=== PATIENT | female | born 1940 | race Caucasian/White ===

== ENCOUNTER 2024-07-12 19:20 | Inpatient (IN) | payer MEDICARE, SELFPAY ==
--- NOTE | 2024-07-12 18:56 | CT_ITS ---
PROCEDURE INFORMATION: Exam: CTA Chest With Contrast Exam date and time: 07/12/2024 7:38 PM Age: 83 years old Clinical indication: Shortness of breath; Additional info: Respiratory distress, pna vs pe TECHNIQUE: Imaging protocol: Computed tomographic angiography of the chest with contrast. Exam focused on the arteries. 3D rendering (Not supervised by radiologist): MIP and/or 3D reconstructed images were created by the technologist. Radiation optimization: All CT scans at this facility use at least one of these dose optimization techniques: automated exposure control; mA and/or kV adjustment per patient size (includes targeted exams where dose is matched to clinical indication); or iterative reconstruction. Contrast material: ISOUVE 370; Contrast volume: 70 ml; Contrast route: INTRAVENOUS (IV); COMPARISON: No relevant prior studies available. FINDINGS: Tubes, catheters and devices: There is a left chest implanted cardiac device. Pulmonary arteries: There is no evidence for clinically relevant pulmonary arterial filling defect. Tiny distal filling defects may be present but are of dubious clinical significance. Aorta: There is atherosclerotic disease of the visualized aorta and its major branch vessels. Lungs: Dense consolidations of the lower lungs are concerning for pneumonia. There are scattered areas of emphysema throughout the lungs. Scattered areas of bronchial wall thickening which are likely chronic inflammatory. A few areas of subpleural reticulation are noted, nonspecific. Pleural spaces: Small partially loculated left pleural effusion is noted. Heart: The heart is enlarged. Lymph nodes: Unremarkable. No enlarged lymph nodes. Gallbladder and biliary ducts: There is cholelithiasis within an otherwise normal gallbladder. Bones/joints: There is diffuse degenerative disease of the visualized osseous structures. There is exaggeration of the spinal curvature. There is diffuse osseous demineralization. Soft tissues: Unremarkable. IMPRESSION: 1. Dense consolidations of the lower lungs are concerning for pneumonia. 2. Small partially loculated left pleural effusion is noted. 3. No evidence for clinically relevant pulmonary arterial filling defect.
[2024-07-12 19:38] VITALS: PULSE 80; O2SAT 95
[2024-07-12] MEDS: SODIUM CHLORIDE 0.9% 10ML SYR (RAD ONLY) 10 ML IV (19:39)
[2024-07-12] MEDS: 0.9 % SODIUM CHLORIDE 50 ML VIAL IV (19:40)
[2024-07-12] MEDS: IOPAMIDOL-370 (76%);100ML BOTTLE 70 ML IV (19:40)
[2024-07-12 19:59] VITALS: BMI 30.4
[2024-07-12 20:00] VITALS: BP 112/62; PULSE 71; PULSE 72; RESP 22; O2SAT 93
--- NOTE | 2024-07-12 20:00 | P.HP_ITS ---
[facility] Disclaimer: The information contained in this section may have been updated after the patient was seen, as this information can be updated by other users. Social History Have you lived/traveled outside US in past 30 days?: No Contact w/someone who lives/traveled outside US past 30 days?: No Exposure to someone with infectious disease in past 14 days?: No Do you have a fever (greater than 100.4 F or 38 C)?: No Have you tested positive for COVID-19: No Exposed to someone with COVID-19 in past 14 days?: No Do you have a sore throat?: No Do you have a cough?: No Do you have any weakness?: No Do you have any diarrhea?: No Are you experiencing any unusual bleeding?: No Do you have any muscle aches/pain?: No Do you have any abdominal pain?: No Are you experiencing loss of taste or smell?: No Meds Home Medications and Allergies New Prescriptions to Start Prescriptions: Allergies Allergy/AdvReac Type Severity Reaction Status Date / Time From ANTIBIOTIC CREAM + PAIN Allergy Mild Uncoded 05/21/17 14:44 RELIEF Penicillin Allergy Unknown Uncoded 05/21/17 14:44 Exam Data for Last 24 hours Vital signs and Labs for Last 24 Hours: Pulse Resp BP Pulse Ox O2 Del Method O2 Flow Rate 72 22 112/62 93 L Nasal Cannula 6 07/12/24 20:00 07/12/24 20:00 07/12/24 20:00 07/12/24 20:00 07/12/24 20:00 07/12/24 20:00 I & O for Last 24 hours: Intake & Output 07/09/24 07/10/24 07/11/24 07/12/24 23:59 23:59 23:59 23:59 Weight 88 kg
[2024-07-12] MEDS: AMIODARONE HCL 150 MG in DEXTROSE 5 % IN WATER 100 ML 618 MG IV (20:32)
[2024-07-12] MEDS: AMIODARONE HCL 900 MG in DEXTROSE 5 % IN WATER 500 ML 34.53 MG IV (20:42)
--- NOTE | 2024-07-12 20:54 | ECG_ITS ---
APPROVED REPORT Exam: Resting ECG HR:66 bpm ECG Measurements Heart Rate 66 AXES [place] 178 P 167 QRSd 93 QRS 175 QT 497 T 160 QTc 511 Conclusion SINUS RHYTHM POSSIBLE RIGHT VENTRICULAR HYPERTROPHY [SOME/ALL OF: PROMINENT R IN V1, LATE TRANSITION, RAD, LAURA, SSS] INFERIOR MYOCARDIAL INFARCTION , PROBABLY OLD [40+ ms Q WAVE AND/OR ST/T ABNORMALITY IN II/aVF] ABNORMAL ECG UNCONFIRMED REPORT Electronically signed by : Urbano Whitaker MD 07/13/2024 07:50:05
[2024-07-12 21:08] LABS: Basophils % 0.1 % (0.1-2.0); Hematocrit 32.7 % (37.0-47.0); Hemoglobin 10.3 g/dL (12.2-16.2); Lymphocytes # 0.3 K/mm3 (0.7-4.5); Lymphocytes % 2.2 % (10-50); Mean Corpuscular HGB Conc 31.5 g/dL (31.8-35.4); Mean Corpuscular Hemoglobin 28.6 pg (27.0-31.2); Mean Corpuscular Volume 90.8 fl (81-99); Mean Platelet Volume 10.9 fl (7.4-10.4); Monocytes % 0.3 % (1.7-9.3); Neutrophils # 11.8 K/mm3 (1.8-7.8); Neutrophils % 95.9 % (37.0-80.0); Platelet Count 129 K/mm3 (142-424); Red Cell Distribution Width 14.1 % (11.5-17.5); White Blood Count 12.3 K/mm3 (4.8-10.8)
[2024-07-12 21:10] LABS: MANUAL DIFFERENTIAL MANUAL DIFFERENTIAL (MANUAL DIFF)
[2024-07-12 21:22] LABS: Adenovirus,PCR Not Detected (NotDetected); Bordetella Pertussis Not Detected (NotDetected); Chlamydophila Pneumoniae, PCR Not Detected (NotDetected); Coronavirus 19, PCR Not Detected (NotDetected); Coronavirus 229E Not Detected (NotDetected); Coronavirus NL63 Not Detected (NotDetected); Coronavirus OC43 Not Detected (NotDetected); Coronovirus HKU1,PCR Not Detected (NotDetected); Human Metapneumovirus Not Detected (NotDetected); Influenza A, PCR Not Detected (NotDetected); Influenza AH1, 2009 Not Detected (NotDetected); Influenza AH1, PCR Not Detected (NotDetected); Influenza AH3,PCR Not Detected (NotDetected); Influenza B, PCR Not Detected (NotDetected); Mycoplasma Pneumoniae, PCR Not Detected (NotDetected); Parainfluenza 1, PCR Not Detected (NotDetected); Parainfluenza 2, PCR Not Detected (NotDetected); Parainfluenza 3, PCR Not Detected (NotDetected); Parainfluenza 4, PCR Not Detected (NotDetected); Respiratory Syncytial Virus Not Detected (NotDetected); Rhinovirus/Enterovirus Not Detected (NotDetected)
[2024-07-12 21:25] LABS: Alanine Aminotransferase 32 U/L (12-78); Albumin Level 3.6 g/dl (3.5-5.0); Albumin/Globulin Ratio 1.3 (1.1-1.8); Alkaline Phosphatase 52 U/L (38-126); Anion Gap 16.3 mEq/L (5-15); Aspartate Amino Transferase 66 U/L (14-36); Bilirubin,Total 0.5 mg/dl (0.2-1.3); Blood Urea Nitrogen 17 mg/dl (7-17); Calcium 8.3 mg/dl (8.4-10.2); Carbon Dioxide 24 mmol/L (22.0-30.0); Chloride 101 mmol/L (98-107); Creatinine Clearance Estimated 61 mL/min (50-200); Estimated Glomerular Filt Rate 69 ml/min (>60); GFR (African American) 83 ML/MIN (>60); Globulin 2.8 g/dL (1.3-3.2); Glucose 225 mg/dl (74-100); Magnesium 1.6 mg/dl (1.6-2.3); Potassium 4.3 mmoL/L (3.5-5.1); Sodium 137 mmol/L (136-145); Total Protein,Serum 6.4 g/dl (6.3-8.2)
[2024-07-12 21:26] LABS: Lactic Acid 3.8 mmol/L (0.7-2.1)
[2024-07-12] MEDS: CEFTRIAXONE SODIUM 2 GM in 0.9 % SODIUM CHLORIDE 100 ML IV (21:31)
[2024-07-12 21:38] LABS: Troponin I 0.31 ng/ml (0.00-0.034)
[2024-07-12] MEDS: DOXYCYCLINE HYCLATE 100 MG in 0.9 % SODIUM CHLORIDE 250 ML 166.667 MG IV (21:38)
[2024-07-12 21:44] LABS: PTT Heparin (inpatient only) > 139.0 Seconds (50-75)
[2024-07-12 21:47] LABS: Lymphocytes % 4 % (10-50); Neutrophils % 96 % (42-76); RBC Morphology Normal; Total Cells Counted 100
[2024-07-12 21:48] LABS: Platelet Estimate Slight Decrease
[2024-07-12 22:00] VITALS: BP 114/58; PULSE 67; O2SAT 94
[2024-07-12 23:00] VITALS: BP 117/53; PULSE 62; RESP 16; O2SAT 94
[2024-07-12] MEDS: HEPARIN 25,000 UNITS/D5W 500 ML 29 UNIT IV (23:05)
[2024-07-13] VITALS (27 sets, daily range): BP systolic 108–173; BP diastolic 47–131; PULSE 62–102; RESP 16–25; TEMP 36.4–36.9; O2SAT 92–96; BMI 29.9
[2024-07-13] MEDS: IPRATROPIUM BROMIDE 0.5 MG/2.5ML SOLUTION IH ×4 (00:13→18:28)
[2024-07-13] MEDS: LEVALBUTEROL 1.25MG/3ML NEB 1.25 MG IH ×4 (00:13→18:28)
[2024-07-13] MEDS: HEPARIN DRIP CONSULT 1 EACH NOTAPPLIC (00:27)
[2024-07-13 01:04] LABS: Reflex Lactic Add Lactic Reflex
[2024-07-13 02:24] LABS: Lactic Acid Follow Up (RFLX 1) 2.7 mmol/L (0.7-2.1)
[2024-07-13 02:31] LABS: PTT Heparin (inpatient only) > 139.0 Seconds (50-75)
[2024-07-13] MEDS: HEPARIN 25,000 UNITS/D5W 500 ML 24 UNIT IV (02:48)
--- NOTE | 2024-07-13 03:09 | P.HP_ITS ---
History of Present Illness *Admission Date: 07/12/24 *Reason for visit:: Shortness of breath, rapid heart rate *History of present illness: This is an 83-year-old female with a past medical history of hypertension, atrial fibrillation on Eliquis, hyperlipidemia, prior cerebrovascular accident without residual deficit, COPD, tobacco dependence, and recently diagnosed malignant bladder tumor status post resection at the [facility] on July 10, who originally presented to [facility] via EMS with fever, cough, nausea, and vomiting that began the previous evening. She reports that she underwent bladder resection under general anesthesia with an indwelling urinary catheter placement on July 10. She felt well initially but developed nausea after supper on July 11, which progressively worsened throughout the day. She began to feel increasingly unwell and contacted EMS due to persistent symptoms of fever, cough, and generalized malaise. Upon arrival to the [facility] emergency department, her vital signs showed blood pressure of 148/67, heart rate 96, respiratory rate 20, temperature 100.3?F, and oxygen saturation of 95% on room air. Initial evaluation included a stat chest X-ray, which showed left basilar infiltrates. Urinalysis was positive for nitrites and leukocytes, though suspected to be contaminated. She was started on IV Rocephin, followed by oral Levaquin 500 mg, Tylenol for fever, and DuoNebs for respiratory support. Shortly after receiving DuoNebs, she developed atrial fibrillation with a rapid ventricular response (RVR) at 162 bpm. She was given 1.5 mg of IV Lopressor, which failed to reduce the heart rate, followed by 10 mg IV diltiazem, then started on a diltiazem drip. Troponin was elevated at 0.45, and laboratory work showed WBC 13.6, hemoglobin 11.8, creatinine 1.2, GFR 45, AST 43, lactic acid 1.6, and procalcitonin 0.56. Given her clinical status, consultation was made with Dr. Carrasquillo (cardiology), who recommended initiating anticoagulation with low-dose heparin and transferring her to [facility]. Upon arrival at [facility], she was noted to be on a 15L non-rebreather with oxygen saturation of 92%, and a diltiazem drip at 15 mg/hr. Her heart rate remained elevated at 135-140 bpm, with a blood pressure of 90/55. A CTA of the chest was performed, which ruled out pulmonary embolism but confirmed dense consolidations in the lower lungs concerning for pneumonia and a small partially loculated left pleural effusion. Scattered emphysematous changes with chronic bronchial wall thickening were also noted. Due to persistent tachycardia despite diltiazem, the patient was transitioned to an amiodarone bolus, which successfully converted her to sinus rhythm. An amiodarone drip was continued, and the patient reported significant improvement in symptoms with heart rate deceleration. She was successfully weaned from 15L non-rebreather to 5L nasal cannula and then to room air, maintaining an oxygen saturation of 92%. Repeat laboratory work at [facility] showed WBC 12.3, hemoglobin 10.3, anion gap 16.3, lactic acid initially 3.8 and down to 2.7 on repeat, troponin 0.31 (down from 0.45), and blood glucose 317, though she denies a history of diabetes. A repeat urinalysis was ordered and is pending. Given her improving hemodynamics and transition to sinus rhythm, she remains under close monitoring for pneumonia and potential sepsis, with continued antibiotic therapy and supportive care. [facility] Disclaimer: The information contained in this section may have been updated after the patient was seen, as this information can be updated by other users. Medical History (Updated 07/13/24 @ 18:10 by Josiah Hernandez MD) Pleural effusion, left Pulmonary emphysema Acute respiratory failure with hypoxia Bladder cancer Breast cancer History of stroke Rheumatoid arthritis Atrial fibrillation Hypertension COPD (chronic obstructive pulmonary disease) Surgical History H/O transurethral resection of bladder tumor (TURBT) Family History Other No significant family history Social History Smoking Status: Current every day smoker alcohol intake: never current occupational status: retired Travel in the last 8 weeks: Inside the [place] Have you lived/traveled outside US in past 30 days?: No Contact w/someone who lives/traveled outside US past 30 days?: No Exposure to someone with infectious disease in past 14 days?: No Do you have a fever (greater than 100.4 F or 38 C)?: No Have you tested positive for COVID-19: No Exposed to someone with COVID-19 in past 14 days?: No Do you have a sore throat?: No Do you have a cough?: No Do you have any weakness?: No Do you have any diarrhea?: No Are you experiencing any unusual bleeding?: No Do you have any muscle aches/pain?: No Do you have any abdominal pain?: No Are you experiencing loss of taste or smell?: No Other Medical History Have you received the Flu Vaccine for this season: Yes Have you received the Pneumonia Vaccine: Yes Review of Systems Review of Systems Review of systems (narrative): 13 point review of systems negative except as listed in HPI Meds Home Medications and Allergies Home Medications ?Medication ?Instructions ?Recorded ?Confirmed ?Type anastrozole 1 mg tablet 1 mg PO DAILY 07/12/24 07/12/24 History apixaban 5 mg tablet 5 mg PO BID 07/12/24 07/13/24 History escitalopram oxalate 20 mg tablet 20 mg PO DAILY 07/12/24 07/12/24 History famotidine 20 mg tablet 20 mg PO BID 07/12/24 07/12/24 History fluticasone furoate 100 100 mcg inhalation DAILY 07/12/24 07/12/24 History mcg/actuation blister powder for inhalation (Arnuity Ellipta) furosemide 20 mg tablet 20 mg PO DAILY 07/12/24 07/13/24 History hydralazine 25 mg tablet 25 mg PO BID 07/12/24 07/13/24 History metoprolol succinate 25 mg 25 mg PO DAILY 07/12/24 07/12/24 History tablet,extended release 24 hr multivitamin with iron-mineral 1 tab PO DAILY 07/12/24 07/12/24 History nicotine 14 mg/24 hr daily 14 mg transdermal DAILY 07/12/24 07/12/24 History transdermal patch nitroglycerin 0.4 mg sublingual 0.4 mg sublingual NEEDED PRN 07/12/24 07/12/24 History tablet Chest Pain rosuvastatin 40 mg tablet 40 mg PO HS 07/12/24 07/13/24 History vibegron 75 mg tablet 75 mg PO DAILY 07/12/24 07/12/24 History losartan 100 mg tablet 100 mg PO DAILY 07/13/24 07/13/24 History New Prescriptions to Start Prescriptions: Allergies Allergy/AdvReac Type Severity Reaction Status Date / Time bacitracin (From Neosporin Allergy Unknown Unknown Verified 07/13/24 07:49 Plus PainRelief(demond)) allergy reaction neomycin (From Neosporin Allergy Unknown Unknown Verified 07/13/24 07:49 Plus PainRelief(demond)) allergy reaction Penicillins Allergy Unknown Unknown Verified 07/13/24 07:49 allergy reaction polymyxin B (From Neosporin Allergy Unknown Unknown Verified 07/13/24 07:49 Plus PainRelief(demond)) allergy reaction pramoxine (From Neosporin Allergy Unknown Unknown Verified 07/13/24 07:49 Plus PainRelief(demond)) allergy reaction Exam Data for Last 24 hours Vital signs and Labs for Last 24 Hours: Temp Pulse Resp BP Pulse Ox O2 Del Method O2 Flow Rate 97.5 F L 62 16 109/52 L 95 Nasal Cannula 2 07/13/24 00:00 07/13/24 02:00 07/13/24 02:00 07/13/24 02:00 07/13/24 02:00 07/13/24 02:00 07/13/24 02:00 Laboratory Results - last 24 hr 07/12/24 21:00: WBC 12.3 H, RBC 3.60 L, Hgb 10.3 L, Hct 32.7 L, MCV 90.8, MCH 28.6, MCHC 31.5 L, RDW 14.1, Plt Count 129 L, MPV 10.9 H, Neut % (Auto) 95.9 H, Lymph % (Auto) 2.2 L, Gonzales % (Auto) 0.3 L, Eos % (Auto) 0.0 L, Baso % (Auto) 0.1, Neut # (Auto) 11.8 H, Lymph # (Auto) 0.3 L, Gonzales # (Auto) 0.0 L, Eos # (Auto) 0.0, Baso # (Auto) 0.0, Total Counted 100, Neutrophils % (Manual) 96 H, Lymphocytes % (Manual) 4 L, Platelet Estimate Slight decrease, RBC Morphology Normal, APTT > 139.0 H*, Sodium 137, Potassium 4.3, Chloride 101, Carbon Dioxide 24, Anion Gap 16.3 H, BUN 17, Creatinine 0.80, Estimated Creat Clear 61, Estimated GFR 69, Est GFR ( Amer) 83, Glucose 225 H, Lactate 3.8 H, Calcium 8.3 L, Magnesium 1.6, Total Bilirubin 0.5, AST 66 H, ALT 32, Alkaline Phosphatase 52, Troponin I 0.31 H, Total Protein 6.4, Albumin 3.6, Globulin 2.8, Albumin/Globulin Ratio 1.3 07/12/24 21:08: Chlamy pneumoniae PCR Not detected, Adenovirus (PCR) Not detected, B. pertussis DNA (PCR) Not detected, Coronavirus OC43 (PCR) Not detected, Coronavirus HKU1 (PCR) Not detected, Coronavirus 229E (PCR) Not detected, SARS-CoV-2 (PCR) Not detected, Coronavirus NL63 (PCR) Not detected, Human Metapneumovir PCR Not detected, Influenza A (H1) PCR Not detected, Influ A (H1N1/09) PCR Not detected, Influenza A (H3) PCR Not detected, Influenza Type A (PCR) Not detected, Influenza Type B (PCR) Not detected, M. pneumoniae (PCR) Not detected, Parainfluenza 1 (PCR) Not detected, Parainfluenza 2 (PCR) Not detected, Parainfluenza 3 (PCR) Not detected, Parainfluenza 4 (PCR) Not detected, RSV (PCR) Not detected, Entero/Rhino (PCR) Not detected 07/13/24 02:05: APTT > 139.0 H*, Lactate 2.7 H I & O for Last 24 hours: Intake & Output 07/10/24 07/11/24 07/12/24 07/13/24 23:59 23:59 23:59 23:59 Intake Total 309.339 / 309.339 Balance 309.339 / 309.339 Weight 88 kg Constitutional Constitutional: moderate distress *Routine HEENT Exam Head: Present normocephalic Eye: Present EOMI and PERRL ENT: Present mucous membranes moist *Routine Neck Exam Neck: Present supple; Absent lymphadenopathy *Routine Respiratory Exam Respiratory: Present CTA bilaterally and diminished air movement (Bilateral lower lobes) *Routine Cardiovascular Exam Cardiovascular: Present RRR *Routine Abdominal Exam Abdominal: Present soft and normoactive bowel sounds; Absent tenderness *Routine Rectal Exam Rectal:: deferred *Routine Genitalia Exam Genitalia:: deferred *Routine Extremities Exam Extremities: Absent cyanosis, clubbing or edema *Routine Skin Exam Skin: Present dry, pallor and warm; Absent rash *Routine Neurological Exam Neurological: Present alert and oriented X3 Assessment and Plan *Assessment and plan (1) Tobacco dependence: Status: Acute Category: Medical Code(s): F17.200 - Nicotine dependence, unspecified, uncomplicated (2) Atrial fibrillation with rapid ventricular response: Status: Acute Category: Medical Code(s): I48.91 - Unspecified atrial fibrillation (3) Leukocytosis: Status: Acute Category: Medical Code(s): D72.829 - Elevated white blood cell count, unspecified (4) Hyperglycemia: Status: Acute Category: Medical Code(s): R73.9 - Hyperglycemia, unspecified (5) Elevated lactic acid level: Status: Acute Category: Medical Code(s): R79.89 - Other specified abnormal findings of blood chemistry (6) Pneumonia: Status: Acute Category: Medical Code(s): J18.9 - Pneumonia, unspecified organism (7) Thrombocytopenia: Status: Acute Category: Medical Code(s): D69.6 - Thrombocytopenia, unspecified Plan Medical Decision Making: This is an 83-year-old female with hypertension, atrial fibrillation on Eliquis, COPD, prior CVA, and recent bladder tumor resection, presenting with fever, cough, and nausea found to have community-acquired pneumonia with possible sepsis. She initially developed atrial fibrillation with RVR refractory to diltiazem, requiring conversion to sinus rhythm with amiodarone. CTA ruled out PE but showed dense lower lung consolidation with a small pleural effusion, and she was transitioned to IV ceftriaxone and IV doxycycline for pneumonia. She remains hemodynamically stable with improving lactate (3.8 to 2.7) but has persistent hyperglycemia (317) without known diabetes, prompting A1c evaluation in the morning. She is being closely monitored for respiratory status, infection resolution, and recurrent arrhythmia while continuing supportive care. Troponin is downtrending from 450-317 will continue to trend NSTEMI * Troponin elevated at 0.45, downtrending to 0.31, consistent with demand ischemia rather than acute plaque rupture * ECG showed atrial fibrillation with RVR, no acute ischemic ST changes * Likely secondary to sepsis and tachyarrhythmia-related myocardial strain * Continue amiodarone drip for rhythm control, transition to oral as appropriate * Continue heparin drip * Monitor for recurrent ischemia, repeat troponin if indicated * Cardiology has been consulted Atrial fibrillation with rapid ventricular response, now converted to sinus rhythm * Initially refractory to diltiazem, converted to sinus rhythm with amiodarone bolus * Continued on amiodarone drip, monitor for bradycardia and QT prolongation * Maintain anticoagulation with Eliquis * Monitor for recurrence of arrhythmia Community-acquired pneumonia * CTA chest shows dense consolidation in the lower lungs concerning for pneumonia, small partially loculated left pleural effusion * WBC 12.3, improving from 13.6; downtrending lactic acid (3.8 to 2.7), consistent with resolving infection * Transitioned to IV ceftriaxone and IV doxycycline for continued CAP coverage * Monitor for clinical improvement, repeat imaging if no response to treatment Sepsis secondary to pneumonia * Initial presentation with low-grade fever, slight leukocytosis, and lactic acid of 3.8, now improving * Hemodynamically stable after IV fluids and antibiotics * Continue to monitor vital signs, lactate, and inflammatory markers Chronic obstructive pulmonary disease with acute exacerbation * Likely triggered by pneumonia and systemic illness * Initially required 15L non-rebreather, now weaned to room air with SpO2 of 92% * Continued DuoNebs as needed for symptomatic relief * Monitor for respiratory decompensation * Pulmonary consult requested Thrombocytopenia (Platelet count 138) * Mild thrombocytopenia, likely multifactorial (infection, recent surgery, anticoagulation with heparin drip) * No active bleeding or clinical signs of platelet dysfunction * Monitor serial platelet counts to assess for further decline * Monitor for heparin-induced thrombocytopenia (HIT), especially with continued heparin drip * Consider switching to alternative anticoagulation if platelet count trends downward * Evaluate for sepsis-related consumption, bone marrow suppression, or medication effect if worsens Chronic kidney disease with acute kidney injury * Creatinine 1.2, GFR 45, stable compared to prior * Monitor renal function while on IV antibiotics and fluids * Avoid nephrotoxic medications, adjust dosing as needed Hyperglycemia, no prior history of diabetes * Blood glucose 317, no reported diabetes history * A1c will be performed in the morning to evaluate for underlying diabetes * Monitor glucose trends and adjust management if needed Suspected bladder cancer with recent resection * Indwelling Coats catheter in place postoperatively * Monitor for any signs of urinary tract infection or catheter-related complications * UA pending for further evaluation * Requested records from do not currently reflect most recent visit since resection only 2 days prior Cardiac pacemaker * No acute pacemaker-related complications noted * Continue routine monitoring Ongoing tobacco use (5-6 cigarettes daily) * Contributing factor to COPD and cardiovascular disease * Offer smoking cessation counseling Disposition * Continue IV ceftriaxone and IV doxycycline for pneumonia * Maintain amiodarone drip with transition to oral as clinically appropriate * Perform A1c in the morning to assess for undiagnosed diabetes * Monitor renal function, electrolytes, and glucose levels * Trend inflammatory markers and reassess need for continued IV antibiotics * Continue supportive care, reassess oxygen needs, and evaluate response to treatment * Patient is DNR/DNI Rounded on patient with nurse practitioner. Personally examined and interviewed patient. Agree with exam findings and care plan as documented.
[2024-07-13 04:14] LABS: Reflex Lactic (2 hrs) Add Lactic Reflex
[2024-07-13 04:27] LABS: PTT Heparin (inpatient only) > 139.0 Seconds (50-75)
[2024-07-13] MEDS: HEPARIN 25,000 UNITS/D5W 500 ML 19 UNIT IV (04:49)
[2024-07-13] MEDS: humaLOG 100 UNITS/ML 10ML VIAL (SSI) SUBCUT ×2 (05:30→11:21)
[2024-07-13 05:38] LABS: Appearance,Urine Slightly Cloudy (Clear); Bilirubin,Urine Negative (Negative); Blood, Urine 3+ (Negative); Glucose,Urine (UA) Negative (Negative); Ketones,Urine Negative (Negative); Leukocyte Esterase,Urine 1+ (Negative); Nitrate,Urine NEGATIVE (Negative); Protein,Urine TRACE (Negative); Specific Gravity, Urine <= 1.005 (1.005-1.030); Urobilinogen,Urine 0.2 EU/dl (0.2)
[2024-07-13 05:39] LABS: Color,Urine Dark Yellow (Yellow)
[2024-07-13 05:40] LABS: Microscopic, Urine URINE MICROSCOPIC (MICROSCOPIC)
[2024-07-13 05:52] LABS: Bacteria,Urine Trace /lpf; RBC,Urine 50-100 #/hpf (0-3); Squamous Epithelial Cell,Urine Occasional #/hpf (0-5)
[2024-07-13 05:56] LABS: PTT Heparin (inpatient only) > 139.0 Seconds (50-75)
--- NOTE | 2024-07-13 06:00 | CA_ITS ---
APPROVED REPORT EXAM: Comprehensive 2D, Doppler, and color-flow Echocardiogram Deaf/Hard Of Hearing Specialist: Yarelis Cabrera RDCS Ht: 5 ft 7 in Wt: 190lbs BSA: 1.98 BP: 109/52 mmHg Indications: CHF,SVT,CVA HISTORY M-Mode Dimensions RVDd 1.71 cm (0.9-2.6) LA Diam 4.76 cm (1.9-4.0) LVDd 5.16 cm (3.5-5.7) LVDs 3.42 cm (3.5-5.7) IVSd 0.76 cm (0.6-1.1) PWd 0.76 cm (0.6-1.1) EF (Teich) 62.20% FS 33.70% EDV (Teich) 127.20 mL ESV (Teich) 48.10 mL LV Diastology E Decel Time 260 (160-240 msec) E/A Ratio 1.4 Mitral Valve MV E Max Jian. 108.0 (40-130 cm/s) MV A Velocity 79.0 (40-130 cm/s) E/A Ratio 1.37 MV PHT 76.0 ms Tricuspid Valve TR P. Velocity 302.00 cm/s RAP Estimate 10.00 mmHg RVSP 46.50 mmHg Left Ventricle The left ventricle is normal size. The left ventricular systolic function is hyperkinetic. There is increased LV wall thickness. Grade 2 diastolic dysfunction is present. LVEF is 70%. Right Ventricle Right ventricle is moderately dilated. The right ventricular systolic function is normal. Atria Left atrium is severely dilated. Right atrium is severely dilated. There is no Doppler evidence of interatrial shunt. Aortic Valve The aortic valve is mildly thickened. There is no aortic valvular stenosis. Mild aortic regurgitation. Mitral Valve The mitral valve leaflets are mildly thickened. No evidence of mitral valve stenosis. Mild mitral regurgitation. Tricuspid Valve Tricuspid valve is grossly normal in structure and function. Moderate tricuspid regurgitation. RVSP is 35-40 mmHg. Pulmonic Valve The pulmonary valve is normal in structure. Mild pulmonic regurgitation. Great Vessels The aortic root is normal in size. The ascending aorta is not well-visualized. IVC is normal in size and collapses >50% with inspiration. Pericardium There is no pericardial effusion. Other Information Study Quality: Fair Conclusion Hypokinetic LV systolic function (LVEF 70%). Grade 2 diastolic dysfunction. Moderate RV dilation with normal RV function. Severe biatrial dilation. Mild AI, mild MR, mild PI. Moderate TR. RVSP 35-40 mmHg. Electronically signed by : Ciara Osullivan MD 07/13/2024 11:08:17
[2024-07-13] MEDS: HEPARIN 25,000 UNITS/D5W 500 ML 14 UNIT IV (06:04)
[2024-07-13 07:38] LABS: Lactic Acid Follow up (RFLX 2) 2.4 mmol/L (0.7-2.1)
[2024-07-13 07:40] LABS: PTT Heparin (inpatient only) 124.6 Seconds (50-75)
[2024-07-13 08:10] LABS: Hemoglobin A1C 5.7 % (4.0-6.0)
--- NOTE | 2024-07-13 08:12 | P.CONPHA_ITS ---
[facility] Pharmacy Heparin Dosing Demographic Data Admission date:: 07/12/24 Date: 07/13/24 Time: 08:12 Allergies Allergy/AdvReac Type Severity Reaction Status Date / Time bacitracin (From Neosporin Allergy Unknown Unknown Verified 07/13/24 07:49 Plus PainRelief(demond)) allergy reaction neomycin (From Neosporin Allergy Unknown Unknown Verified 07/13/24 07:49 Plus PainRelief(demond)) allergy reaction Penicillins Allergy Unknown Unknown Verified 07/13/24 07:49 allergy reaction polymyxin B (From Neosporin Allergy Unknown Unknown Verified 07/13/24 07:49 Plus PainRelief(demond)) allergy reaction pramoxine (From Neosporin Allergy Unknown Unknown Verified 07/13/24 07:49 Plus PainRelief(demond)) allergy reaction Height: 1.7 m Weight: 86.6 kg Indication Medication therapy:: Heparin Current Indications:: AFIB Current Active Problems (Updated 07/13/24 @ 11:03 by Ameya Rae MD) Pleural effusion, left (Acute) Pulmonary emphysema (Acute) Acute respiratory failure with hypoxia (Acute) Thrombocytopenia (Acute) Pneumonia (Acute) Elevated lactic acid level (Acute) Hyperglycemia (Acute) Leukocytosis (Acute) Atrial fibrillation with rapid ventricular response (Acute) Tobacco dependence (Acute) CVA?: No Bleeding problem?: No Kidney disease?: No [place]?: No Desired PTT range:: 50-75 seconds Labs Anticoagulation Lab Results:: 07/12/24 21:00 Hgb 10.3 L Hct 32.7 L Plt Count 129 L Monitoring Dose Monitor 1: Date: 07/12/24 Time: 21:00 PTT Result:: >139 Infusion Rate:: 29 ML/HR Dose Monitor 2: Date: 07/13/24 Time: 02:05 PTT Result:: >139 Infusion Rate:: 24 ML/HR Dose Monitor 3: Date: 07/13/24 Time: 02:38 PTT Result:: >139 Infusion Rate:: 19 ML/HR Dose Monitor 4: Date: 07/13/24 Time: 05:16 PTT Result:: >139 Infusion Rate:: 14 ML/HR Dose Monitor 5: Date: 07/13/24 Time: 06:59 PTT Result:: 124.6 Infusion Rate:: 10 ML/HR Dose Monitor 6: Date: 07/13/24 Time: 09:16 PTT Result:: 65.4 Infusion Rate:: 10 ML/HR Core Measures Is INR > or = 2 at discharge?: No Most Recent Labs:: Laboratory Results - last 24 hr 07/12/24 04:39: Urine Color Dark yellow, Urine Appearance Slightly cloudy, Urine pH 6.0, Ur Specific [place] <= 1.005, Urine Glucose (UA) Negative, Urine Ketones Negative, Urine Bilirubin Negative, Urine Urobilinogen 0.2, Urine RBC 50-100, Urine WBC 5-10, Ur Squamous Epith Cells Occasional, Urine Bacteria Trace 07/12/24 21:00: WBC 12.3 H, RBC 3.60 L, Hgb 10.3 L, Hct 32.7 L, MCV 90.8, MCH 28.6, MCHC 31.5 L, RDW 14.1, Plt Count 129 L, MPV 10.9 H, Neut % (Auto) 95.9 H, Lymph % (Auto) 2.2 L, [place] % (Auto) 0.3 L, Eos % (Auto) 0.0 L, Baso % (Auto) 0.1, Neut # (Auto) 11.8 H, Lymph # (Auto) 0.3 L, [place] # (Auto) 0.0 L, Eos # (Auto) 0.0, Baso # (Auto) 0.0, Total Counted 100, Neutrophils % (Manual) 96 H, Lymphocytes % (Manual) 4 L, Platelet Estimate Slight decrease, RBC Morphology Normal, APTT > 139.0 H*, Sodium 137, Potassium 4.3, Chloride 101, Carbon Dioxide 24, Anion Gap 16.3 H, BUN 17, Creatinine 0.80, Estimated Creat Clear 61, Estimated GFR 69, Est GFR ( Amer) 83, Glucose 225 H, Lactate 3.8 H, Calcium 8.3 L, Magnesium 1.6, Total Bilirubin 0.5, AST 66 H, ALT 32, Alkaline Phosphatase 52, Troponin I 0.31 H, Total Protein 6.4, Albumin 3.6, Globulin 2.8, Albumin/Globulin Ratio 1.3 07/12/24 21:08: Chlamy pneumoniae PCR Not detected, Adenovirus (PCR) Not detected, B. pertussis DNA (PCR) Not detected, Coronavirus OC43 (PCR) Not detected, Coronavirus HKU1 (PCR) Not detected, Coronavirus 229E (PCR) Not detected, SARS-CoV-2 (PCR) Not detected, Coronavirus NL63 (PCR) Not detected, Human Metapneumovir PCR Not detected, Influenza A (H1) PCR Not detected, Influ A (H1N1/09) PCR Not detected, Influenza A (H3) PCR Not detected, Influenza Type A (PCR) Not detected, Influenza Type B (PCR) Not detected, M. pneumoniae (PCR) Not detected, Parainfluenza 1 (PCR) Not detected, Parainfluenza 2 (PCR) Not detected, Parainfluenza 3 (PCR) Not detected, Parainfluenza 4 (PCR) Not detected, RSV (PCR) Not detected, Entero/Rhino (PCR) Not detected 07/13/24 02:05: APTT > 139.0 H*, Lactate 2.7 H 07/13/24 03:58: APTT > 139.0 H* 07/13/24 05:16: APTT > 139.0 H* 07/13/24 06:59: APTT 124.6 H*, Hemoglobin A1c 5.7, Lactate 2.4 H If INR was < than 2.0 why was therapy stopped?: ELIQUIS RESTARTED Were Heparin and Warfarin started on the same day?: No If not, why?: ALEKSANDER
[2024-07-13] MEDS: CEFTRIAXONE 1 GM 1 GM in 0.9 % SODIUM CHLORIDE 50 ML IV (09:02)
[2024-07-13] MEDS: HYDRALAZINE HCL 25MG TABLET 25 MG PO ×3 (09:02→20:07)
[2024-07-13] MEDS: FAMOTIDINE 20MG TABLET 20 MG PO ×2 (09:03→20:07)
--- NOTE | 2024-07-13 09:11 | P.PN_ITS ---
Subjective *Date: 07/13/24 *Time: 19:19 Interval history: Patient feeling somewhat today. Weaned to 3 L oxygen. No nausea or vomiting. Denies any chest pain. Afebrile overnight. Heart rate better controlled after starting amiodarone. Medical Exam Vital signs and Labs for Last 24 Hours: Vital Signs Temp Pulse Pulse Resp BP BP Pulse Ox 07/13/24 08:16 84 20 127/61 95 07/13/24 08:00 97.5 F L 89 17 138/54 L 92 L 07/13/24 07:00 72 143/57 H 94 L 07/13/24 07:00 07/13/24 06:49 68 07/13/24 06:49 69 07/13/24 06:49 94 L 07/13/24 06:00 73 18 139/63 95 07/13/24 05:00 67 18 131/63 93 L 07/13/24 04:56 07/13/24 04:00 97.7 F 67 18 124/67 93 L 07/13/24 04:00 67 94 L 07/13/24 04:00 67 07/13/24 03:00 68 18 122/58 L 95 07/13/24 03:00 07/13/24 02:00 62 16 109/52 L 95 07/13/24 01:00 69 18 108/47 L 95 07/13/24 01:00 07/13/24 00:14 68 07/13/24 00:00 67 94 L 07/13/24 00:00 97.5 F L 66 20 109/50 L 94 L 07/13/24 00:00 66 07/12/24 23:00 62 16 117/53 L 94 L 07/12/24 22:34 07/12/24 22:00 67 114/58 L 94 L 07/12/24 21:00 07/12/24 20:00 71 07/12/24 20:00 72 22 112/62 93 L 07/12/24 19:38 80 95 O2 Del Method O2 Flow Rate 07/13/24 08:16 Nasal Cannula 3 07/13/24 08:00 Nasal Cannula 3 07/13/24 07:00 Nasal Cannula 3 07/13/24 07:00 Nasal Cannula 3 07/13/24 06:49 07/13/24 06:49 07/13/24 06:49 Nasal Cannula 3 07/13/24 06:00 Nasal Cannula 3 07/13/24 05:00 Nasal Cannula 3 07/13/24 04:56 Nasal Cannula 3 07/13/24 04:00 Nasal Cannula 6 07/13/24 04:00 Nasal Cannula 3 07/13/24 04:00 07/13/24 03:00 Nasal Cannula 3 07/13/24 03:00 Nasal Cannula 3 07/13/24 02:00 Nasal Cannula 2 07/13/24 01:00 Nasal Cannula 6 07/13/24 01:00 Nasal Cannula 6 07/13/24 00:14 07/13/24 00:00 Nasal Cannula 6 07/13/24 00:00 Nasal Cannula 6 07/13/24 00:00 07/12/24 23:00 Nasal Cannula 6 07/12/24 22:34 Nasal Cannula 6 07/12/24 22:00 Nasal Cannula 6 07/12/24 21:00 Nasal Cannula 07/12/24 20:00 07/12/24 20:00 Nasal Cannula 6 07/12/24 19:38 Nasal Cannula 6 Intake and Output 07/12/24 07/13/24 07/13/24 23:59 07:59 15:59 Intake Total 309.339 / 644.339 335 / 644.339 Output Total 1300 / 1300 Balance -990.661 / -655.661 335 / -655.661 Intake: Intake, Oral Amount 120 / 455 335 / 455 Intake, Total IV Amount 189.339 / 189.339 Output: Output, Urine Amount (Catheter) 1300 / 1300 Coats 1300 / 1300 Other: Number of Unmeasured Voids 0 Weight 88 kg 86.6 kg 86.6 kg Patient Weight 07/13/24 23:59 Weight 86.6 kg Laboratory Results - last 24 hr 07/12/24 04:39: Urine Color Dark yellow, Urine Appearance Slightly cloudy, Urine pH 6.0, Ur Specific [place] <= 1.005, Urine Glucose (UA) Negative, Urine Ketones Negative, Urine Bilirubin Negative, Urine Urobilinogen 0.2, Urine RBC 50-100, Urine WBC 5-10, Ur Squamous Epith Cells Occasional, Urine Bacteria Trace 07/12/24 21:00: WBC 12.3 H, RBC 3.60 L, Hgb 10.3 L, Hct 32.7 L, MCV 90.8, MCH 28.6, MCHC 31.5 L, RDW 14.1, Plt Count 129 L, MPV 10.9 H, Neut % (Auto) 95.9 H, Lymph % (Auto) 2.2 L, [place] % (Auto) 0.3 L, Eos % (Auto) 0.0 L, Baso % (Auto) 0.1, Neut # (Auto) 11.8 H, Lymph # (Auto) 0.3 L, [place] # (Auto) 0.0 L, Eos # (Auto) 0.0, Baso # (Auto) 0.0, Total Counted 100, Neutrophils % (Manual) 96 H, Lymphocytes % (Manual) 4 L, Platelet Estimate Slight decrease, RBC Morphology Normal, APTT > 139.0 H*, Sodium 137, Potassium 4.3, Chloride 101, Carbon Dioxide 24, Anion Gap 16.3 H, BUN 17, Creatinine 0.80, Estimated Creat Clear 61, Estimated GFR 69, Est GFR ( Amer) 83, Glucose 225 H, Lactate 3.8 H, Calcium 8.3 L, Magnesium 1.6, Total Bilirubin 0.5, AST 66 H, ALT 32, Alkaline Phosphatase 52, Troponin I 0.31 H, Total Protein 6.4, Albumin 3.6, Globulin 2.8, Albumin/Globulin Ratio 1.3 07/12/24 21:08: Chlamy pneumoniae PCR Not detected, Adenovirus (PCR) Not detected, B. pertussis DNA (PCR) Not detected, Coronavirus OC43 (PCR) Not detected, Coronavirus HKU1 (PCR) Not detected, Coronavirus 229E (PCR) Not detected, SARS-CoV-2 (PCR) Not detected, Coronavirus NL63 (PCR) Not detected, Human Metapneumovir PCR Not detected, Influenza A (H1) PCR Not detected, Influ A (H1N1/) PCR Not detected, Influenza A (H3) PCR Not detected, Influenza Type A (PCR) Not detected, Influenza Type B (PCR) Not detected, M. pneumoniae (PCR) Not detected, Parainfluenza 1 (PCR) Not detected, Parainfluenza 2 (PCR) Not detected, Parainfluenza 3 (PCR) Not detected, Parainfluenza 4 (PCR) Not detected, RSV (PCR) Not detected, Entero/Rhino (PCR) Not detected 07/13/24 02:05: APTT > 139.0 H*, Lactate 2.7 H 07/13/24 03:58: APTT > 139.0 H* 07/13/24 05:16: APTT > 139.0 H* 07/13/24 06:59: APTT 124.6 H*, Hemoglobin A1c 5.7, Lactate 2.4 H I & O for Labs for Last 24 Hours: Intake & Output 07/10/24 07/11/24 07/12/24 07/13/24 23:59 23:59 23:59 23:59 Intake Total 644.339 / 644.339 Output Total 1300 / 1300 Balance -655.661 / -655.661 Weight 88 kg 86.6 kg Constitutional: Present mild distress, obese, chronically ill appearing and cooperative Head: Present atraumatic and normocephalic ENT: Present normal exam Respiratory: Present prolonged expiratory phase, wheezes, crackles and normal respiratory effort; Absent rhonchi Cardiac: Present Regular Rate Comment:: Irregular rhythm GI: Present soft and normal bowel sounds; Absent distention or tenderness Extremities: Present normal inspection and full ROM Skin: Present intact; Absent erythema Neuro: Present Grossly Intact, alert, awake, oriented x 3 and moves all extremities Assessment and Plan *Assessment and plan (1) Acute respiratory failure with hypoxia: Status: Acute Category: Medical Code(s): J96.01 - Acute respiratory failure with hypoxia (2) Sepsis: Status: Acute Category: Medical Code(s): A41.9 - Sepsis, unspecified organism (3) Pleural effusion, left: Status: Acute Category: Medical Code(s): J90 - Pleural effusion, not elsewhere classified (4) Atrial fibrillation with rapid ventricular response: Status: Acute Category: Medical Code(s): I48.91 - Unspecified atrial fibrillation (5) Pulmonary emphysema: Status: Acute Category: Medical Code(s): J43.9 - Emphysema, unspecified (6) Leukocytosis: Status: Acute Category: Medical Code(s): D72.829 - Elevated white blood cell count, unspecified (7) Hyperglycemia: Status: Acute Category: Medical Code(s): R73.9 - Hyperglycemia, unspecified (8) Elevated lactic acid level: Status: Acute Category: Medical Code(s): R79.89 - Other specified abnormal findings of blood chemistry (9) Pneumonia: Status: Acute Category: Medical Code(s): J18.9 - Pneumonia, unspecified organism (10) Thrombocytopenia: Status: Acute Category: Medical Code(s): D69.6 - Thrombocytopenia, unspecified (11) Tobacco dependence: Status: Acute Category: Medical Code(s): F17.200 - Nicotine dependence, unspecified, uncomplicated (12) Bladder cancer: Status: Chronic Category: Medical Code(s): C67.9 - Malignant neoplasm of bladder, unspecified Plan This is an 83-year-old female with hypertension, atrial fibrillation on Eliquis, COPD, prior CVA, and recent bladder tumor resection, presenting with fever, cough, and nausea found to have community-acquired pneumonia with possible sepsis. She initially developed atrial fibrillation with RVR refractory to diltiazem, requiring conversion to sinus rhythm with amiodarone. CTA ruled out PE but showed dense lower lung consolidation with a small pleural effusion, and she was transitioned to IV ceftriaxone and IV doxycycline for pneumonia. She remains hemodynamically stable with improving lactate (3.8 to 2.7) but has persistent hyperglycemia (317) without known diabetes, prompting A1c evaluation in the morning. She is being closely monitored for respiratory status, infection resolution, and recurrent arrhythmia while continuing supportive care. Troponin is downtrending from 450-317 will continue to trend. Patient showing improvement this morning. Continuing on amiodarone. Transition to stepdown level of care. Oxygen weaning. Overall doing well. Continues to require patient management. Therapy evaluated, will need placement for rehab. Problems addressed as follows: NSTEMI A-fib with RVR - Discussed case with cardiology, patient has known history of A-fib, responded well to amiodarone. Resume home metoprolol and Eliquis. Elevated troponin likely secondary to demand ischemia from A-fib RVR consistent with type II NSTEMI. Recommend considering ischemic workup as an outpatient. -Echo obtained, formal read still pending. -Continue Eliquis 5 mg twice daily -Complete amiodarone drip. Currently in sinus rhythm. Will hold on further initiation of amiodarone orally just yet -Troponin elevated at 0.45, down trended to 0.3, type II NSTEMI Sepsis Community acquired pneumonia Acute hypoxemic respiratory failure OPD -CTA chest obtained showing dense consolidation in lower lobes with small loculated left-sided pleural effusion -White count improved today at 10.6. Hemoglobin 9.6. Repeat CBC, CMP, magnesium ordered for the morning. - Comprehensive respiratory panel negative - Discussed case with pulmonology, recommend continuing ceftriaxone and azithromycin pending cultures. Nasal MRSA swab obtained. Continue Trelegy 100 inhaler and DuoNebs every 6 hours as needed. Oxygen goal 90%, supplemental oxygen as needed. Currently on 2 L Thrombocytopenia (Platelet count 138) - mild thrombocytopenia, likely multifactorial (infection, recent surgery, anticoagulation with heparin drip) - No active bleeding or clinical signs of platelet dysfunction Chronic kidney disease with acute kidney injury - Creatinine 1.2, GFR 45, stable compared to prior; Creatinine improved with BUN 20, creatinine 0.8. Caution with nephrotoxins. Hyperglycemia, no prior history of diabetes -Glucose elevated at 300 on arrival. A1c obtained normal at 5.7. No signs of diabetes. Discontinued fingersticks and insulin Recurrent bladder cancer with recent resection -Case discussed with urologist from [facility], recommended pulling Coats as she is postop day 3. Monitor for urine output. -Path still pending from biopsies Tobacco use disorder: Nicotine patch while admitted DNR/DNI Eliquis twice daily Cardiac diet
--- NOTE | 2024-07-13 09:32 | P.CONS_ITS ---
History of Present Illness History of present illness: Ms. Arellano is a 83-year-old female current smoker greater than [id number] smoking history, COPD at baseline Trelegy 100 inhaler not using any oxygen supplementation with reported history of hypertension atrial fibrillation on Eliquis hyperlipidemia COPD, CVA history of bladder tumor status postresection on Jul 10 at [facility] presented with worsening respiratory distress cough fever nausea vomiting and pulmonary was called for further evaluation and management. Patient now admits significant improvement in her respiratory status. Multiple other complaints including upper extremity tremors, bladder spasms and pain PFSH [facility] Disclaimer: The information contained in this section may have been updated after the patient was seen, as this information can be updated by other users. Medical History (Updated 07/13/24 @ 11:03 by Ameya Rae MD) Pleural effusion, left Pulmonary emphysema Acute respiratory failure with hypoxia Bladder cancer Breast cancer History of stroke Rheumatoid arthritis Atrial fibrillation Hypertension COPD (chronic obstructive pulmonary disease) Surgical History H/O transurethral resection of bladder tumor (TURBT) Family History Other No significant family history Social History (Updated 07/13/24 @ 04:01 by Rasheed Gomez APRN) Smoking Status: Current every day smoker alcohol intake: never current occupational status: retired Travel in the last 8 weeks: Inside the [place] Have you lived/traveled outside US in past 30 days?: No Contact w/someone who lives/traveled outside US past 30 days?: No Exposure to someone with infectious disease in past 14 days?: No Do you have a fever (greater than 100.4 F or 38 C)?: No Have you tested positive for COVID-19: No Exposed to someone with COVID-19 in past 14 days?: No Do you have a sore throat?: No Do you have a cough?: No Do you have any weakness?: No Do you have any diarrhea?: No Are you experiencing any unusual bleeding?: No Do you have any muscle aches/pain?: No Do you have any abdominal pain?: No Are you experiencing loss of taste or smell?: No Review of Systems Constitutional Constitutional: Reports anorexia, Reports body ache(s) and Reports fatigue Eyes Eyes: Denies eye discharge, Denies dry eyes, Denies irritation and Denies itchy eyes ENT Ears, Nose, Mouth, and Throat: Denies epistaxis, Denies facial pain, Denies lip swelling and Denies throat swelling *Cardiovascular Cardiovascular: Reports dyspnea and Reports dyspnea on exertion *Respiratory Respiratory: Denies change in phlegm color, Reports chest congestion, Reports cough, Reports dyspnea, Reports dyspnea on exertion, Denies excessive phlegm production, Denies hemoptysis, Denies pain on inspiration, Denies pain with cough and Denies wheezing *Gastrointestinal Gastrointestinal: Reports abdominal pain, Denies belching and Denies cramping *Musculoskeletal Musculoskeletal: Reports back pain, Reports myalgias and Reports other (No small joint swelling or Pain) Comments: Bilateral upper extremity tremors Psychiatric Psychiatric: Denies homicidal ideation and Denies suicidal ideation Endocrine Endocrine: Reports fatigue and Denies heat intolerance Hematologic/Lymphatic Hematologic/Lymphatic: Denies easy bleeding and Denies lymphadenopathy Allergic/Immunologic Allergic/Immunologic: Denies itchy eyes, Denies lip swelling, Denies throat swelling and Denies wheezing Pulmonology Exam Inpatient Vital signs and Labs for Last 24 Hours: Temp Pulse Resp BP Pulse Ox O2 Del Method O2 Flow Rate 97.5 F L 84 20 127/61 95 Nasal Cannula 3 07/13/24 08:00 07/13/24 08:16 07/13/24 08:16 07/13/24 08:16 07/13/24 08:16 07/13/24 08:16 07/13/24 08:16 Laboratory Results - last 24 hr 07/12/24 04:39: Urine Color Dark yellow, Urine Appearance Slightly cloudy, Urine pH 6.0, Ur Specific [place] <= 1.005, Urine Glucose (UA) Negative, Urine Ketones Negative, Urine Bilirubin Negative, Urine Urobilinogen 0.2, Urine RBC 50-100, Urine WBC 5-10, Ur Squamous Epith Cells Occasional, Urine Bacteria Trace 07/12/24 21:00: WBC 12.3 H, RBC 3.60 L, Hgb 10.3 L, Hct 32.7 L, MCV 90.8, MCH 28.6, MCHC 31.5 L, RDW 14.1, Plt Count 129 L, MPV 10.9 H, Neut % (Auto) 95.9 H, Lymph % (Auto) 2.2 L, [place] % (Auto) 0.3 L, Eos % (Auto) 0.0 L, Baso % (Auto) 0.1, Neut # (Auto) 11.8 H, Lymph # (Auto) 0.3 L, [place] # (Auto) 0.0 L, Eos # (Auto) 0.0, Baso # (Auto) 0.0, Total Counted 100, Neutrophils % (Manual) 96 H, L ymphocytes % (Manual) 4 L, Platelet Estimate Slight decrease, RBC Morphology Normal, APTT > 139.0 H*, Sodium 137, Potassium 4.3, Chloride 101, Carbon Dioxide 24, Anion Gap 16.3 H, BUN 17, Creatinine 0.80, Estimated Creat Clear 61, Estimated GFR 69, Est GFR ( Amer) 83, Glucose 225 H, Lactate 3.8 H, C alcium 8.3 L, Magnesium 1.6, Total Bilirubin 0.5, AST 66 H, ALT 32, Alkaline Phosphatase 52, Troponin I 0.31 H, Total Protein 6.4, Albumin 3.6, Globulin 2.8, Albumin/Globulin Ratio 1.3 07/12/24 21:08: Chlamy pneumoniae PCR Not detected, Adenovirus (PCR) Not detected, B. pertussis DNA (PCR) Not detected, Coronavirus OC43 (PCR) Not detected, Coronavirus HKU1 (PCR) Not detected, Coronavirus 229E (PCR) Not detected, SARS-CoV-2 (PCR) Not detected, Coronavirus NL63 (PCR) Not detected, Human Metapneumovir PCR Not detected, Influenza A (H1) PCR Not detected, Influ A (H1N1/09) PCR Not detected, Influenza A (H3) PCR Not detected, Influenza Type A (PCR) Not detected, Influenza Type B (PCR) Not detected, M. pneumoniae (PCR) Not detected, Parainfluenza 1 (PCR) Not detected, Parainfluenza 2 (PCR) Not detected, Parainfluenza 3 (PCR) Not detected, Parainfluenza 4 (PCR) Not detected, RSV (PCR) Not detected, Entero/Rhino (PCR) Not detected 07/13/24 02:05: APTT > 139.0 H*, Lactate 2.7 H 07/13/24 03:58: APTT > 139.0 H* 07/13/24 05:16: APTT > 139.0 H* 07/13/24 06:59: APTT 124.6 H*, Hemoglobin A1c 5.7, Lactate 2.4 H I & O for Labs for Last 24 Hours: Intake & Output 07/10/24 07/11/24 07/12/24 07/13/24 23:59 23:59 23:59 23:59 Intake Total 644.339 / 644.339 Output Total 1300 / 1300 Balance -655.661 / -655.661 Weight 194 lb 0.108 oz 190 lb 14.725 oz Constitutional: Present moderate distress Head: Present normocephalic and atraumatic ENT: Present normal exam, normal oropharynx and mucous membranes moist Neck: Present normal inspection and full ROM Respiratory: Present respiratory distress, rhonchi, diminished air movement and able to speak in complete sentences; Absent wheezes Cardiac: Present S1/S2, Tachycardia and radial pulses present GI: Present soft and distention; Absent tenderness or guarding Rectal (female): Present deferred (female): Present deferred Skin: Present intact; Absent cyanosis or jaundice Neuro: Present alert, awake and oriented x 3 Extremities: Present normal inspection; Absent clubbing or cyanosis Psychiatric: Present normal affect and cooperative Meds Home Medications and Allergies Home Medications ?Medication ?Instructions ?Recorded ?Confirmed ?Type anastrozole 1 mg tablet 1 mg PO DAILY 07/12/24 07/12/24 History apixaban 5 mg tablet 5 mg PO DAILY 07/12/24 07/13/24 History escitalopram oxalate 20 mg tablet 20 mg PO DAILY 07/12/24 07/12/24 History famotidine 20 mg tablet 20 mg PO BID 07/12/24 07/12/24 History fluticasone furoate 100 100 mcg inhalation DAILY 07/12/24 07/12/24 History mcg/actuation blister powder for inhalation (Arnuity Ellipta) furosemide 20 mg tablet 20 mg PO DAILY 07/12/24 07/13/24 History hydralazine 25 mg tablet 25 mg PO BID 07/12/24 07/13/24 History metoprolol succinate 25 mg 25 mg PO DAILY 07/12/24 07/12/24 History tablet,extended release 24 hr multivitamin with iron-mineral 1 tab PO DAILY 07/12/24 07/12/24 History nicotine 14 mg/24 hr daily 14 mg transdermal DAILY 07/12/24 07/12/24 History transdermal patch nitroglycerin 0.4 mg sublingual 0.4 mg sublingual NEEDED PRN 07/12/24 07/12/24 History tablet Chest Pain rosuvastatin 40 mg tablet 40 mg PO HS 07/12/24 07/13/24 History vibegron 75 mg tablet 75 mg PO DAILY 07/12/24 07/12/24 History losartan 100 mg tablet 100 mg PO DAILY 07/13/24 07/13/24 History New Prescriptions to Start Prescriptions: Allergies Allergy/AdvReac Type Severity Reaction Status Date / Time bacitracin (From Neosporin Allergy Unknown Unknown Verified 07/13/24 07:49 Plus PainRelief(demond)) allergy reaction neomycin (From Neosporin Allergy Unknown Unknown Verified 07/13/24 07:49 Plus PainRelief(demond)) allergy reaction Penicillins Allergy Unknown Unknown Verified 07/13/24 07:49 allergy reaction polymyxin B (From Neosporin Allergy Unknown Unknown Verified 07/13/24 07:49 Plus PainRelief(demond)) allergy reaction pramoxine (From Neosporin Allergy Unknown Unknown Verified 07/13/24 07:49 Plus PainRelief(demond)) allergy reaction Results Laboratory Findings 07/13/24 09:16 07/13/24 09:16 Abnormal lab findings: Abnormal Labs 07/12/24 07/13/24 07/13/24 21:00 02:05 03:58 WBC 12.3 H RBC 3.60 L Hgb 10.3 L Hct 32.7 L MCHC 31.5 L Plt Count 129 L MPV 10.9 H Neut % (Auto) 95.9 H Lymph % (Auto) 2.2 L [place] % (Auto) 0.3 L Eos % (Auto) 0.0 L Neut # (Auto) 11.8 H Lymph # (Auto) 0.3 L [place] # (Auto) 0.0 L Neutrophils % (Manual) 96 H Lymphocytes % (Manual) 4 L APTT > 139.0 H* > 139.0 H* > 139.0 H* Anion Gap 16.3 H Glucose 225 H Lactate 3.8 H 2.7 H Calcium 8.3 L AST 66 H Troponin I 0.31 H 07/13/24 07/13/24 05:16 06:59 WBC RBC Hgb Hct MCHC Plt Count MPV Neut % (Auto) Lymph % (Auto) [place] % (Auto) Eos % (Auto) Neut # (Auto) Lymph # (Auto) [place] # (Auto) Neutrophils % (Manual) Lymphocytes % (Manual) APTT > 139.0 H* 124.6 H* Anion Gap Glucose Lactate 2.4 H Calcium AST Troponin I Assessment and Plan *Assessment and plan (1) Pneumonia: Status: Acute Category: Medical Code(s): J18.9 - Pneumonia, unspecified organism (2) Acute respiratory failure with hypoxia: Status: Acute Category: Medical Code(s): J96.01 - Acute respiratory failure with hypoxia (3) Pulmonary emphysema: Status: Acute Category: Medical Code(s): J43.9 - Emphysema, unspecified (4) Pleural effusion, left: Status: Acute Category: Medical Code(s): J90 - Pleural effusion, not elsewhere classified Plan Ms. Arellano is a 83-year-old female current smoker greater than [id number] smoking history, COPD at baseline Trelegy 100 inhaler not using any oxygen supplementation with reported history of hypertension atrial fibrillation on Eliquis hyperlipidemia COPD, CVA history of bladder tumor status postresection on Jul 10 at [facility] presented with worsening respiratory distress cough fever nausea vomiting and pulmonary was called for further evaluation and management. Patient upon admission found to be in A-fib RVR recently, transition amiodarone with improved heart rate also on her Symbicort meds from 15 L room air. CTA upon admission no evidence of pulmonary embolism. Bilateral lower lobe consolidative changes right greater than left along with small left pleural effusion. Afebrile. Hemodynamically stable. Mild neutrophilic predominant leukocytosis. Comprehensive respiratory viral PCR panel negative. Currently receiving ceftriaxone and doxycycline along with Trelegy inhaler and nebulization therapies. Patient surgery as outpatient, discharged home same day. Plan: Continue ceftriaxone azithromycin pending culture results. Follow-up with nasal MRSA PCR and sputum cltures Incentive spirometry and flutter valve Trelegy 100 inhaler along with DuoNebs 4 times daily as needed Continue oxygen supplementation to maintain O2 saturation goal of 90% and above. Weaned to 1 L with saturations maintaining at 95% and above. Continue to wean as tolerated.
[2024-07-13 09:35] LABS: Albumin Level 3.4 g/dl (3.5-5.0); Chloride 103 mmol/L (98-107); Potassium 3.6 mmoL/L (3.5-5.1); Sodium 136 mmol/L (136-145)
[2024-07-13 09:37] LABS: Basophils % 0.1 % (0.1-2.0); Hematocrit 29.9 % (37.0-47.0); Hemoglobin 9.6 g/dL (12.2-16.2); Lymphocytes # 0.3 K/mm3 (0.7-4.5); Lymphocytes % 3.2 % (10-50); Mean Corpuscular HGB Conc 32.1 g/dL (31.8-35.4); Mean Corpuscular Hemoglobin 28.7 pg (27.0-31.2); Mean Corpuscular Volume 89.3 fl (81-99); Mean Platelet Volume 10.9 fl (7.4-10.4); Monocytes # 0.1 K/mm3 (0.1-1.0); Monocytes % 1.1 % (1.7-9.3); Neutrophils % 93.6 % (37.0-80.0); Platelet Count 127 K/mm3 (142-424); Red Blood Count 3.35 M/mm3 (4.20-5.40); Red Cell Distribution Width 14.1 % (11.5-17.5); White Blood Count 10.6 K/mm3 (4.8-10.8)
[2024-07-13 09:38] LABS: Alanine Aminotransferase 28 U/L (12-78); Albumin/Globulin Ratio 1.2 (1.1-1.8); Alkaline Phosphatase 53 U/L (38-126); Anion Gap 12.6 mEq/L (5-15); Aspartate Amino Transferase 56 U/L (14-36); Bilirubin,Total 0.2 mg/dl (0.2-1.3); Blood Urea Nitrogen 20 mg/dl (7-17); Calcium 8.1 mg/dl (8.4-10.2); Carbon Dioxide 24 mmol/L (22.0-30.0); Creatinine Clearance Estimated 60 mL/min (50-200); Estimated Glomerular Filt Rate 69 ml/min (>60); GFR (African American) 83 ML/MIN (>60); Globulin 2.9 g/dL (1.3-3.2); Glucose 220 mg/dl (74-100); Magnesium 1.7 mg/dl (1.6-2.3); Total Protein,Serum 6.3 g/dl (6.3-8.2)
[2024-07-13] MEDS: DOXYCYCLINE HYCLATE 100 MG in 0.9 % SODIUM CHLORIDE 250 ML 166.667 MG IV ×2 (09:41→21:39)
[2024-07-13 09:48] LABS: MANUAL DIFFERENTIAL MANUAL DIFFERENTIAL (MANUAL DIFF)
[2024-07-13 10:00] LABS: PTT Heparin (inpatient only) 65.4 Seconds (50-75)
[2024-07-13 10:50] LABS: Lymphocytes % 3 % (10-50); Monocytes % 2 % (2-9); Neutrophils % 95 % (42-76); Platelet Estimate Normal; RBC Morphology Normal; Total Cells Counted 100
--- NOTE | 2024-07-13 11:27 | PC.NURSE ---
OT at bedside.
[2024-07-13] MEDS: APIXABAN 5MG TABLET 5 MG PO ×2 (11:43→21:39)
--- NOTE | 2024-07-13 11:51 | PC.NURSE ---
spoke with Dr. Machado's office who performed the patient's surgery. They reported that if the hospitalist is willing to they would like us to remove the pts catheter for a urinary trial. Hospitalist notified and indwelling catheter discontinued at this time. pt tolerated well and placed on a purwick to monitor output for urinary retention
--- NOTE | 2024-07-13 11:55 | HMH.OTEV ---
OT Inpatient Evaluation Rehab OT IP Evaluation Start: 07/13/24 11:02 Freq: ONCE Status: Active Protocol: Document 07/13/24 11:49 [facility] (Rec: 07/13/24 11:55 [facility] [id number]) Rehab OT IP Assessment Subjective History Pt oriented x 3 on arrival. Pt agreeable to engage in therapy evaluation. Pt admitted on 07/12/24 due to A- fib and PNA. History and Physical: This is an 83-year-old female with a past medical history of hypertension, atrial fibrillation on Eliquis, hyperlipidemia, prior cerebrovascular accident without residual deficit, COPD , tobacco dependence, and recently diagnosed malignant bladder tumor status post resection at the [facility] on July 10, who originally presented to [facility] via EMS with fever, cough, nausea , and vomiting that began the previous evening. She reports that she underwent bladder resection under general anesthesia with an indwelling urinary catheter placement on July 10. She felt well initially but developed nausea after supper on July 11, which progressively worsened throughout the day. She began to feel increasingly unwell and contacted EMS due to persistent symptoms of fever, cough, and generalized malaise . Upon arrival to the [facility] emergency department, her vital signs showed blood pressure of 148/67, heart rate 96, respiratory rate 20, temperature 100.3?F, and oxygen saturation of 95% on room air Subjective I don't want to ask anyone for help. Pt reports prior to being in the hospital she lived at home alone. Pt lives in a 1 story home with 1 VLAD (railing with the step). Pt claims normally she is independent with all ADLs and IADLs. She has a walker at home, but claims she does not require it at all times. Pt also still drives. She is not on oxygen at home. Objective Patient Orientation Person,Place,Birthday Right Upper Extremity Gross ROM WFL Left Upper Extremity Gross ROM WFL Bed Mobility bed mobility-scooting,bed mobility - supine/sit Assist Level Minimal x 1 (25% assist) Transfer Training Sit/Stand Transfer Assist Level Minimal x 2 (25% assist) Lower Body Dressing Ability Standby Assistance Rehab OT IP prob,goals,plan Problems Date of Evaluation: 07/13/24 OT IP Problems Bed Mobility,Transfers,Balance ,Self care,Safety Rehab Potential Rehab Potential Good Equipment Needs Assistive Devices Rolling / Wheeled Walker Plan OT intervention Plan Bed Mobility,Transfers,Balance ,Self care,Safety,Therapeutic Exercise OT Plan Frequency Daily Duration LOS Discharge Goals Bed Mobility Ability Standby Assistance Sit to Stand Chair Transfer Ability Minimal x 1 (25% assist) Chair Transfer Ability Minimal x 1 (25% assist) Chair Transfer Technique Sit to/from Ambulatory Chair Transfer Assistive Devices Rolling Walker Feeding Ability Assist with Tray Set Up Lower Body Dressing Ability Standby Assistance Upper Body Dressing Ability Standby Assistance Bathing Ability Minimal Assistance Performing Toilet Hygiene Ability Minimal Assistance Overall Commode/Toilet Transfer Ability Minimal Assistance Commode/Toilet Transfer Technique Sit to/from Ambulatory Commode/Toilet Transfer Assistive Grab Bars Devices Decrease in Endurance Yes Discharge Plan OT Discharge Plan Pt will continue to be seen for OT services while at [facility]. Upon evaluation, pt presents below baseline with functional transfers and ADL independence. At this time, pt would benefit most from short term rehab at SNF following discharge from hospital. Continued skilled therapy is important in order for patient to improve strength, safety, endurance, ADL independence, and functional transfers to reach PLOF. Eval Complexity Eval Charge Codes 65186 - Moderate Complexity PHYSICIAN CERTIFICATION: I certify the specified therapy services for Violet Arellano are required, authorized, and reviewed every 30 days.
--- NOTE | 2024-07-13 12:32 | HMH.PTEV ---
Physical Therapy Evaluation Rehab PT IP Evaluation Start: 07/13/24 11:02 Freq: ONCE Status: Active Protocol: Document 07/13/24 12:25 [facility] (Rec: 07/13/24 12:31 [facility] [id number]) Subjective/History History History Pt oriented x 3 on arrival. Pt agreeable to engage in therapy evaluation. Pt admitted on 07/12/24 due to A- fib and PNA. History and Physical: This is an 83-year-old female with a past medical history of hypertension, atrial fibrillation on Eliquis, hyperlipidemia, prior cerebrovascular accident without residual deficit, COPD , tobacco dependence, and recently diagnosed malignant bladder tumor status post resection at the [facility] on July 10, who originally presented to [facility] via EMS with fever, cough, nausea , and vomiting that began the previous evening. She reports that she underwent bladder resection under general anesthesia with an indwelling urinary catheter placement on July 10. She felt well initially but developed nausea after supper on July 11, which progressively worsened throughout the day. She began to feel increasingly unwell and contacted EMS due to persistent symptoms of fever, cough, and generalized malaise . Upon arrival to the [facility] emergency department, her vital signs showed blood pressure of 148/67, heart rate 96, respiratory rate 20, temperature 100.3?F, and oxygen saturation of 95% on room air Subjective Subjective Pt agreeable to therapy on arrival. Reports that she lives in a 1 story house with VLAD. Reports that she lives at home and is not going to ask her sons to come help her. She reports that prior to admission to the hospital, she was completely independent with all ADLs, she has a walker but seldomly used it, continues to drive and is not on oxygen at home. New diagnosis of cancer in past 12 No months? Rehab PT IP Eval Objective Appearance Patient Behavior Appropriate,Patient Baseline Patient Orientation Person,Place,Time Difficulty following instructions none Speech Pattern Clear,Patient Baseline Ambulation Patient Able to Ambulate Yes Ambulation Observation IP General Gait Pattern Observation Shuffling Step Ambulation Distance (feet) 10 Ambulation Assistive Device None Ambulation Ability Moderate x 2 (50% assist) Balance Ability to Arise Able, uses arms to help Sitting Balance Steady, safe Standing Balance Steady, wide stance Dynamic Sitting Balance Ability Poor Dynamic Standing Balance Ability Poor Transfers Bed Transfer Ability Minimal x 2 (25% assist) Chair Transfer Ability Moderate x 2 (50% assist) Sit to Stand Bed Transfer Ability Moderate x 2 (50% assist) Sit to Stand Chair Transfer Ability Moderate x 2 (50% assist) Rehab PT IP prob,goals,plan Problems Date of Evaluation: 07/13/24 PT IP Problems Bed Mobility,Transfers,Gait, Balance,Self care,Safety Rehab Potential Rehab Potential Good Equipment Needs Assistive Devices Rolling / Wheeled Walker Plan PT Intervention Plan Bed Mobility,Transfers,Gait, Balance,Self care,Safety, Therapeutic Exercise PT Plan Frequency BID Duration LOS Discharge Goals Bed Transfer Ability Supervision/Stand by Sit to Stand Chair Transfer Ability Supervision/Stand by Ambulation Assistive Device None Ambulation Distance (feet) 25 Discharge Plan PT Discharge Plan PT is recommending placement for further therapy upon discharge from the hospital. The pt does not prevent safely for discharge to home, due to being a significant fall risk and she does not have adequate assistance to transfer to home. Skilled PT is indicated for this pt during her acute stay to prevent further injury and help pt return to prior baseline. Eval Complexity Eval Charge Codes 04963 - Moderate Complexity PHYSICIAN CERTIFICATION: I certify the specified therapy services for Violet Arellano are required, authorized, and reviewed every 30 days.
--- NOTE | 2024-07-13 12:32 | EXP.CARD.CON ---
History of Present Illness History of Present Illness Consult date: 07/13/24 Requesting physician: Josiah Hernandez Consult reason: atrial fibrillation Chief complaint: fever, NV a-fib History of present illness: 83 yo WF with hx of PAF on Eliquis and Metoprolol - typically follows with Cardiology in [place]. She also has hx of CVA, COPD, TOb, and Htn. Patient had recent dx of malignant bladder cancer and underwent bladder resection and insertion of indwelling cath at on 07/10. She presented to [facility] ER via EMS yesterday with temp 100.3, cough, and N/V. Workup there showed left basilar infiltrates, UA showed nitrites and leuk. She was given a duo-neb and soon after went into A-fib RVR with rates up to 140s. Trop 0.45, WBC 13.6, lactic acid 1.4, ProCal 0.56. A-fib rate remained high so pt was transferred here for CV care. On arrival here she was on 15L non-rebreather, O2 at 92% Dilat at 15mg/hr and HR was still 130-140 with BP 90/55. CTA showed no PE but dense bilat consolidations. Started Amio which converted her to SR and she stabilized quickly after that. I am seeing patient next morning in ICU. She remains in SR and denies CP. She is upright eating breakfast in bed in no distress. She has severe cough and crackles in both lung bases. [facility] Disclaimer: The information contained in this section may have been updated after the patient was seen, as this information can be updated by other users. Medical History Pleural effusion, left Pulmonary emphysema Acute respiratory failure with hypoxia Bladder cancer Breast cancer History of stroke Rheumatoid arthritis Atrial fibrillation Hypertension COPD (chronic obstructive pulmonary disease) Surgical History H/O transurethral resection of bladder tumor (TURBT) Family History Other No significant family history Social History Smoking Status: Current every day smoker alcohol intake: never current occupational status: retired Travel in the last 8 weeks: Inside the [place] Have you lived/traveled outside US in past 30 days?: No Contact w/someone who lives/traveled outside US past 30 days?: No Exposure to someone with infectious disease in past 14 days?: No Do you have a fever (greater than 100.4 F or 38 C)?: No Have you tested positive for COVID-19: No Exposed to someone with COVID-19 in past 14 days?: No Do you have a sore throat?: No Do you have a cough?: No Do you have any weakness?: No Do you have any diarrhea?: No Are you experiencing any unusual bleeding?: No Do you have any muscle aches/pain?: No Do you have any abdominal pain?: No Are you experiencing loss of taste or smell?: No Review of Systems Constitutional Constitutional: Denies fatigue and Denies weakness Eyes Eyes: Denies loss of vision ENT Ears, Nose, Mouth, and Throat: Denies hearing loss and Denies vertigo *Cardiovascular Cardiovascular: Denies chest pain, Reports dyspnea and Denies syncope *Respiratory Respiratory: Reports cough and Reports dyspnea *Gastrointestinal Gastrointestinal: Denies change in stool character, Denies nausea and Denies vomiting *Musculoskeletal Musculoskeletal: Denies muscle weakness Integumentary/Breasts Skin/Breast: Denies changing lesions *Neurologic Neurologic: Denies loss of vision, Denies syncope, Denies vertigo and Denies weakness Endocrine Endocrine: Denies fatigue Exam Data for Last 24 hours Vital signs and Labs for Last 24 Hours: Temp Pulse Resp BP Pulse Ox O2 Del Method O2 Flow Rate 98.0 F 89 19 151/64 H 95 Nasal Cannula 1 07/13/24 12:05 07/13/24 12:05 07/13/24 12:05 07/13/24 12:05 07/13/24 12:05 07/13/24 12:05 07/13/24 12:05 Laboratory Results - last 24 hr 07/12/24 04:39: Urine Color Dark yellow, Urine Appearance Slightly cloudy, Urine pH 6.0, Ur Specific [place] <= 1.005, Urine Glucose (UA) Negative, Urine Ketones Negative, Urine Bilirubin Negative, Urine Urobilinogen 0.2, Urine RBC 50-100, Urine WBC 5-10, Ur Squamous Epith Cells Occasional, Urine Bacteria Trace 07/12/24 21:00: WBC 12.3 H, RBC 3.60 L, Hgb 10.3 L, Hct 32.7 L, MCV 90.8, MCH 28.6, MCHC 31.5 L, RDW 14.1, Plt Count 129 L, MPV 10.9 H, Neut % (Auto) 95.9 H, Lymph % (Auto) 2.2 L, [place] % (Auto) 0.3 L, Eos % (Auto) 0.0 L, Baso % (Auto) 0.1, Neut # (Auto) 11.8 H, Lymph # (Auto) 0.3 L, [place] # (Auto) 0.0 L, Eos # (Auto) 0.0, Baso # (Auto) 0.0, Total Counted 100, Neutrophils % (Manual) 96 H, Lymphocytes % (Manual) 4 L, Platelet Estimate Slight decrease, RBC Morphology Normal, APTT > 139.0 H*, Sodium 137, Potassium 4.3, Chloride 101, Carbon Dioxide 24, Anion Gap 16.3 H, BUN 17, Creatinine 0.80, Estimated Creat Clear 61, Estimated GFR 69, Est GFR ( Amer) 83, Glucose 225 H, Lactate 3.8 H, Calcium 8.3 L, Magnesium 1.6, Total Bilirubin 0.5, AST 66 H, ALT 32, Alkaline Phosphatase 52, Troponin I 0.31 H, Total Protein 6.4, Albumin 3.6, Globulin 2.8, Albumin/Globulin Ratio 1.3 07/12/24 21:08: Chlamy pneumoniae PCR Not detected, Adenovirus (PCR) Not detected, B. pertussis DNA (PCR) Not detected, Coronavirus OC43 (PCR) Not detected, Coronavirus HKU1 (PCR) Not detected, Coronavirus 229E (PCR) Not detected, SARS-CoV-2 (PCR) Not detected, Coronavirus NL63 (PCR) Not detected, Human Metapneumovir PCR Not detected, Influenza A (H1) PCR Not detected, Influ A (H1N1/09) PCR Not detected, Influenza A (H3) PCR Not detected, Influenza Type A (PCR) Not detected, Influenza Type B (PCR) Not detected, M. pneumoniae (PCR) Not detected, Parainfluenza 1 (PCR) Not detected, Parainfluenza 2 (PCR) Not detected, Parainfluenza 3 (PCR) Not detected, Parainfluenza 4 (PCR) Not detected, RSV (PCR) Not detected, Entero/Rhino (PCR) Not detected 07/13/24 02:05: APTT > 139.0 H*, Lactate 2.7 H 07/13/24 03:58: APTT > 139.0 H* 07/13/24 05:16: APTT > 139.0 H* 07/13/24 06:59: APTT 124.6 H*, Hemoglobin A1c 5.7, Lactate 2.4 H 07/13/24 09:16: WBC 10.6, RBC 3.35 L, Hgb 9.6 L, Hct 29.9 L, MCV 89.3, MCH 28.7, MCHC 32.1, RDW 14.1, Plt Count 127 L, MPV 10.9 H, Neut % (Auto) 93.6 H, Lymph % (Auto) 3.2 L, [place] % (Auto) 1.1 L, Eos % (Auto) 0.0 L, Baso % (Auto) 0.1, Neut # (Auto) 10.0 H, Lymph # (Auto) 0.3 L, [place] # (Auto) 0.1, Eos # (Auto) 0.0, Baso # (Auto) 0.0, Total Counted 100, Neutrophils % (Manual) 95 H, Lymphocytes % (Manual) 3 L, Monocytes % (Manual) 2, Platelet Estimate Normal, RBC Morphology Normal, APTT 65.4, Sodium 136, Potassium 3.6, Chloride 103, Carbon Dioxide 24, Anion Gap 12.6, BUN 20 H, Creatinine 0.80, Estimated Creat Clear 60, Estimated GFR 69, Est GFR ( Amer) 83, Glucose 220 H, Calcium 8.1 L, Magnesium 1.7, Total Bilirubin 0.2, AST 56 H, ALT 28, Alkaline Phosphatase 53, Total Protein 6.3, Albumin 3.4 L, Globulin 2.9, Albumin/Globulin Ratio 1.2 I & O for Last 24 hours: Intake & Output 07/10/24 07/11/24 07/12/24 07/13/24 23:59 23:59 23:59 23:59 Intake Total 644.339 / 644.339 Output Total 1300 / 1300 Balance -655.661 / -655.661 Weight 194 lb 0.108 oz 190 lb 14.725 oz *Routine Respiratory Exam Respiratory: Present crackles Comments: cough with deep breathing Meds Home Medications and Allergies Home Medications ?Medication ?Instructions ?Recorded ?Confirmed ?Type anastrozole 1 mg tablet 1 mg PO DAILY 07/12/24 07/12/24 History apixaban 5 mg tablet 5 mg PO BID 07/12/24 07/13/24 History escitalopram oxalate 20 mg tablet 20 mg PO DAILY 07/12/24 07/12/24 History famotidine 20 mg tablet 20 mg PO BID 07/12/24 07/12/24 History fluticasone furoate 100 100 mcg inhalation DAILY 07/12/24 07/12/24 History mcg/actuation blister powder for inhalation (Arnuity Ellipta) furosemide 20 mg tablet 20 mg PO DAILY 07/12/24 07/13/24 History hydralazine 25 mg tablet 25 mg PO BID 07/12/24 07/13/24 History metoprolol succinate 25 mg 25 mg PO DAILY 07/12/24 07/12/24 History tablet,extended release 24 hr multivitamin with iron-mineral 1 tab PO DAILY 07/12/24 07/12/24 History nicotine 14 mg/24 hr daily 14 mg transdermal DAILY 07/12/24 07/12/24 History transdermal patch nitroglycerin 0.4 mg sublingual 0.4 mg sublingual NEEDED PRN 07/12/24 07/12/24 History tablet Chest Pain rosuvastatin 40 mg tablet 40 mg PO HS 07/12/24 07/13/24 History vibegron 75 mg tablet 75 mg PO DAILY 07/12/24 07/12/24 History losartan 100 mg tablet 100 mg PO DAILY 07/13/24 07/13/24 History New Prescriptions to Start Prescriptions: Allergies Allergy/AdvReac Type Severity Reaction Status Date / Time bacitracin (From Neosporin Allergy Unknown Unknown Verified 07/13/24 07:49 Plus PainRelief(demond)) allergy reaction neomycin (From Neosporin Allergy Unknown Unknown Verified 07/13/24 07:49 Plus PainRelief(demond)) allergy reaction Penicillins Allergy Unknown Unknown Verified 07/13/24 07:49 allergy reaction polymyxin B (From Neosporin Allergy Unknown Unknown Verified 07/13/24 07:49 Plus PainRelief(demond)) allergy reaction pramoxine (From Neosporin Allergy Unknown Unknown Verified 07/13/24 07:49 Plus PainRelief(demond)) allergy reaction Assessment and Plan *Assessment and plan (1) Atrial fibrillation with rapid ventricular response: Status: Acute Category: Medical Code(s): I48.91 - Unspecified atrial fibrillation (2) Pneumonia: Status: Acute Category: Medical Code(s): J18.9 - Pneumonia, unspecified organism (3) Elevated lactic acid level: Status: Acute Category: Medical Code(s): R79.89 - Other specified abnormal findings of blood chemistry Plan A-fib with RVR - known A-fib, exacerbated in setting of pneumonia - resume home dose Eliquis and Metoprolol - transition Amio from IV to PO. Discussed long wall mining machine helper risks with patient and she is agreeable to proceed for now. Can discuss alternative strategies with her usual Semiconductor Wafers Tester outpatient. - check 2D ECHO Acute Hypoxic Repiratory Failure - secondary to bilateral pneumonia - possible HCAP - improving on antibiotics and with a-fib conversion to SR Malignant Bladder Cancer - s/p resection and placement of indwelling cath 07/10 at - hx of 2 other cancer dx - details unclear at this time. Elevated Trop - likely demand ischemia from A-fib RVR and resp failure - pt denies angina - check 2D ECHO - consider ischemic workup - inpatient vs outpatient CV stable/improving. Further plans pending ECHO results.
--- NOTE | 2024-07-13 13:39 | SW/DCPLANNER ---
Addendum entered by Lucila Redmond 07/15/24 07:29: This patient has been approved SNF level of care. Addendum entered by [facility] 07/14/24 12:46: Arron viramontes/ Cam Sullivan stated that precert will be started today. Addendum entered by [facility] 07/14/24 11:23: Arron viramontes/ Cam Sullivan stated that patient has been approved for their facility. Per Arron he is waiting on approval from [facility] to start precert. I have updated Arron that patient is medically stable for discharge today. Addendum entered by [facility] 07/13/24 15:23: Arron viramontes/ Cam Sullivan will be at bedside to evaluate patient today. Original Note: I spoke w/ this patient regarding plans once medically stable for discharge. PT/OT evaluated patient and recommended SNF level of care at time of discharge. Patient stated that she resides at home alone and is agreeable to short term placement. Patient is agreeable to the following facilities: [facility] and [facility]. I will fax patient information to all facilities and continue to follow up. Discharge date is unknown at this time. I will continue to follow up.
--- NOTE | 2024-07-13 14:12 | ECG_ITS ---
APPROVED REPORT Exam: Resting ECG HR:99 bpm ECG Measurements Heart Rate 99 AXES MA 161 P 201 QRSd 154 QRS -78 QT 447 T 81 QTc 503 Conclusion ELECTRONIC VENTRICULAR PACEMAKER ABNORMAL RHYTHM ECG INTERPRETATION BASED ON A DEFAULT AGE OF 42 YEARS UNCONFIRMED REPORT Electronically signed by : Urbano Whitaker MD 07/14/2024 15:33:12
[2024-07-13] MEDS: MULTIVITAMIN TABLET 1 EACH PO (17:35)
[2024-07-13] MEDS: ATORVASTATIN 40MG TABLET 40 MG PO (20:07)
[2024-07-13] MEDS: AMIODARONE 200MG TABLET 400 MG PO (20:07)
[2024-07-14] VITALS (15 sets, daily range): BP systolic 156–189; BP diastolic 68–91; PULSE 70–110; RESP 17–21; TEMP 36.6–36.9; O2SAT 91–98; BMI 29.0
[2024-07-14] MEDS: IPRATROPIUM BROMIDE 0.5 MG/2.5ML SOLUTION IH ×5 (00:14→23:09)
[2024-07-14] MEDS: LEVALBUTEROL 1.25MG/3ML NEB 1.25 MG IH ×5 (00:14→23:09)
[2024-07-14] MEDS: GUAIFENESIN/DEXTROMETHORPHAN 200MG/20MG 10ML UDC 10 ML PO ×2 (01:14→20:30)
[2024-07-14 02:33] LABS: POC Glucose,Bedside 293 (70-110)
[2024-07-14 02:33] LABS: POC Glucose,Bedside 169 (70-110)
[2024-07-14 02:33] LABS: POC Glucose,Bedside 311 (70-110)
[2024-07-14 02:33] LABS: POC Glucose,Bedside 153 (70-110)
[2024-07-14 06:31] LABS: Basophils % 0.1 % (0.1-2.0); Eosinophils % 0.1 % (0.1-12.0); Hemoglobin 9.2 g/dL (12.2-16.2); Lymphocytes # 0.9 K/mm3 (0.7-4.5); Lymphocytes % 7.9 % (10-50); Mean Corpuscular HGB Conc 31.7 g/dL (31.8-35.4); Mean Corpuscular Hemoglobin 28.3 pg (27.0-31.2); Mean Corpuscular Volume 89.2 fl (81-99); Monocytes # 0.4 K/mm3 (0.1-1.0); Monocytes % 3.5 % (1.7-9.3); Neutrophils % 87.5 % (37.0-80.0); Platelet Count 145 K/mm3 (142-424); Red Blood Count 3.25 M/mm3 (4.20-5.40); Red Cell Distribution Width 14.2 % (11.5-17.5); White Blood Count 11.4 K/mm3 (4.8-10.8)
[2024-07-14 06:35] LABS: Albumin Level 3.2 g/dl (3.5-5.0); Chloride 109 mmol/L (98-107); Sodium 141 mmol/L (136-145)
[2024-07-14 06:36] LABS: Potassium 3.8 mmoL/L (3.5-5.1)
[2024-07-14 06:38] LABS: Alanine Aminotransferase 25 U/L (12-78); Albumin/Globulin Ratio 1.1 (1.1-1.8); Alkaline Phosphatase 57 U/L (38-126); Anion Gap 10.8 mEq/L (5-15); Aspartate Amino Transferase 52 U/L (14-36); Blood Urea Nitrogen 30 mg/dl (7-17); Calcium 8.2 mg/dl (8.4-10.2); Carbon Dioxide 25 mmol/L (22.0-30.0); Creatinine Clearance Estimated 58 mL/min (50-200); Estimated Glomerular Filt Rate 60 ml/min (>60); GFR (African American) 73 ML/MIN (>60); Globulin 2.9 g/dL (1.3-3.2); Glucose 105 mg/dl (74-100); Magnesium 2.1 mg/dl (1.6-2.3); Total Protein,Serum 6.1 g/dl (6.3-8.2)
[2024-07-14 06:53] LABS: Bilirubin,Total 0.1 mg/dl (0.2-1.3)
[2024-07-14 08:52] LABS: NT Pro Brain Natriuretic Pep. 3920 pg/mL (0-450)
[2024-07-14] MEDS: CEFTRIAXONE 1 GM 1 GM in 0.9 % SODIUM CHLORIDE 50 ML IV (09:03)
[2024-07-14] MEDS: HYDRALAZINE HCL 25MG TABLET 25 MG PO ×2 (09:03→14:10)
[2024-07-14] MEDS: AMIODARONE 200MG TABLET 400 MG PO ×2 (09:04→20:30)
[2024-07-14] MEDS: METOPROLOL SUCCINATE XL 25MG TABLET 25 MG PO (09:04)
[2024-07-14] MEDS: FAMOTIDINE 20MG TABLET 20 MG PO ×2 (09:04→20:30)
[2024-07-14] MEDS: CITALOPRAM 40MG TABLET 40 MG PO (09:04)
[2024-07-14] MEDS: APIXABAN 5MG TABLET 5 MG PO ×2 (09:13→20:30)
[2024-07-14] MEDS: DOXYCYCLINE HYCLATE 100 MG in 0.9 % SODIUM CHLORIDE 250 ML 166.667 MG IV ×2 (09:50→20:32)
--- NOTE | 2024-07-14 10:58 | PC.NURSE ---
arrived by w/c from ICU unit
--- NOTE | 2024-07-14 11:01 | PC.NURSE ---
Pt LEFT ICU TO GO TO ROOM 201 ON [facility] @1100 VIA WHEELCHAIR
--- NOTE | 2024-07-14 11:25 | P.PN_ITS ---
Subjective Subjective Date: 07/14/24 Time: 09:00 Interval history: CV stable overnight. Remains in sinus rhythm. Her echo showed severe biatrial dilation but normal EF and no wall motion abnormality. Her pneumonia is clearing and she is awaiting discharge to rehab. Exam Data for Last 24 hours Vital signs and Labs for Last 24 Hours: Temp Pulse Resp BP Pulse Ox O2 Del Method O2 Flow Rate 98.0 F 102 H 18 163/83 H 93 L Room Air 1.5 07/14/24 08:01 07/14/24 08:01 07/14/24 08:01 07/14/24 08:01 07/14/24 08:01 07/14/24 09:00 07/14/24 06:00 Laboratory Results - last 24 hr 07/12/24 22:27: POC Glucose 311 H* 07/13/24 00:08: POC Glucose 293 H 07/13/24 05:15: POC Glucose 153 H 07/13/24 11:03: POC Glucose 169 H 07/14/24 05:21: WBC 11.4 H, RBC 3.25 L, Hgb 9.2 L, Hct 29.0 L, MCV 89.2, MCH 28.3, MCHC 31.7 L, RDW 14.2, Plt Count 145, MPV 11.0 H, Neut % (Auto) 87.5 H, Lymph % (Auto) 7.9 L, [place] % (Auto) 3.5, Eos % (Auto) 0.1, Baso % (Auto) 0.1, Neut # (Auto) 10.0 H, Lymph # (Auto) 0.9, [place] # (Auto) 0.4, Eos # (Auto) 0.0, Baso # (Auto) 0.0, Sodium 141, Potassium 3.8, Chloride 109 H, Carbon Dioxide 25, Anion Gap 10.8, BUN 30 H D, Creatinine 0.90, Estimated Creat Clear 58, Estimated GFR 60, Est GFR ( Amer) 73, Glucose 105 H D, Calcium 8.2 L, Magnesium 2.1 D, Total Bilirubin 0.1 L, AST 52 H, ALT 25, Alkaline Phosphatase 57, NT-Pro-B Natriuret Pep 3920 H, Total Protein 6.1 L, Albumin 3.2 L, Globulin 2.9, Albumin/Globulin Ratio 1.1 I & O for Last 24 hours: Intake & Output 07/11/24 07/12/24 07/13/24 07/14/24 23:59 23:59 23:59 23:59 Intake Total 2275.339 / 2275.339 335 / 335 Output Total 1800 / 1800 300 / 300 Balance 475.339 / 475.339 35 / 35 Weight 194 lb 0.108 oz 190 lb 14.725 oz 184 lb 11.958 oz Microbiology Reports for the Last 24 Hours: Microbiology 07/13/24 13:13 Sputum - Expectorated Sputum Gram Stain - Final 07/13/24 13:13 Sputum - Expectorated Sputum Sputum Culture - Preliminary Constitutional Constitutional: no acute distress and cooperative *Routine HEENT Exam Eye: Present PERRL *Routine Respiratory Exam Respiratory: Present CTA bilaterally; Absent accessory muscle use, wheezes or crackles *Routine Cardiovascular Exam Cardiovascular: Present RRR, Normal S1 and Normal S2; Absent murmur, gallop or rubs *Routine Abdominal Exam Abdominal: Present soft; Absent tenderness *Routine Extremities Exam Extremities: Present pulses intact; Absent cyanosis or edema *Routine Skin Exam Skin: Present intact; Absent erythema or wounds *Routine Neurological Exam Neurological: Present alert and oriented X3 Routine Psychiatric Exam Psychiatric: Present cooperative Progress Note: A&P Assessment and plan (1) Acute respiratory failure with hypoxia: Status: Acute (2) Sepsis: Status: Acute (3) Pleural effusion, left: Status: Acute (4) Atrial fibrillation with rapid ventricular response: Status: Acute (5) Pulmonary emphysema: Status: Acute (6) Leukocytosis: Status: Acute (7) Hyperglycemia: Status: Acute (8) Elevated lactic acid level: Status: Acute (9) Pneumonia: Status: Acute (10) Thrombocytopenia: Status: Acute (11) Tobacco dependence: Status: Acute (12) Bladder cancer: Status: Chronic Assessment and Plan Assessment and Plan for All Diagnoses:: A-fib with RVR - known A-fib, exacerbated in setting of pneumonia - resume home dose Eliquis and Metoprolol - transition Amio from IV to PO. Discussed termite technician risks with patient and she is agreeable to proceed for now. Can discuss alternative strategies with her usual Senior Manager Quality Assurance outpatient. - ECHO shows severe biatrial dilation, nml EF - 2: stable in SR. Cont Amio, Metoprolol, Eliquis at discharge Elevated Trop - likely demand ischemia from A-fib RVR and resp failure - pt denies angina - 07/14: ECHO: nml EF, no WMA. Discussed ischemic w/u with pt. Given recent bladder surgery and PNA she would like to wait and do this OP rather than IP cath which is reasonable. Cont Eliquis, BB, statin Acute Hypoxic Repiratory Failure - secondary to bilateral pneumonia - possible HCAP - improving on antibiotics and with a-fib conversion to SR - 07/14: stable and improving Malignant Bladder Cancer - s/p resection and placement of indwelling cath 07/10 at - hx of 2 other cancer dx - details unclear at this time. CV stable, will sign off. She needs f/u with her Senior Manager Quality Assurance 1-2 week post discharge to manage Amiodarone and consider ichemic workup.
--- NOTE | 2024-07-14 15:38 | P.PN_ITS ---
Subjective *Date: 07/14/24 *Time: 15:38 Interval history: Patient is doing well today, no acute concerns. Feels ready to start rehab. Pending prior authorization at [place] at this time. No chest pain, shortness of breath. Exam Data for Last 24 hours Vital signs and Labs for Last 24 Hours: Temp Pulse Resp BP Pulse Ox O2 Del Method O2 Flow Rate 98.5 F 87 20 156/68 H 92 L Room Air 1.5 07/14/24 12:00 07/14/24 12:00 07/14/24 12:00 07/14/24 12:00 07/14/24 12:00 07/14/24 15:00 07/14/24 06:00 Laboratory Results - last 24 hr 07/12/24 22:27: POC Glucose 311 H* 07/13/24 00:08: POC Glucose 293 H 07/13/24 05:15: POC Glucose 153 H 07/13/24 11:03: POC Glucose 169 H 07/14/24 05:21: WBC 11.4 H, RBC 3.25 L, Hgb 9.2 L, Hct 29.0 L, MCV 89.2, MCH 28.3, MCHC 31.7 L, RDW 14.2, Plt Count 145, MPV 11.0 H, Neut % (Auto) 87.5 H, Lymph % (Auto) 7.9 L, [place] % (Auto) 3.5, Eos % (Auto) 0.1, Baso % (Auto) 0.1, Neut # (Auto) 10.0 H, Lymph # (Auto) 0.9, [place] # (Auto) 0.4, Eos # (Auto) 0.0, Baso # (Auto) 0.0, Sodium 141, Potassium 3.8, Chloride 109 H, Carbon Dioxide 25, Anion Gap 10.8, BUN 30 H D, Creatinine 0.90, Estimated Creat Clear 58, Estimated GFR 60, Est GFR ( Amer) 73, Glucose 105 H D, Calcium 8.2 L, Magnesium 2.1 D, Total Bilirubin 0.1 L, AST 52 H, ALT 25, Alkaline Phosphatase 57, NT-Pro-B Natriuret Pep 3920 H, Total Protein 6.1 L, Albumin 3.2 L, Globulin 2.9, Albumin/Globulin Ratio 1.1 I & O for Last 24 hours: Intake & Output 07/11/24 07/12/24 07/13/24 07/14/24 23:59 23:59 23:59 23:59 Intake Total 2275.339 / 2275.339 695 / 695 Output Total 1800 / 1800 700 / 700 Balance 475.339 / 475.339 -5 / -5 Weight 88 kg 86.6 kg 83.8 kg Microbiology Reports for the Last 24 Hours: Microbiology 07/13/24 13:13 Sputum - Expectorated Sputum Gram Stain - Final 07/13/24 13:13 Sputum - Expectorated Sputum Sputum Culture - Preliminary Constitutional Constitutional: no acute distress *Routine HEENT Exam Head: Present normocephalic Eye: Present EOMI and PERRL ENT: Present mucous membranes moist *Routine Neck Exam Neck: Present supple; Absent lymphadenopathy *Routine Respiratory Exam Respiratory: Present CTA bilaterally *Routine Cardiovascular Exam Cardiovascular: Present RRR *Routine Abdominal Exam Abdominal: Present soft and normoactive bowel sounds; Absent tenderness *Routine Extremities Exam Extremities: Absent cyanosis, clubbing or edema *Routine Skin Exam Skin: Present warm; Absent rash *Routine Neurological Exam Neurological: Present alert and oriented X3 Assessment and Plan *Assessment and plan (1) Acute respiratory failure with hypoxia: Status: Acute Category: Medical Code(s): J96.01 - Acute respiratory failure with hypoxia (2) Sepsis: Status: Acute Category: Medical Code(s): A41.9 - Sepsis, unspecified organism (3) Pleural effusion, left: Status: Acute Category: Medical Code(s): J90 - Pleural effusion, not elsewhere classified (4) Atrial fibrillation with rapid ventricular response: Status: Acute Category: Medical Code(s): I48.91 - Unspecified atrial fibrillation (5) Pulmonary emphysema: Status: Acute Category: Medical Code(s): J43.9 - Emphysema, unspecified (6) Leukocytosis: Status: Acute Category: Medical Code(s): D72.829 - Elevated white blood cell count, unspecified (7) Hyperglycemia: Status: Acute Category: Medical Code(s): R73.9 - Hyperglycemia, unspecified (8) Elevated lactic acid level: Status: Acute Category: Medical Code(s): R79.89 - Other specified abnormal findings of blood chemistry (9) Pneumonia: Status: Acute Category: Medical Code(s): J18.9 - Pneumonia, unspecified organism (10) Thrombocytopenia: Status: Acute Category: Medical Code(s): D69.6 - Thrombocytopenia, unspecified (11) Tobacco dependence: Status: Acute Category: Medical Code(s): F17.200 - Nicotine dependence, unspecified, uncomplicated (12) Bladder cancer: Status: Chronic Category: Medical Code(s): C67.9 - Malignant neoplasm of bladder, unspecified Juvencio Arellano is an 83-year-old female with hypertension, atrial fibrillation on Eliquis, COPD, prior CVA, and recent bladder tumor resection, presenting with fever, cough, and nausea found to have community-acquired pneumonia with possible sepsis. Hospital course complicated by NSTEMI, A-fib with RVR. #NSTEMI #A-fib with RVR #LV grade 2 diastolic dysfunction - Discussed case with cardiology, patient has known history of A-fib, responded well to amiodarone. Resume home metoprolol and Eliquis. Elevated troponin likely secondary to demand ischemia from A-fib RVR consistent with type II NSTEMI. Cardiology recommends considering ischemic workup as an outpatient. Troponin elevated at 0.45, down trended to 0.3, type II NSTEMI ? Continue amiodarone 400 mg twice daily, Eliquis 5 mg twice daily. - Echo shows LVEF 70%, grade 2 diastolic dysfunction, severe biatrial dilation, moderate TR, RVSP 35 to 40 mmHg. ? No signs of HFpEF decompensation, continue monitor. #Sepsis #Community acquired pneumonia #Acute hypoxemic respiratory failure, resolved - CTA chest obtained showing dense consolidation in lower lobes with small loculated left-sided pleural effusion. Respiratory panel negative. - Discussed case with pulmonology, recommend continuing ceftriaxone and azithrom ycin pending cultures. Nasal MRSA swab obtained. Continue Trelegy 100 inhaler and DuoNebs every 6 hours as needed. ? Weaned to room air saturating 92%. ? WBC stable around 11, no signs of sepsis at this time. ? Repeat CBC, CMP, magnesium ordered for the morning. #Physical deconditioning ? PT/OT consulted, recommended SNF. Case management assisting with placement, pending insurance prior authorization at [place]. Thrombocytopenia resolved, platelets 145 today. Chronic kidney disease with acute kidney injury - Creatinine 1.2, GFR 45, stable compared to prior; Creatinine improved with BUN 20, creatinine 0.8. Caution with nephrotoxins. Hyperglycemia, no prior history of diabetes -Glucose elevated at 300 on arrival. A1c obtained normal at 5.7. No signs of diabetes. Discontinued fingersticks and insulin Recurrent bladder cancer with recent resection -Case discussed with urologist from [facility], recommended pulling Coats as she is postop day 3. Monitor for urine output. -Path still pending from biopsies Tobacco use disorder: Nicotine patch while admitted DNR/DNI Eliquis twice daily Cardiac diet
[2024-07-14] MEDS: MULTIVITAMIN TABLET 1 EACH PO (17:56)
--- NOTE | 2024-07-14 18:21 | PC.NURSE ---
Pt alert and oriented x4. Pt has been ambulating with assistance x1 to bathroom. Pt has been resting in bed most this shift. tolerating meals. No complaints at this time. Awaiting precert for Cam hauser. Call light in reach, will continue to monitor.
--- NOTE | 2024-07-14 18:53 | PC.NURSE ---
Pt has had some higher BP's. Manual BP was taken it was 190/90. MD made aware and is making adjustments to medication.
[2024-07-14] MEDS: ATORVASTATIN 40MG TABLET 40 MG PO (20:30)
[2024-07-14] MEDS: IRBESARTAN 75MG TABLET 75 MG PO (20:30)
--- NOTE | 2024-07-14 22:46 | PC.NURSE ---
I checked on the patient at this time. Patient stated that she had another coughing fit and needed a brief change due to incontinence. After changing brief/linens and repositioning the patient, she started to cough heavily again to the point where she stated that she could not breathe. Audible wheezing and labored breathing was observed after coughing episode. A Dimitri PORTILLO and I assisted the patient to sit upright and encouraged her to breathe through the nose and out through the mouth. Nasal cannula 2 L oxygen flow was applied (patient previously maintained room air); patient's oxygen saturations were assessed before application and found to have dropped to 87% to 88%. After applying the nasal cannula, patient's oxygen saturations increased to 91% to 92%. She was assisted into the chair once her breathing/coughing was under control as a means to help with lung expansion. An incentive spirometer was provided at the bedside; education about its significance given. Patient is now resting up to chair with respirations more even and unlabored on 2 L of oxygen via nasal cannula.
[2024-07-15] VITALS (9 sets, daily range): BP systolic 162–190; BP diastolic 79–90; PULSE 80–137; RESP 15–20; TEMP 36.6–37.3; O2SAT 92–96; BMI 28.8
--- NOTE | 2024-07-15 00:25 | PC.NURSE ---
Addendum entered by Kathy Gutierrez RN 07/15/24 02:40: Thus far, since the administration of IV metoprolol, the patient's heart rate has remained within the 80s, bpm. Addendum entered by Kathy Gutierrez RN 07/15/24 01:00: Marii DARDEN was consulted [id number] at this time. He stated that he will order metoprolol tartrate IV NOW due to this occurrence. He requested that a manual blood pressure be taken prior to administration (will be documented accordingly). Addendum entered by Kathy Gutierrez RN 07/15/24 00:51: Albuterol administration on hold by RTs due to patient maintaining an elevated heart rate (in 130s). Patient is currently resting up to the chair without any apparent distress and no coughing fits. Heart rate continues to remain elevated despite no coughing/shortness of breath complaint. Marii DARDEN was paged at this time to notify him about the situation and contraindication to administering albuterol. Addendum entered by Kathy Gutierrez RN 07/15/24 00:35: Respiratory was paged at this time for administration of Albuterol. Original Note: During the patient's coughing fits, the patient's heart rate started to spike between 130s and 150s on telemetry. This occurrence happened a few times this shift; however, once her coughing fit would surpass, her heart rate would return to her baseline, occasionally paced. Marii DARDEN was paged to inform him about these occurrences. A new order for Albuterol Sulfate as needed was obtained for bronchial spasms.
[2024-07-15] MEDS: ALBUTEROL 0.083% 2.5 MG/3 ML NEB IH (00:43)
--- NOTE | 2024-07-15 00:58 | PC.NURSE ---
Rt unable to give proventil treatment at this time due to heart rate 130 and above.
[2024-07-15] MEDS: METOPROLOL TARTRATE 5MG/5ML VIAL 2.5 MG IV (01:09)
--- NOTE | 2024-07-15 02:42 | PC.NURSE ---
Patient is alert and oriented x4. Patient is currently resting up to the chair with eyes closed and respirations even/unlabored. She continues to have intermittent coughing. She has remained on 2 L of oxygen via nasal cannula since application (see prior note) for the majority of the night with oxygen saturations > 90%. Heart rate has improved since administration of IV metoprolol per MAR (see prior note). Scheduled medications + scheduled breathing treatments (as appropriate) were administered per MAR. Robitussin was administered once this shift for strong coughing. A purewick/brief has been utilized this shift due incontinence episodes; patient additionally ambulated with assistance to the bathroom for elimination needs as well. Gait was observed to be unsteady. Urine appearance hematuria (has history of bladder cancer) and without odor. Patient has not complained of any nausea/vomiting nor any type of pain this shift. Lung sounds diminished upon auscultation. Further audible wheezing has subsided thus far (see prior note). Blood pressures have remained elevated. No new needs at this time. Call light within reach.
[2024-07-15] MEDS: GUAIFENESIN/DEXTROMETHORPHAN 200MG/20MG 10ML UDC 10 ML PO ×2 (04:25→12:37)
[2024-07-15] MEDS: LEVALBUTEROL 1.25MG/3ML NEB 1.25 MG IH ×2 (06:04→11:04)
[2024-07-15] MEDS: IPRATROPIUM BROMIDE 0.5 MG/2.5ML SOLUTION IH ×2 (06:04→11:04)
[2024-07-15 06:37] LABS: Basophils % 0.3 % (0.1-2.0); Eosinophils # 0.2 K/mm3 (0.0-0.4); Eosinophils % 2.9 % (0.1-12.0); Hematocrit 30.5 % (37.0-47.0); Hemoglobin 9.9 g/dL (12.2-16.2); Lymphocytes # 1.6 K/mm3 (0.7-4.5); Lymphocytes % 21.1 % (10-50); Mean Corpuscular HGB Conc 32.5 g/dL (31.8-35.4); Mean Corpuscular Hemoglobin 28.8 pg (27.0-31.2); Mean Corpuscular Volume 88.7 fl (81-99); Mean Platelet Volume 10.5 fl (7.4-10.4); Monocytes # 0.4 K/mm3 (0.1-1.0); Monocytes % 5.5 % (1.7-9.3); Neutrophils # 5.4 K/mm3 (1.8-7.8); Neutrophils % 69.8 % (37.0-80.0); Platelet Count 148 K/mm3 (142-424); Red Blood Count 3.44 M/mm3 (4.20-5.40); Red Cell Distribution Width 14.3 % (11.5-17.5); White Blood Count 7.7 K/mm3 (4.8-10.8)
[2024-07-15 06:38] LABS: Albumin Level 3.4 g/dl (3.5-5.0); Chloride 108 mmol/L (98-107); Potassium 3.8 mmoL/L (3.5-5.1); Sodium 139 mmol/L (136-145)
[2024-07-15 06:41] LABS: Alanine Aminotransferase 30 U/L (12-78); Albumin/Globulin Ratio 1.2 (1.1-1.8); Alkaline Phosphatase 58 U/L (38-126); Anion Gap 8.8 mEq/L (5-15); Aspartate Amino Transferase 54 U/L (14-36); Bilirubin,Total 0.4 mg/dl (0.2-1.3); Blood Urea Nitrogen 24 mg/dl (7-17); Carbon Dioxide 26 mmol/L (22.0-30.0); Creatinine Clearance Estimated 58 mL/min (50-200); Estimated Glomerular Filt Rate 80 ml/min (>60); GFR (African American) 97 ML/MIN (>60); Globulin 2.9 g/dL (1.3-3.2); Total Protein,Serum 6.3 g/dl (6.3-8.2)
[2024-07-15 06:42] LABS: Calcium 8.3 mg/dl (8.4-10.2); Glucose 94 mg/dl (74-100)
[2024-07-15 07:01] LABS: Magnesium 1.8 mg/dl (1.6-2.3)
[2024-07-15] MEDS: APIXABAN 5MG TABLET 5 MG PO (08:26)
[2024-07-15] MEDS: CITALOPRAM 40MG TABLET 40 MG PO (08:26)
[2024-07-15] MEDS: DOXYCYCLINE HYCLATE 100 MG in 0.9 % SODIUM CHLORIDE 250 ML 166.667 MG IV (08:26)
[2024-07-15] MEDS: IRBESARTAN 75MG TABLET 75 MG PO (08:26)
[2024-07-15] MEDS: FAMOTIDINE 20MG TABLET 20 MG PO (08:26)
[2024-07-15] MEDS: AMIODARONE 200MG TABLET 400 MG PO (08:26)
[2024-07-15] MEDS: METOPROLOL SUCCINATE XL 25MG TABLET 25 MG PO (08:26)
--- NOTE | 2024-07-15 08:30 | EXP.PHA.PN ---
Subjective *Date: 07/15/24 *Time: 08:30 Medical Exam Vital signs and Labs for Last 24 Hours: Vital Signs Temp Pulse Pulse Resp BP BP Pulse Ox 07/15/24 08:11 07/15/24 07:26 88 20 190/90 H 94 L 07/15/24 06:30 07/15/24 06:04 82 07/15/24 06:04 84 07/15/24 06:04 94 L 07/15/24 05:00 07/15/24 04:00 90 07/15/24 04:00 97.8 F 91 H 17 181/90 H 94 L 07/15/24 03:00 07/15/24 01:15 137 H 162/79 H 07/15/24 01:00 07/15/24 00:08 82 07/15/24 00:00 90 07/15/24 00:00 99.1 F 104 H 20 173/85 H 92 L 07/14/24 23:50 84 07/14/24 23:00 07/14/24 21:00 07/14/24 20:00 87 19 94 L 07/14/24 20:00 110 H 07/14/24 20:00 98.2 F 87 19 172/69 H 94 L 07/14/24 18:56 07/14/24 18:55 87 07/14/24 18:54 88 07/14/24 17:00 07/14/24 16:00 70 07/14/24 16:00 98 F 92 H 17 180/85 H 91 L 07/14/24 15:00 07/14/24 13:00 07/14/24 12:00 100 H 07/14/24 12:00 98.5 F 87 20 156/68 H 92 L 07/14/24 11:00 07/14/24 09:00 O2 Del Method O2 Flow Rate 07/15/24 08:11 Nasal Cannula 2 07/15/24 07:26 Nasal Cannula 2 07/15/24 06:30 Nasal Cannula 2 07/15/24 06:04 07/15/24 06:04 07/15/24 06:04 Nasal Cannula 2 07/15/24 05:00 Nasal Cannula 2 07/15/24 04:00 07/15/24 04:00 Nasal Cannula 2 07/15/24 03:00 Nasal Cannula 2 07/15/24 01:15 07/15/24 01:00 Nasal Cannula 2 07/15/24 00:08 07/15/24 00:00 07/15/24 00:00 Nasal Cannula 2 07/14/24 23:50 07/14/24 23:00 Nasal Cannula 2 07/14/24 21:00 Room Air 07/14/24 20:00 Room Air 07/14/24 20:00 07/14/24 20:00 Nasal Cannula 2 07/14/24 18:56 Room Air 07/14/24 18:55 07/14/24 18:54 07/14/24 17:00 Room Air 07/14/24 16:00 07/14/24 16:00 Room Air 07/14/24 15:00 Room Air 07/14/24 13:00 Room Air 07/14/24 12:00 07/14/24 12:00 Room Air 07/14/24 11:00 Room Air 07/14/24 09:00 Room Air Intake and Output 07/14/24 07/15/24 07/15/24 23:59 07:59 15:59 Intake Total 360 / 1755 800 / 800 0 / 800 Output Total 0 / 700 560 / 560 Balance 360 / 1055 240 / 240 0 / 240 Intake: Intake, Oral Amount 360 / 1455 500 / 500 0 / 500 Infusion Intake 300 / 300 Ceftriaxone 1 gm 1 gm In 0.9 % 50 / 50 Sodium Chloride 50 ml @ 100 mls /hr IV Q24H [facility] Rx#:[id number] Doxycycline Hyclate 100 mg In 0 250 / 250 .9 % Sodium Chloride 250 ml @ 166.667 mls/hr IV Q12H [facility] Rx#: [id number] Output: Output, Urine Amount 0 / 700 560 / 560 Other: Number of Voids 0 Number of Unmeasured Voids 1 Number of Bowel Movements 1 1 Weight 83.2 kg Patient Weight 07/15/24 23:59 Weight 83.2 kg Laboratory Results - last 24 hr 07/14/24 05:21: NT-Pro-B Natriuret Pep 3920 H 07/15/24 06:00: WBC 7.7 D, RBC 3.44 L, Hgb 9.9 L, Hct 30.5 L, MCV 88.7, MCH 28.8, MCHC 32.5, RDW 14.3, Plt Count 148, MPV 10.5 H, Neut % (Auto) 69.8, Lymph % (Auto) 21.1, [place] % (Auto) 5.5, Eos % (Auto) 2.9, Baso % (Auto) 0.3, Neut # (Auto) 5.4, Lymph # (Auto) 1.6, [place] # (Auto) 0.4, Eos # (Auto) 0.2, Baso # (Auto) 0.0, Sodium 139, Potassium 3.8, Chloride 108 H, Carbon Dioxide 26, Anion Gap 8.8, BUN 24 H, Creatinine 0.70 D, Estimated Creat Clear 58, Estimated GFR 80, Est GFR ( Amer) 97 D, Glucose 94, Calcium 8.3 L, Magnesium 1.8 D, Total Bilirubin 0.4, AST 54 H, ALT 30, Alkaline Phosphatase 58, Total Protein 6.3, Albumin 3.4 L, Globulin 2.9, Albumin/Globulin Ratio 1.2 I & O for Labs for Last 24 Hours: Intake & Output 07/12/24 07/13/24 07/14/24 07/15/24 23:59 23:59 23:59 23:59 Intake Total 2275.339 / 2275.339 1055 / 1755 800 / 800 Output Total 1800 / 1800 700 / 700 560 / 560 Balance 475.339 / 475.339 355 / 1055 240 / 240 Weight 88 kg 86.6 kg 83.8 kg 83.2 kg Microbiology Reports for the Last 24 Hours: Microbiology 07/13/24 13:13 Sputum - Expectorated Sputum Gram Stain - Final 07/13/24 13:13 Sputum - Expectorated Sputum Sputum Culture - Preliminary The patient's infection will respond to the chosen ABx?: Yes Is the patient receiving the right drug, dose, and route?: Yes Could a more targeted ABx be ordered?: No (AFEBRILE, WBC WNL, CX PENDING. CONTINUE CURRENT ABX.)
--- NOTE | 2024-07-15 09:18 | XR_ITS ---
FINAL REPORT CLINICAL HISTORY: hypoxia..pneumonia COMPARISON: 07/12/2024 FINDINGS: No acute pulmonary opacity is present. There are small bilateral pleural effusions. There is improved mild edema. There is no evidence of pneumothorax. Left-sided pacemaker is noted. Mediastinum is unremarkable. Heart size is mildly enlarged. IMPRESSION: Mild CHF, improved: Reviewed, Interpreted and Dictated by Riaz Meyer MD Transcribed by Josie Haas Authenticated and . [facility]
--- NOTE | 2024-07-15 09:42 | EXP.PULM.PN ---
Subjective *Date: 07/15/24 *Time: 11:28 Interval history: No acute respiratory events overnight. Patient denies any new respiratory complaints Pulmonology Exam Inpatient Vital signs and Labs for Last 24 Hours: Temp Pulse Resp BP Pulse Ox O2 Del Method O2 Flow Rate 97.8 F 90 20 190/90 H 94 L Nasal Cannula 2 07/15/24 04:00 07/15/24 08:00 07/15/24 07:26 07/15/24 07:26 07/15/24 07:26 07/15/24 08:11 07/15/24 08:11 Laboratory Results - last 24 hr 07/15/24 06:00: WBC 7.7 D, RBC 3.44 L, Hgb 9.9 L, Hct 30.5 L, MCV 88.7, MCH 28.8, MCHC 32.5, RDW 14.3, Plt Count 148, MPV 10.5 H, Neut % (Auto) 69.8, Lymph % (Auto) 21.1, [place] % (Auto) 5.5, Eos % (Auto) 2.9, Baso % (Auto) 0.3, Neut # (Auto) 5.4, Lymph # (Auto) 1.6, [place] # (Auto) 0.4, Eos # (Auto) 0.2, Baso # (Auto) 0.0, Sodium 139, Potassium 3.8, Chloride 108 H, Carbon Dioxide 26, Anion Gap 8.8, BUN 24 H, Creatinine 0.70 D, Estimated Creat Clear 58, Estimated GFR 80, Est GFR ( Amer) 97 D, Glucose 94, Calcium 8.3 L, Magnesium 1.8 D, Total Bilirubin 0.4, AST 54 H, ALT 30, Alkaline Phosphatase 58, Total Protein 6.3, Albumin 3.4 L, Globulin 2.9, Albumin/Globulin Ratio 1.2 Temp Pulse Resp BP Pulse Ox O2 Del Method O2 Flow Rate 97.5 F L 84 20 127/61 95 Nasal Cannula 3 07/13/24 08:00 07/13/24 08:16 07/13/24 08:16 07/13/24 08:16 07/13/24 08:16 07/13/24 08:16 07/13/24 08:16 Laboratory Results - last 24 hr 07/12/24 04:39: Urine Color Dark yellow, Urine Appearance Slightly cloudy, Urine pH 6.0, Ur Specific [place] <= 1.005, Urine Glucose (UA) Negative, Urine Ketones Negative, Urine Bilirubin Negative, Urine Urobilinogen 0.2, Urine RBC 50-100, Urine WBC 5-10, Ur Squamous Epith Cells Occasional, Urine Bacteria Trace 07/12/24 21:00: WBC 12.3 H, RBC 3.60 L, Hgb 10.3 L, Hct 32.7 L, MCV 90.8, MCH 28.6, MCHC 31.5 L, RDW 14.1, Plt Count 129 L, MPV 10.9 H, Neut % (Auto) 95.9 H, Lymph % (Auto) 2.2 L, [place] % (Auto) 0.3 L, Eos % (Auto) 0.0 L, Baso % (Auto) 0.1, Neut # (Auto) 11.8 H, Lymph # (Auto) 0.3 L, [place] # (Auto) 0.0 L, Eos # (Auto) 0.0, Baso # (Auto) 0.0, Total Counted 100, Neutrophils % (Manual) 96 H, Lymphocytes % (Manual) 4 L, Platelet Estimate Slight decrease, RBC Morphology Normal, APTT > 139.0 H*, Sodium 137, Potassium 4.3, Chloride 101, Carbon Dioxide 24, Anion Gap 16.3 H, BUN 17, Creatinine 0.80, Estimated Creat Clear 61, Estimated GFR 69, Est GFR ( Amer) 83, Glucose 225 H, Lactate 3.8 H, Calcium 8.3 L, Magnesium 1.6, Total Bilirubin 0.5, AST 66 H, ALT 32, Alkaline Phosphatase 52, Troponin I 0.31 H, Total Protein 6.4, Albumin 3.6, Globulin 2.8, Albumin/Globulin Ratio 1.3 07/12/24 21:08: Chlamy pneumoniae PCR Not detected, Adenovirus (PCR) Not detected, B. pertussis DNA (PCR) Not detected, Coronavirus OC43 (PCR) Not detected, Coronavirus HKU1 (PCR) Not detected, Coronavirus 229E (PCR) Not detected, SARS-CoV-2 (PCR) Not detected, Coronavirus NL63 (PCR) Not detected, Human Metapneumovir PCR Not detected, Influenza A (H1) PCR Not detected, Influ A (H1N1/09) PCR Not detected, Influenza A (H3) PCR Not detected, Influenza Type A (PCR) Not detected, Influenza Type B (PCR) Not detected, M. pneumoniae (PCR) Not detected, Parainfluenza 1 (PCR) Not detected, Parainfluenza 2 (PCR) Not detected, Parainfluenza 3 (PCR) Not detected, Parainfluenza 4 (PCR) Not detected, RSV (PCR) Not detected, Entero/Rhino (PCR) Not detected 07/13/24 02:05: APTT > 139.0 H*, Lactate 2.7 H 07/13/24 03:58: APTT > 139.0 H* 07/13/24 05:16: APTT > 139.0 H* 07/13/24 06:59: APTT 124.6 H*, Hemoglobin A1c 5.7, Lactate 2.4 H I & O for Labs for Last 24 Hours: Intake & Output 07/12/24 07/13/24 07/14/24 07/15/24 23:59 23:59 23:59 23:59 Intake Total 2275.339 / 2275.339 1055 / 1755 800 / 800 Output Total 1800 / 1800 700 / 700 560 / 560 Balance 475.339 / 475.339 355 / 1055 240 / 240 Weight 194 lb 0.108 oz 190 lb 14.725 oz 184 lb 11.958 oz 183 lb 6.793 oz Intake & Output 07/10/24 07/11/24 07/12/24 07/13/24 23:59 23:59 23:59 23:59 Intake Total 644.339 / 644.339 Output Total 1300 / 1300 Balance -655.661 / -655.661 Weight 194 lb 0.108 oz 190 lb 14.725 oz Microbiology Reports for the Last 24 Hours: Microbiology 07/12/24 04:39 Urine,Clean Catch Urine Culture - Final No growth. 07/13/24 13:13 Sputum - Expectorated Sputum Gram Stain - Final 07/13/24 13:13 Sputum - Expectorated Sputum Sputum Culture - Preliminary Constitutional: Present moderate distress Head: Present normocephalic and atraumatic ENT: Present normal exam, normal oropharynx and mucous membranes moist Neck: Present normal inspection and full ROM Respiratory: Present respiratory distress, rhonchi, diminished air movement and able to speak in complete sentences; Absent wheezes Cardiac: Present S1/S2, Tachycardia and radial pulses present GI: Present soft and distention; Absent tenderness or guarding Rectal (female): Present deferred (female): Present deferred Skin: Present intact; Absent cyanosis or jaundice Neuro: Present alert, awake and oriented x 3 Extremities: Present normal inspection; Absent clubbing or cyanosis Psychiatric: Present normal affect and cooperative Assessment and Plan *Assessment and plan (1) Pneumonia: Status: Acute Category: Medical Code(s): J18.9 - Pneumonia, unspecified organism (2) Acute respiratory failure with hypoxia: Status: Acute Category: Medical Code(s): J96.01 - Acute respiratory failure with hypoxia (3) Pulmonary emphysema: Status: Acute Category: Medical Code(s): J43.9 - Emphysema, unspecified (4) Pleural effusion, left: Status: Acute Category: Medical Code(s): J90 - Pleural effusion, not elsewhere classified Plan Ms. Arellano is a 83-year-old female current smoker greater than [id number] smoking history, COPD at baseline Trelegy 100 inhaler not using any oxygen supplementation with reported history of hypertension atrial fibrillation on Eliquis hyperlipidemia COPD, CVA history of bladder tumor status postresection on Jul 10 at [facility] presented with worsening respiratory distress cough fever nausea vomiting and pulmonary was called for further evaluation and management. Patient upon admission found to be in A-fib RVR recently, transition amiodarone with improved heart rate also on her Symbicort meds from 15 L room air. CTA upon admission no evidence of pulmonary embolism. Bilateral lower lobe consolidative changes right greater than left along with small left pleural effusion. Afebrile. Hemodynamically stable. Mild neutrophilic predominant leukocytosis. Comprehensive respiratory viral PCR panel negative. Currently receiving ceftriaxone and doxycycline along with Trelegy inhaler and nebulization therapies. Interval update: No acute respiratory events overnight. Improving leukocytosis. Continue to receive ceftriaxone and azithromycin. Present sputum cultures unyielding. Afebrile. Hemodynamically stable. Chest x-ray this morning continue to show right lower lobe airspace disease and small adjacent effusion. Received 40 mg IV Lasix once today. Will follow. Plan: Incentive spirometry and flutter valve, advised to be more compliant Continue ceftriaxone azithromycin. Antibiotics can be weaned to cefdinir upon discharge to complete a total of 7-day course follow-up with nasal MRSA PCR and sputum cltures Trelegy 100 inhaler along with DuoNebs 4 times daily as needed Continue oxygen supplementation to maintain O2 saturation goal of 90% and above. Currently needing 1 to 2 L nasal oxygen supplementation to maintain O2 saturation goal of 90% and above
--- NOTE | 2024-07-15 09:56 | PC.NURSE ---
Dr. Rae at bedside
[2024-07-15] MEDS: CEFTRIAXONE 1 GM 1 GM in 0.9 % SODIUM CHLORIDE 50 ML IV (10:27)
[2024-07-15] MEDS: FUROSEMIDE 40MG/4ML VIAL 40 MG IV (11:04)
[2024-07-15 11:18] LABS: NT Pro Brain Natriuretic Pep. 7270 pg/mL (0-450)
--- NOTE | 2024-07-15 12:13 | EXP.DC.SUM ---
General Admission date:: 07/12/24 HPI HPI HPI: This is an 83-year-old female with a past medical history of hypertension, atrial fibrillation on Eliquis, hyperlipidemia, prior cerebrovascular accident without residual deficit, COPD, tobacco dependence, and recently diagnosed malignant bladder tumor status post resection at the [facility] on July 10, who originally presented to [facility] via EMS with fever, cough, nausea, and vomiting that began the previous evening. She reports that she underwent bladder resection under general anesthesia with an indwelling urinary catheter placement on July 10. She felt well initially but developed nausea after supper on July 11, which progressively worsened throughout the day. She began to feel increasingly unwell and contacted EMS due to persistent symptoms of fever, cough, and generalized malaise. Upon arrival to the [facility] emergency department, her vital signs showed blood pressure of 148/67, heart rate 96, respiratory rate 20, temperature 100.3?F, and oxygen saturation of 95% on room air. Initial evaluation included a stat chest X-ray, which showed left basilar infiltrates. Urinalysis was positive for nitrites and leukocytes, though suspected to be contaminated. She was started on IV Rocephin, followed by oral Levaquin 500 mg, Tylenol for fever, and DuoNebs for respiratory support. Shortly after receiving DuoNebs, she developed atrial fibrillation with a rapid ventricular response (RVR) at 162 bpm. She was given 1.5 mg of IV Lopressor, which failed to reduce the heart rate, followed by 10 mg IV diltiazem, then started on a diltiazem drip. Troponin was elevated at 0.45, and laboratory work showed WBC 13.6, hemoglobin 11.8, creatinine 1.2, GFR 45, AST 43, lactic acid 1.6, and procalcitonin 0.56. Given her clinical status, consultation was made with Dr. Carrasquillo (cardiology), who recommended initiating anticoagulation with low-dose heparin and transferring her to [facility]. Upon arrival at [facility], she was noted to be on a 15L non-rebreather with oxygen saturation of 92%, and a diltiazem drip at 15 mg/hr. Her heart rate remained elevated at 135-140 bpm, with a blood pressure of 90/55. A CTA of the chest was performed, which ruled out pulmonary embolism but confirmed dense consolidations in the lower lungs concerning for pneumonia and a small partially loculated left pleural effusion. Scattered emphysematous changes with chronic bronchial wall thickening were also noted. Due to persistent tachycardia despite diltiazem, the patient was transitioned to an amiodarone bolus, which successfully converted her to sinus rhythm. An amiodarone drip was continued, and the patient reported significant improvement in symptoms with heart rate deceleration. She was successfully weaned from 15L non-rebreather to 5L nasal cannula and then to room air, maintaining an oxygen saturation of 92%. Repeat laboratory work at [facility] showed WBC 12.3, hemoglobin 10.3, anion gap 16.3, lactic acid initially 3.8 and down to 2.7 on repeat, troponin 0.31 (down from 0.45), and blood glucose 317, though she denies a history of diabetes. A repeat urinalysis was ordered and is pending. Given her improving hemodynamics and transition to sinus rhythm, she remains under close monitoring for pneumonia and potential sepsis, with continued antibiotic therapy and supportive care. Hospital Course Hospital Course Hospital Course: Violet Arellano is an 83-year-old female with hypertension, atrial fibrillation on Eliquis, COPD, prior CVA, and recent bladder tumor resection, presenting with fever, cough, and nausea found to have community-acquired pneumonia with possible sepsis. Hospital course complicated by NSTEMI, A-fib with RVR. #A-fib with RVR #HFpEF exacerbation #NSTEMI type II #Hypertension - Discussed case with cardiology, patient has known history of A-fib, responded well to amiodarone. Resume home metoprolol and Eliquis. Elevated troponin likely secondary to demand ischemia from A-fib RVR consistent with type II NSTEMI. Cardiology recommends considering ischemic workup as an outpatient. Troponin elevated at 0.45, down trended to 0.3, type II NSTEMI ? Continue amiodarone 400 mg twice daily, Eliquis 5 mg twice daily. - Echo shows LVEF 70%, grade 2 diastolic dysfunction, severe biatrial dilation, moderate TR, RVSP 35 to 40 mmHg. ? BNP bumped to 7000 during admission, had nighttime desaturations to the mid 80s, given IV Lasix 40 mg with improvement in symptoms. Continue Lasix 40 mg daily. ? Increase Lasix to 40 mg daily, started spironolactone 25 mg, discontinued hydralazine to reduce risk of reflex tachycardia in the setting of A-fib ? Follow-up with cardiology within 2 weeks. #Sepsis #Community acquired pneumonia #Acute hypoxemic respiratory failure - CTA chest obtained showing dense consolidation in lower lobes with small loculated left-sided pleural effusion. Respiratory panel negative. ? Clinically improved with ceftriaxone, azithromycin. ? Discharged with cefdinir for 4 more days. ? Continue Trelegy 100 inhaler and DuoNebs every 6 hours as needed. ? Continue 2 L nasal cannula, wean as tolerated. #Physical deconditioning ? PT/OT consulted, recommended SNF. [facility] graciously accepted patient. #Recurrent bladder cancer with recent resection - Case discussed with urologist from [facility], recommended pulling Coats. Has had appropriate urine output since. - Path still pending from biopsies ? Continue follow-up with [facility] urology Thrombocytopenia resolved, platelets 145 today. Chronic kidney disease with acute kidney injury - Creatinine 1.2, GFR 45, stable compared to prior; Creatinine improved with BUN 24, creatinine 0.7. Caution with nephrotoxins. Hyperglycemia, no prior history of diabetes - Glucose elevated at 300 on arrival. A1c obtained normal at 5.7. No signs of diabetes. Discontinued fingersticks and insulin Tobacco use disorder: Nicotine patch while admitted DNR/DNI Eliquis twice daily Cardiac diet Exam Data for Last 24 hours Vital signs and Labs for Last 24 Hours: Temp Pulse Resp BP Pulse Ox O2 Del Method O2 Flow Rate 98.5 F 86 15 184/88 H 96 Nasal Cannula 2 07/15/24 11:41 07/15/24 11:41 07/15/24 11:41 07/15/24 11:41 07/15/24 11:41 07/15/24 11:41 07/15/24 11:41 Laboratory Results - last 24 hr 07/15/24 06:00: WBC 7.7 D, RBC 3.44 L, Hgb 9.9 L, Hct 30.5 L, MCV 88.7, MCH 28.8, MCHC 32.5, RDW 14.3, Plt Count 148, MPV 10.5 H, Neut % (Auto) 69.8, Lymph % (Auto) 21.1, [place] % (Auto) 5.5, Eos % (Auto) 2.9, Baso % (Auto) 0.3, Neut # (Auto) 5.4, Lymph # (Auto) 1.6, [place] # (Auto) 0.4, Eos # (Auto) 0.2, Baso # (Auto) 0.0, Sodium 139, Potassium 3.8, Chloride 108 H, Carbon Dioxide 26, Anion Gap 8.8, BUN 24 H, Creatinine 0.70 D, Estimated Creat Clear 58, Estimated GFR 80, Est GFR ( Amer) 97 D, Glucose 94, Calcium 8.3 L, Magnesium 1.8 D, Total Bilirubin 0.4, AST 54 H, ALT 30, Alkaline Phosphatase 58, NT-Pro-B Natriuret Pep 7270 H, Total Protein 6.3, Albumin 3.4 L, Globulin 2.9, Albumin/Globulin Ratio 1.2 I & O for Last 24 hours: Intake & Output 07/12/24 07/13/24 07/14/24 07/15/24 23:59 23:59 23:59 23:59 Intake Total 2275.339 / 2275.339 1055 / 1755 1040 / 1040 Output Total 1800 / 1800 700 / 700 1060 / 1060 Balance 475.339 / 475.339 355 / 1055 -20 / -20 Weight 88 kg 86.6 kg 83.8 kg 83.2 kg Microbiology Reports for the Last 24 Hours: Microbiology 07/13/24 10:00 Nose - Nasal MRSA Culture - Final Negative 07/13/24 13:13 Sputum - Expectorated Sputum Gram Stain - Final 07/13/24 13:13 Sputum - Expectorated Sputum Sputum Culture - Final 07/12/24 04:39 Urine,Clean Catch Urine Culture - Final No growth. Constitutional Constitutional: no acute distress *Routine HEENT Exam Head: Present normocephalic Eye: Present EOMI and PERRL ENT: Present mucous membranes moist *Routine Neck Exam Neck: Present supple; Absent lymphadenopathy *Routine Respiratory Exam Respiratory: Present CTA bilaterally *Routine Cardiovascular Exam Cardiovascular: Present RRR *Routine Abdominal Exam Abdominal: Present soft and normoactive bowel sounds; Absent tenderness *Routine Extremities Exam Extremities: Absent cyanosis, clubbing or edema *Routine Skin Exam Skin: Present warm; Absent rash *Routine Neurological Exam Neurological: Present alert and oriented X3 Results Data Completed and Pending Labs on day of discharge: Labs from last 24 hours 07/15/24 06:00 WBC 7.7 D RBC 3.44 L Hgb 9.9 L Hct 30.5 L MCV 88.7 MCH 28.8 MCHC 32.5 RDW 14.3 Plt Count 148 MPV 10.5 H Neut % (Auto) 69.8 Lymph % (Auto) 21.1 [place] % (Auto) 5.5 Eos % (Auto) 2.9 Baso % (Auto) 0.3 Neut # (Auto) 5.4 Lymph # (Auto) 1.6 [place] # (Auto) 0.4 Eos # (Auto) 0.2 Baso # (Auto) 0.0 Sodium 139 Potassium 3.8 Chloride 108 H Carbon Dioxide 26 Anion Gap 8.8 BUN 24 H Creatinine 0.70 D Estimated Creat Clear 58 Estimated GFR 80 Est GFR ( Amer) 97 D Glucose 94 Calcium 8.3 L Magnesium 1.8 D Total Bilirubin 0.4 AST 54 H ALT 30 Alkaline Phosphatase 58 NT-Pro-B Natriuret Pep 7270 H Total Protein 6.3 Albumin 3.4 L Globulin 2.9 Albumin/Globulin Ratio 1.2 DS: Diagnosis Discharge Diagnosis (1) Pneumonia: Status: Acute Code(s): J18.9 - Pneumonia, unspecified organism (2) Acute respiratory failure with hypoxia: Status: Acute Code(s): J96.01 - Acute respiratory failure with hypoxia (3) Pulmonary emphysema: Status: Acute Code(s): J43.9 - Emphysema, unspecified (4) Pleural effusion, left: Status: Acute Code(s): J90 - Pleural effusion, not elsewhere classified Meds Home Medications and Allergies Home Medications ?Medication ?Instructions ?Recorded ?Confirmed ?Type anastrozole 1 mg tablet 1 mg PO DAILY 07/12/24 07/12/24 History apixaban 5 mg tablet 5 mg PO BID 07/12/24 07/13/24 History escitalopram oxalate 20 mg tablet 20 mg PO DAILY 07/12/24 07/12/24 History famotidine 20 mg tablet 20 mg PO BID 07/12/24 07/12/24 History fluticasone furoate 100 100 mcg inhalation DAILY 07/12/24 07/12/24 History mcg/actuation blister powder for inhalation (Arnuity Ellipta) metoprolol succinate 25 mg 25 mg PO DAILY 07/12/24 07/12/24 History tablet,extended release 24 hr multivitamin with iron-mineral 1 tab PO DAILY 07/12/24 07/12/24 History nicotine 14 mg/24 hr daily 14 mg transdermal DAILY 07/12/24 07/12/24 History transdermal patch nitroglycerin 0.4 mg sublingual 0.4 mg sublingual NEEDED PRN 07/12/24 07/12/24 History tablet Chest Pain rosuvastatin 40 mg tablet 40 mg PO HS 07/12/24 07/13/24 History vibegron 75 mg tablet 75 mg PO DAILY 07/12/24 07/12/24 History losartan 100 mg tablet 100 mg PO DAILY 07/13/24 07/13/24 History amiodarone 200 mg tablet 400 mg (2 x 200 mg) PO BID 30 days 07/15/24 Rx #120 tabs cefdinir 300 mg capsule 300 mg PO BID 4 days #8 caps 07/15/24 Rx furosemide 20 mg tablet 40 mg (2 x 20 mg) PO DAILY 30 days 07/15/24 Rx #60 tabs spironolactone 25 mg tablet 25 mg PO DAILY #30 tabs 07/15/24 Rx New Prescriptions to Start Prescriptions: amiodarone Johnathan Macias cefdinir Colleen,Johnathan furosemide Colleen,Johnathan spironolactone Colleen,Johnathan Allergies Allergy/AdvReac Type Severity Reaction Status Date / Time bacitracin (From Neosporin Allergy Unknown Unknown Verified 07/13/24 07:49 Plus PainRelief(demond)) allergy reaction neomycin (From Neosporin Allergy Unknown Unknown Verified 07/13/24 07:49 Plus PainRelief(demond)) allergy reaction Penicillins Allergy Unknown Unknown Verified 07/13/24 07:49 allergy reaction polymyxin B (From Neosporin Allergy Unknown Unknown Verified 07/13/24 07:49 Plus PainRelief(demond)) allergy reaction pramoxine (From Neosporin Allergy Unknown Unknown Verified 07/13/24 07:49 Plus PainRelief(demond)) allergy reaction Discharge Plan Disposition Patient Disposition: Xfer SNF Condition: Fair Discharge Order Discharge Orders: Discharge Order (Routine); Ordered 07/15/24 Ordered By: Johnathan Macias Follow up Plan Follow up with: Delmar Peñaloza PA [Physician On Site Nurse] - 07/22/24 Prescriptions/Medication Reconciliation: New amiodarone 200 mg Tablet 400 mg PO BID 30 Days Qty: 120 0RF cefdinir 300 mg capsule 300 mg PO BID 4 Days Qty: 8 0RF spironolactone 25 mg tablet 25 mg PO DAILY Qty: 30 0RF Continued nicotine 14 mg/24 hr patch 24 hour 14 mg transdermal DAILY Patient Comments: PLACE 1 PATCH ON THE SKIN DAILY DIRECTED anastrozole 1 mg Tablet 1 mg PO DAILY famotidine 20 mg Tablet 20 mg PO BID nitroglycerin 0.4 mg Tablet, Sublingual 0.4 mg sublingual NEEDED PRN (Reason: Chest Pain) metoprolol succinate 25 mg Tablet Extended Release 24 Hr 25 mg PO DAILY multivitamin with iron-mineral Tablet 1 tab PO DAILY escitalopram oxalate 20 mg Tablet 20 mg PO DAILY rosuvastatin 40 mg Tablet 40 mg PO HS apixaban 5 mg Tablet 5 mg PO BID Arnuity Ellipta 100 mcg/actuation blister with device 100 mcg INHALATION DAILY Patient Comments: INHALE 1 PUFF BY MOUTH EVERY DAY vibegron 75 mg Tablet 75 mg PO DAILY losartan 100 mg Tablet 100 mg PO DAILY Changed furosemide 20 mg Tablet 40 mg PO DAILY 30 Days Qty: 60 0RF Discontinued hydralazine 25 mg tablet 25 mg PO BID Patient Comments: TAKE 1 TABLET BY MOUTH THREE TIMES DAILY Problem Reconciliation Problems Reviewed?: Yes Patient Discharge Instructions Patient Instructions: DI for Pneumonia -- Adult, DI for Atrial Fibrillation Print Language: French Providers Primary Care Provider: Neida Hartman Admit Provider: Josiah Hernandez Attending Provider: Josiah Hernandez
== END 2024-07-15 15:51 | DRG 189 ==
LOC: ICU 07-13 09:46 → 2ND 07-14 09:54
PROVIDERS: Nurse Practitioner Family; Physician Assistant; Student in an Organized Health Care Education/Training Program; Admitting Provider Internal Medicine Adolescent Medicine; PCP Nurse Practitioner Family; Visit Provider Internal Medicine Adolescent Medicine
DX: J96.01 Acute respiratory failure with hypoxia (principal); A41.9 Sepsis, unspecified organism; I21.A1 Myocardial infarction type 2; I50.33 Acute on chronic diastolic (congestive) heart failure; J18.9 Pneumonia, unspecified organism; N17.9 Acute kidney failure, unspecified; J91.8 Pleural effusion in other conditions classified elsewhere; I48.20 Chronic atrial fibrillation, unspecified; E78.5 Hyperlipidemia, unspecified; F17.210 Nicotine dependence, cigarettes, uncomplicated; I11.0 Hypertensive heart disease with heart failure; I12.9 Hypertensive chronic kidney disease with stage 1 through stage 4 chronic kidney disease, or unspecified chronic kidney disease; N18.9 Chronic kidney disease, unspecified; R73.9 Hyperglycemia, unspecified; J44.9 Chronic obstructive pulmonary disease, unspecified; D69.6 Thrombocytopenia, unspecified; C67.9 Malignant neoplasm of bladder, unspecified; Z79.899 Other long term (current) drug therapy; Z86.73 Personal history of transient ischemic attack (TIA), and cerebral infarction without residual deficits; Z79.811 Long term (current) use of aromatase inhibitors; Z79.01 Long term (current) use of anticoagulants
CPT/HCPCS: 71045; 71275; 80053; 81003; 81015; 82962; 83036; 83605; 83735; 83880; 84484; 85007; 85025; 85730; 87070; 87081; 87086; 87205; 87633; 93005; 93306; 94640; 97162; 97166; 97530; J0282; J0696; J1940; J7060; J7613; J7614; J7644; Q9967

== ENCOUNTER 2024-08-02 19:22 | Inpatient (IN) | payer MEDICARE, SELFPAY ==
[2024-08-02] VITALS (9 sets, daily range): BP systolic 119–136; BP diastolic 45–70; PULSE 65–84; RESP 18–21; TEMP 36.7–36.9; O2SAT 85–97; BMI 28.6; BMI 28.5
--- NOTE | 2024-08-02 19:46 | XR_ITS ---
PROCEDURE INFORMATION: Exam: XR Chest Exam date and time: 08/02/2024 7:40 PM Age: 83 years old Clinical indication: Other: Low o2 sat, productive cough TECHNIQUE: Imaging protocol: Radiologic exam of the chest. Views: 2 views. COMPARISON: CR XR CHEST PORTABLE 07/15/2024 9:21 AM FINDINGS: Tubes, catheters and devices: Dual lead pacemaker device is identified. Lungs: Mild interstitial infiltrate within the left lower lobe.Impression. Pleural spaces: Unremarkable. No pleural effusion. No pneumothorax. Heart/Mediastinum: Unremarkable. No cardiomegaly. Bones/joints: Unremarkable. IMPRESSION: Mild interstitial infiltrate within the left lower lobe.
--- NOTE | 2024-08-02 19:52 | ECG_ITS ---
APPROVED REPORT Exam: Resting ECG HR:64 bpm ECG Measurements Heart Rate 64 AXES DC 176 P 36 QRSd 95 QRS -12 QT 503 T 53 QTc 512 Conclusion SINUS RHYTHM INDETERMINATE AXIS PATTERN CONSISTENT WITH PULMONARY DISEASE POSSIBLE INFERIOR MYOCARDIAL INFARCTION , OF INDETERMINATE AGE [30 ms Q WAVE IN II/aVF] ABNORMAL ECG UNCONFIRMED REPORT Electronically signed by : Gia Cherry, 08/03/2024 01:24:50
--- NOTE | 2024-08-02 19:54 | PC.NURSE ---
pt to Xray at this time
[2024-08-02 20:02] LABS: Coronavirus 19, PCR Not Detected (NotDetected); Influenza A, PCR Not Detected (NotDetected); Influenza B, PCR Not Detected (NotDetected)
--- NOTE | 2024-08-02 20:18 | ED_ITS ---
<Statement entered by Gia Cherry MD - 08/02/24 21:50> I was consulted by the EARL, and we discussed the complexity of problems being addressed. I approved the treatment and management plan for this patient's care in the emergency department, thus performing a substantive portion of the medical decision making. Gia Cherry MD Discharge Plan Disposition Chief Complaint: Nausea/Vomiting/Diarrhea Prescriptions Prescriptions: No Action nicotine 14 mg/24 hr patch 24 hour 14 mg transdermal DAILY Patient Comments: PLACE 1 PATCH ON THE SKIN DAILY DIRECTED anastrozole 1 mg Tablet 1 mg PO DAILY famotidine 20 mg Tablet 20 mg PO BID nitroglycerin 0.4 mg Tablet, Sublingual 0.4 mg sublingual NEEDED PRN (Reason: Chest Pain) metoprolol succinate 25 mg Tablet Extended Release 24 Hr 25 mg PO DAILY multivitamin with iron-mineral Tablet 1 tab PO DAILY escitalopram oxalate 20 mg Tablet 20 mg PO DAILY rosuvastatin 40 mg Tablet 40 mg PO HS apixaban 5 mg Tablet 5 mg PO BID vibegron 75 mg Tablet 75 mg PO DAILY losartan 100 mg Tablet 100 mg PO DAILY amiodarone 200 mg Tablet 400 mg PO BID 30 Days Qty: 120 0RF furosemide 20 mg Tablet 40 mg PO DAILY 30 Days Qty: 60 0RF spironolactone 25 mg tablet 25 mg PO DAILY Qty: 30 0RF Trelegy Ellipta 100-62.5-25 mcg Blister With Device 1 inh inhalation DAILY 30 Days Qty: 60 0RF Referrals Follow up/Referrals: Neida Hartman APRN [Primary Care Provider] - See instructions Instructions Patient Instructions: DI for Diarrhea and Traveler's Diarrhea -- Adult, DI for Diarrhea and Traveler's Diarrhea -- Child, DI for Nausea -- Adult, DI for Nausea -- Child Print Language Print Language: Maltese Discharge ED Provider: Gia Cherry General Adult HPI General Chief complaint: Nausea/Vomiting/Diarrhea Stated complaint: V/D,weakness,O2 84-86 Time Seen by Provider: 08/02/24 19:37 Mode of Arrival: Wheelchair Source of Information: Patient and Relative Limitations: No Limitations Description of Symptoms (Recalled from ER Triage Doc. by RN): Pt presents for evaluation of N/V/D that started today that is accompanied with the chills. History of Present Illness HPI narrative: Patient is a 83-year-old female PMHx atrial fibrillation, hypertension, COPD, cardiac arrhythmia, history of respiratory failure, tobacco dependence, pleural effusion, history of bladder cancer, pacemaker who presents to the ED for shortness of breath, hypoxic, vomiting that started today. Related Data Home Medications ?Medication ?Instructions ?Recorded ?Confirmed anastrozole 1 mg tablet 1 mg PO DAILY 07/12/24 07/28/24 apixaban 5 mg tablet 5 mg PO BID 07/12/24 07/28/24 escitalopram oxalate 20 mg tablet 20 mg PO DAILY 07/12/24 07/28/24 famotidine 20 mg tablet 20 mg PO BID 07/12/24 07/28/24 metoprolol succinate 25 mg 25 mg PO DAILY 07/12/24 07/28/24 tablet,extended release 24 hr multivitamin with iron-mineral 1 tab PO DAILY 07/12/24 07/28/24 nicotine 14 mg/24 hr daily 14 mg transdermal DAILY 07/12/24 07/28/24 transdermal patch nitroglycerin 0.4 mg sublingual 0.4 mg sublingual NEEDED PRN 07/12/24 07/28/24 tablet Chest Pain rosuvastatin 40 mg tablet 40 mg PO HS 07/12/24 07/28/24 vibegron 75 mg tablet 75 mg PO DAILY 07/12/24 07/28/24 losartan 100 mg tablet 100 mg PO DAILY 07/13/24 07/28/24 Previous Rx's ?Medication ?Instructions ?Recorded amiodarone 200 mg tablet 400 mg (2 x 200 mg) PO BID 30 days 07/15/24 #120 tabs fluticasone fur. 100 mcg-umeclid 1 inh inhalation DAILY 30 days #60 07/15/24 62.5 mcg-vilant 25 mcg ea inhalat.powder (Trelegy Ellipta) furosemide 20 mg tablet 40 mg (2 x 20 mg) PO DAILY 30 days 07/15/24 #60 tabs spironolactone 25 mg tablet 25 mg PO DAILY #30 tabs 07/15/24 Allergies Allergy/AdvReac Type Severity Reaction Status Date / Time bacitracin (From Neosporin Allergy Unknown Unknown Verified 07/28/24 14:43 Plus PainRelief(demond)) allergy reaction neomycin (From Neosporin Allergy Unknown Unknown Verified 07/28/24 14:43 Plus PainRelief(demond)) allergy reaction Penicillins Allergy Unknown Unknown Verified 07/28/24 14:43 allergy reaction polymyxin B (From Neosporin Allergy Unknown Unknown Verified 07/28/24 14:43 Plus PainRelief(demond)) allergy reaction pramoxine (From Neosporin Allergy Unknown Unknown Verified 07/28/24 14:43 Plus PainRelief(demond)) allergy reaction PFSH PFSH Disclaimer: The information contained in this section may have been updated after the patient was seen, as this information can be updated by other users. Medical History (Updated 07/28/24 @ 14:56 by Ameena Marina RN) Cardiac pacemaker in situ Sepsis Thrombocytopenia Elevated lactic acid level Hyperglycemia Leukocytosis Pleural effusion, left Pulmonary emphysema Acute respiratory failure with hypoxia Bladder cancer Breast cancer History of stroke Rheumatoid arthritis Atrial fibrillation Hypertension COPD (chronic obstructive pulmonary disease) Surgical History H/O transurethral resection of bladder tumor (TURBT) Family History Other No significant family history Social History Smoking Status: Never smoker alcohol intake: never current occupational status: retired Travel in the last 8 weeks: Inside the [place] Have you lived/traveled outside [place] in past 30 days?: No Contact w/someone who lives/traveled outside [place] past 30 days?: No Exposure to someone with infectious disease in past 14 days?: No Do you have a fever (greater than 100.4 F or 38 C)?: No Have you tested positive for COVID-19: No Exposed to someone with COVID-19 in past 14 days?: No Do you have a sore throat?: No Do you have a cough?: No Do you have any weakness?: No Do you have any diarrhea?: No Are you experiencing any unusual bleeding?: No Do you have any muscle aches/pain?: No Do you have any abdominal pain?: No Are you experiencing loss of taste or smell?: No Other Medical History Have you received the Flu Vaccine for this season: No Have you received the Pneumonia Vaccine: No ROS Obtained: Yes Systems reviewed as appropriate & no additional complaints except as documented Physical Exam General General appearance: alert and in no apparent distress Head Head exam: atraumatic and normocephalic Eye Eye exam: Present normal appearance and PERRL; Absent nystagmus ENT ENT exam: Present normal exam Neck Neck exam: Present normal inspection Chest Chest inspection: Present normal inspection and symmetric chest wall rise; Absent tenderness Respiratory Respiratory exam: Present wheezes and other (decreased, cough ) Cardiovascular Cardiovascular exam: Present regular rate Abdominal Exam Abdominal exam: Present soft and normal bowel sounds; Absent tenderness Extremities Exam Extremities exam: Present normal inspection and full ROM Back Exam Back exam: Present normal inspection and full ROM; Absent tenderness Neurological Exam Neurological exam: Present alert and oriented X3 Psychiatric Psychiatric exam: Present normal affect and normal mood Skin Skin exam: Present warm and dry Medical Decision Making Medical Records Screening: Per USPSTF and CDC recommendations, given the prevalence of disease in our region, it is our hospital?s policy to screen for HIV and viral Hepatitis for all patients aged 18 and over and those with ongoing risk factors. Pablo Inquiry Pt receiving controlled substance: No Pablo was queried for this patient: No Vital Signs: 08/02/24 19:37 08/02/24 19:41 08/02/24 20:55 Temperature 98.2 F Temperature Source Oral Pulse Rate 84 Pulse Rate [Right] 68 Respiratory Rate 18 Blood Pressure [Right Arm] 123/48 L Blood Pressure Mean [Right Arm] 73 Blood Pressure Source [Right Arm] Automatic Cuff Blood Pressure Position [Right Arm] Sitting 02 Sat by Pulse Oximetry 85 L 93 L Oxygen Delivery Method Room Air Nasal Cannula Oxygen Flow Rate (LPM) 6 Lab Data Lab Results 08/02/24 19:47: SARS-CoV-2 (PCR) Not detected, Influenza A Untype (PCR) Not detected, Influenza Type B (PCR) Not detected 08/02/24 20:18: VBG pH 7.37, VBG pCO2 42.9, VBG pO2 25.0 L, VBG HCO3 24.1, VBG Total CO2 25.4, VBG O2 Saturation 40.5 L, VBG Base Excess -1.2, VBG Lactic Acid 2.2 H 08/02/24 20:30: WBC 10.9 H, RBC 4.30, Hgb 12.3, Hct 38.3, MCV 89.1, MCH 28.6, MCHC 32.1, RDW 13.8, Plt Count 278, MPV 9.9, Neut % (Auto) 91.3 H, Lymph % (Auto) 2.9 L, [place] % (Auto) 4.7, Eos % (Auto) 0.5, Baso % (Auto) 0.2, Neut # (Auto) 10.0 H, Lymph # (Auto) 0.3 L, [place] # (Auto) 0.5, Eos # (Auto) 0.1, Baso # (Auto) 0.0, Sodium 137, Potassium 4.0, Chloride 98, Carbon Dioxide 30, Anion Gap 13.0, BUN 32 H, Creatinine 2.10 H, Estimated Creat Clear 28, Estimated GFR 23 L, Est GFR ( Amer) 27 L, Glucose 122 H, Calcium 9.1, Total Bilirubin 0.5, AST 36, ALT 27, Alkaline Phosphatase 78, Troponin I < 0.01, NT-Pro-B Natriuret Pep 531 H, Total Protein 8.0 D, Albumin 4.3, Globulin 3.7 H, Albumin/Globulin Ratio 1.2 08/02/24 21:02: Urine Color [place], Urine Appearance Clear, Urine pH 5.0, Ur Specific [place] 1.025, Urine Protein 2+ A, Urine Glucose (UA) 1+, Urine Ketones Trace, Urine Blood 1+ A, Urine Nitrate Positive A, Urine Bilirubin Negative, Urine Urobilinogen 4.0, Ur Leukocyte Esterase 2+ A, Urine RBC 10-20, Urine WBC 20-50, Ur Squamous Epith Cells 3-5, Urine Bacteria 1+, Hyaline Casts 10-20 08/02/24 20:30 08/02/24 20:30 Orders (Tests/Meds): ED MEDICATIONS Generic Name Dose Route Start Last Admin Trade Name Freq PRN Reason Stop Dose Admin Ceftriaxone Sodium 1 gm/ 50 mls @ 100 mls/hr 08/02/24 21:45 Sodium Chloride IV 08/12/24 21:44 Q24H ABIMBOLA Discontinued Medications Generic Name Dose Route Start Last Admin Trade Name Freq PRN Reason Stop Dose Admin Albuterol/Ipratropium 3 ml 08/02/24 20:21 08/02/24 20:54 Ipratropium/Albuterol 3 Ml Neb IH 08/02/24 20:22 3 ml ONCE ONE Administration Ondansetron HCl 4 mg 08/02/24 20:21 08/02/24 20:27 Ondansetron 4mg/2ml Vial IV 08/02/24 20:22 4 mg ONCE ONE Administration ORDERS Category Date Time Status CXR --portable [XR chest portable] Stat Exams 08/02/24 20:18 Ordered Chest XR 2 view (NOT portable) [XR chest 2V] Stat Exams 08/02/24 19:46 Taken BNP [NT Pro Brain Natriuretic Pep.] Stat Lab 08/02/24 20:30 Completed CBC w/Auto Diff [Complete Blood Count Auto Diff] Stat Lab 08/02/24 20:30 Results CMP [Comprehensive Metabolic Panel] Stat Lab 08/02/24 20:30 Completed Rapid PCR Covid and Flu A/B Stat Lab 08/02/24 19:47 Completed Trop I [Troponin I] Stat Lab 08/02/24 20:30 Completed Troponin I Q3H Lab 08/02/24 23:30 Ordered Troponin I Q3H Lab 08/03/24 02:30 Ordered Urinalysis and Microscopic Stat Lab 08/02/24 21:02 Completed Blood Culture Stat Micro 08/02/24 20:30 Received Urine Culture Stat Micro 08/02/24 21:02 Received VBG [Venous Blood Gas] Stat RT 08/02/24 20:18 Completed Medical Decision Narrative: In summary, patient is a 83-year-old female PMHx atrial fibrillation, hypertension, COPD, cardiac arrhythmia, history of respiratory failure, tobacco dependence, pleural effusion, history of bladder cancer, pacemaker who presents to the ED for shortness of breath, hypoxic, vomiting that started today. Patient's son is present and assist with history. He states the patient has been hypoxic in the past. He states the patient was recently admitted for UTI, discharged to half-way for rehab however is experiencing hypoxia at the rehab. Upon initial exam, patient is alert, oriented and cooperative. Patient is 84% on room air, when placed on 3 L nasal cannula she is 93%. physical exam remarkable for decreased lung sounds. Differential diagnosis includes respiratory failure, hypoxia, ACS, COPD exacerbation, infectious process, among others. Initial workup will be conducted with hematologic labs, imaging. Initial inventions include oxygen therapy, DuoNeb, Zofran for nausea. Initial workup reviewed by me. CBC remarkable for WBC 10.9, stable H&H. CMP remarkable for BUN 32, creatinine 2.10. First troponin <0.01. BNP 531. Urinalysis remarkable for blood, nitrites, leuks. I informally interpreted the imaging as right sided pneumonia. Due to patient having HIREN, UTI, new oxygen requirement, right-sided pneumonia will admit to hospital medicine for further evaluation. I discussed this with patient and son she is agreeable to admission at this time. Critical Care Critical Care Time Critical Care Time: No
[2024-08-02] MEDS: ONDANSETRON 4MG/2ML VIAL 4 MG IV (20:27)
[2024-08-02 20:39] LABS: Basophils % 0.2 % (0.1-2.0); Eosinophils # 0.1 K/mm3 (0.0-0.4); Eosinophils % 0.5 % (0.1-12.0); Hematocrit 38.3 % (37.0-47.0); Hemoglobin 12.3 g/dL (12.2-16.2); Lymphocytes # 0.3 K/mm3 (0.7-4.5); Lymphocytes % 2.9 % (10-50); Mean Corpuscular HGB Conc 32.1 g/dL (31.8-35.4); Mean Corpuscular Hemoglobin 28.6 pg (27.0-31.2); Mean Corpuscular Volume 89.1 fl (81-99); Mean Platelet Volume 9.9 fl (7.4-10.4); Monocytes # 0.5 K/mm3 (0.1-1.0); Monocytes % 4.7 % (1.7-9.3); Neutrophils % 91.3 % (37.0-80.0); Platelet Count 278 K/mm3 (142-424); Red Cell Distribution Width 13.8 % (11.5-17.5); White Blood Count 10.9 K/mm3 (4.8-10.8)
[2024-08-02 20:42] LABS: Lactate Venous 2.2 mmol/L (0.4-2.0); VBG Base Excess -1.2 mmol/L (-2.4-2.3); VBG HCO3 24.1 mmol/L (23-30); VBG Oxygen Saturation 40.5 % (50-70); VBG PCO2 42.9 mmol/L (35-51); VBG PH 7.37 mmol/L (7.31-7.41); VBG Total CO2 25.4 mmol/L (23-27)
[2024-08-02 20:44] LABS: MANUAL DIFFERENTIAL MANUAL DIFFERENTIAL (MANUAL DIFF)
[2024-08-02] MEDS: IPRATROPIUM/ALBUTEROL 3 ML NEB IH ×2 (20:54→23:31)
--- NOTE | 2024-08-02 21:04 | PC.NURSE ---
UA sent to lab at this time
[2024-08-02 21:08] LABS: Albumin Level 4.3 g/dl (3.5-5.0); Chloride 98 mmol/L (98-107); Sodium 137 mmol/L (136-145)
[2024-08-02 21:08] LABS: Microscopic, Urine URINE MICROSCOPIC (MICROSCOPIC)
[2024-08-02 21:11] LABS: Appearance,Urine CLEAR (Clear); Blood, Urine 1+ (Negative); Color,Urine ORANGE (Yellow); Glucose,Urine (UA) 1+ (Negative); Ketones,Urine TRACE (Negative); Leukocyte Esterase,Urine 2+ (Negative); Nitrate,Urine POSITIVE (Negative); Protein,Urine 2+ (Negative); Specific Gravity, Urine 1.025 (1.005-1.030)
[2024-08-02 21:11] LABS: Alanine Aminotransferase 27 U/L (12-78); Albumin/Globulin Ratio 1.2 (1.1-1.8); Alkaline Phosphatase 78 U/L (38-126); Aspartate Amino Transferase 36 U/L (14-36); Bilirubin,Total 0.5 mg/dl (0.2-1.3); Blood Urea Nitrogen 32 mg/dl (7-17); Calcium 9.1 mg/dl (8.4-10.2); Carbon Dioxide 30 mmol/L (22.0-30.0); Creatinine Clearance Estimated 28 mL/min (50-200); Estimated Glomerular Filt Rate 23 ml/min (>60); GFR (African American) 27 ML/MIN (>60); Globulin 3.7 g/dL (1.3-3.2); Glucose 122 mg/dl (74-100)
[2024-08-02 21:13] LABS: Bilirubin,Urine Negative (Negative)
[2024-08-02 21:19] LABS: NT Pro Brain Natriuretic Pep. 531 pg/mL (0-450)
[2024-08-02 21:22] LABS: Troponin I < 0.01 ng/ml (0.00-0.034)
[2024-08-02 21:26] LABS: Bacteria,Urine 1+ /lpf; WBC,Urine 20-50 #/hpf (0-3)
--- NOTE | 2024-08-02 21:27 | PC.NURSE ---
rounded on pt at this time. pt given warm blanket. voices no needs. call light in reach. family at bedside.
--- NOTE | 2024-08-02 21:45 | PC.NURSE ---
called HS for bed at this time. pt being admitted to hospitalist for UTI, IHREN, new O2 req, and possible pna
[2024-08-02] MEDS: CEFTRIAXONE SODIUM 1 GM in 0.9 % SODIUM CHLORIDE 50 ML IV (21:49)
--- NOTE | 2024-08-02 22:01 | P.HP_ITS ---
<Statement entered by Johnathan Macias MD - 08/03/24 22:59> Personally evaluated patient and agree with plan of care as outlined by the ANIMAL CARE PROVIDER. History of Present Illness *Admission Date: 08/02/24 *Reason for visit:: Shortness of breath *History of present illness: The patient is an 83-year-old female with a past medical history of atrial fibrillation, hypertension, COPD, cardiac arrhythmia (pacemaker-dependent), tobacco dependence, prior respiratory failure, pleural effusion, and bladder cancer, who presented to the emergency department (ED) with shortness of breath, hypoxia, and vomiting starting today. Her son, present at the bedside, reports a recent admission for a urinary tract infection (UTI) with discharge to a shelter for rehab, where she developed hypoxia. She has a history of hypoxia per son. In the ED, she was alert, oriented, and cooperative. Initial SpO2 was 84% on room air, improving to 93% on 3L nasal cannula. Exam was notable for decreased lung sounds bilaterally. Labs revealed leukocytosis (WBC 10.9, neutrophilia 91.3%), acute kidney injury (Cr 2.10, BUN 32, eGFR 23), elevated BNP (531), and urinalysis suggestive of UTI (nitrites, leukocytes, blood). VBG showed hypoxia (pO2 25.0, O2 sat 40.5%) with mild lactic acidosis (lactic acid 2.2). Troponin was <0.01. SARS-CoV-2 and influenza PCRs were negative. Chest imaging, initially interpreted as right-sided pneumonia by the ED provider, was finalized as a mild interstitial infiltrate in the left lower lobe per radiology read. Differential diagnosis includes interstitial lung process (e.g., pulmonary edema, atypical infection), UTI with sepsis, COPD exacerbation, and acute respiratory failure; acute coronary syndrome was ruled out by troponin. ED interventions included oxygen therapy (3L NC), DuoNeb for respiratory symptoms, and Zofran for vomiting. Given new oxygen requirement, HIREN, active UTI, and interstitial lung findings in a frail patient with significant cardiopulmonary comorbidities, admission to hospital medicine was deemed necessary. The plan was discussed with the patient and son, who agreed to inpatient care. [facility] Disclaimer: The information contained in this section may have been updated after the patient was seen, as this information can be updated by other users. Medical History Cardiac pacemaker in situ Sepsis Thrombocytopenia Elevated lactic acid level Hyperglycemia Leukocytosis Pleural effusion, left Pulmonary emphysema Acute respiratory failure with hypoxia Bladder cancer Breast cancer History of stroke Rheumatoid arthritis Atrial fibrillation Hypertension COPD (chronic obstructive pulmonary disease) Surgical History H/O transurethral resection of bladder tumor (TURBT) Family History Other No significant family history Social History Smoking Status: Former smoker alcohol intake: never current occupational status: retired Travel in the last 8 weeks: Inside the [place] Have you lived/traveled outside US in past 30 days?: No Contact w/someone who lives/traveled outside US past 30 days?: No Exposure to someone with infectious disease in past 14 days?: No Do you have a fever (greater than 100.4 F or 38 C)?: No Have you tested positive for COVID-19: No Exposed to someone with COVID-19 in past 14 days?: No Do you have a sore throat?: No Do you have a cough?: Yes Do you have any weakness?: No Are you experiencing any nausea/vomitting?: No Do you have any diarrhea?: No Are you experiencing any unusual bleeding?: No Do you have any muscle aches/pain?: No Do you have any abdominal pain?: No Are you experiencing loss of taste or smell?: No Other Medical History Have you received the Flu Vaccine for this season: No Have you received the Pneumonia Vaccine: No Review of Systems Review of Systems Review of systems (narrative): 13 point review of systems negative except as listed in HPI Meds Home Medications and Allergies Home Medications ?Medication ?Instructions ?Recorded ?Confirmed ?Type anastrozole 1 mg tablet 1 mg PO DAILY 07/12/24 08/02/24 History apixaban 5 mg tablet 5 mg PO BID 07/12/24 08/02/24 History escitalopram oxalate 20 mg tablet 20 mg PO DAILY 07/12/24 08/02/24 History famotidine 20 mg tablet 20 mg PO BID 07/12/24 08/02/24 History metoprolol succinate 25 mg 25 mg PO DAILY 07/12/24 08/02/24 History tablet,extended release 24 hr multivitamin with iron-mineral 1 tab PO DAILY 07/12/24 08/02/24 History nitroglycerin 0.4 mg sublingual 0.4 mg sublingual NEEDED PRN 07/12/24 08/02/24 History tablet Chest Pain rosuvastatin 40 mg tablet 40 mg PO HS 07/12/24 08/02/24 History vibegron 75 mg tablet 75 mg PO DAILY 07/12/24 08/02/24 History losartan 100 mg tablet 100 mg PO DAILY 07/13/24 08/02/24 History amiodarone 200 mg tablet 400 mg (2 x 200 mg) PO BID 30 days 07/15/24 08/02/24 Rx #120 tabs fluticasone fur. 100 mcg-umeclid 1 inh inhalation DAILY 30 days #60 07/15/24 08/02/24 Rx 62.5 mcg-vilant 25 mcg ea inhalat.powder (Trelegy Ellipta) furosemide 20 mg tablet 40 mg (2 x 20 mg) PO DAILY 30 days 07/15/24 08/02/24 Rx #60 tabs spironolactone 25 mg tablet 25 mg PO DAILY #30 tabs 07/15/24 08/02/24 Rx fluticasone furoate 100 100 mcg inhalation DAILY 08/02/24 08/02/24 History mcg/actuation blister powder for inhalation (Arnuity Ellipta) New Prescriptions to Start Prescriptions: Allergies Allergy/AdvReac Type Severity Reaction Status Date / Time bacitracin (From Neosporin Allergy Unknown Unknown Verified 07/28/24 14:43 Plus PainRelief(demond)) allergy reaction neomycin (From Neosporin Allergy Unknown Unknown Verified 07/28/24 14:43 Plus PainRelief(demond)) allergy reaction Penicillins Allergy Unknown Unknown Verified 07/28/24 14:43 allergy reaction polymyxin B (From Neosporin Allergy Unknown Unknown Verified 07/28/24 14:43 Plus PainRelief(demond)) allergy reaction pramoxine (From Neosporin Allergy Unknown Unknown Verified 07/28/24 14:43 Plus PainRelief(demond)) allergy reaction Exam Data for Last 24 hours Vital signs and Labs for Last 24 Hours: Temp Pulse Resp BP Pulse Ox O2 Del Method O2 Flow Rate 98.2 F 84 18 123/48 L 93 L Nasal Cannula 6 08/02/24 19:37 08/02/24 20:55 08/02/24 19:37 08/02/24 19:37 08/02/24 19:41 08/02/24 19:41 08/02/24 19:41 Laboratory Results - last 24 hr 08/02/24 19:47: SARS-CoV-2 (PCR) Not detected, Influenza A Untype (PCR) Not detected, Influenza Type B (PCR) Not detected 08/02/24 20:18: VBG pH 7.37, VBG pCO2 42.9, VBG pO2 25.0 L, VBG HCO3 24.1, VBG Total CO2 25.4, VBG O2 Saturation 40.5 L, VBG Base Excess -1.2, VBG Lactic Acid 2.2 H 08/02/24 20:30: WBC 10.9 H, RBC 4.30, Hgb 12.3, Hct 38.3, MCV 89.1, MCH 28.6, MCHC 32.1, RDW 13.8, Plt Count 278, MPV 9.9, Neut % (Auto) 91.3 H, Lymph % (Auto) 2.9 L, Haakon % (Auto) 4.7, Eos % (Auto) 0.5, Baso % (Auto) 0.2, Neut # (Auto) 10.0 H, Lymph # (Auto) 0.3 L, Haakon # (Auto) 0.5, Eos # (Auto) 0.1, Baso # (Auto) 0.0, Sodium 137, Potassium 4.0, Chloride 98, Carbon Dioxide 30, Anion Gap 13.0, BUN 32 H, Creatinine 2.10 H, Estimated Creat Clear 28, Estimated GFR 23 L, Est GFR ( Amer) 27 L, Glucose 122 H, Calcium 9.1, Total Bilirubin 0.5, AST 36, ALT 27, Alkaline Phosphatase 78, Troponin I < 0.01, NT-Pro-B Natriuret Pep 531 H, Total Protein 8.0 D, Albumin 4.3, Globulin 3.7 H, Albumin/Globulin Ratio 1.2 08/02/24 21:02: Urine Color Kerr, Urine Appearance Clear, Urine pH 5.0, Ur Specific Grayson 1.025, Urine Protein 2+ A, Urine Glucose (UA) 1+, Urine Ketones Trace, Urine Blood 1+ A, Urine Nitrate Positive A, Urine Bilirubin Negative, Urine Urobilinogen 4.0, Ur Leukocyte Esterase 2+ A, Urine RBC 10-20, Urine WBC 20-50, Ur Squamous Epith Cells 3-5, Urine Bacteria 1+, Hyaline Casts 10-20 I & O for Last 24 hours: Intake & Output 07/30/24 07/31/24 08/01/24 08/02/24 23:59 23:59 23:59 23:59 Weight 83.007 kg Constitutional Constitutional: no acute distress *Routine HEENT Exam Head: Present normocephalic Eye: Present EOMI and PERRL ENT: Present mucous membranes moist *Routine Neck Exam Neck: Present supple; Absent lymphadenopathy *Routine Respiratory Exam Respiratory: Present CTA bilaterally *Routine Cardiovascular Exam Cardiovascular: Present RRR *Routine Abdominal Exam Abdominal: Present soft and normoactive bowel sounds; Absent tenderness *Routine Rectal Exam Rectal:: deferred *Routine Genitalia Exam Genitalia:: deferred *Routine Extremities Exam Extremities: Absent cyanosis, clubbing or edema *Routine Skin Exam Skin: Present warm; Absent rash *Routine Neurological Exam Neurological: Present alert and oriented X3 Assessment and Plan *Assessment and plan (1) UTI (urinary tract infection): Status: Acute Category: Medical Code(s): N39.0 - Urinary tract infection, site not specified (2) Cardiac pacemaker in situ: Status: Acute Category: Medical Code(s): Z95.0 - Presence of cardiac pacemaker (3) Pleural effusion, left: Status: Acute Category: Medical Code(s): J90 - Pleural effusion, not elsewhere classified (4) Pulmonary emphysema: Status: Acute Category: Medical Code(s): J43.9 - Emphysema, unspecified (5) Acute respiratory failure with hypoxia: Status: Acute Category: Medical Code(s): J96.01 - Acute respiratory failure with hypoxia (6) Atrial fibrillation: Status: Acute Qualifiers: Atrial fibrillation type: paroxysmal Qualified Code(s): I48.0 - Paroxysmal atrial fibrillation Category: Medical Code(s): I48.91 - Unspecified atrial fibrillation (7) COPD (chronic obstructive pulmonary disease): Status: Acute Qualifiers: COPD type: unspecified COPD Qualified Code(s): J44.9 - Chronic obstructive pulmonary disease, unspecified Category: Medical Code(s): J44.9 - Chronic obstructive pulmonary disease, unspecified (8) Tobacco dependence: Status: Acute Category: Medical Code(s): F17.200 - Nicotine dependence, unspecified, uncomplicated Plan * Hypoxia and respiratory distress * Pertinent Info: SpO2 84% on RA, 93% on 3L NC; VBG pO2 25.0, O2 sat 40.5%, pCO2 42.9, lactic acid 2.2. CXR shows mild left lower lobe interstitial infiltrate. BNP 531 suggests possible pulmonary edema; decreased lung sounds noted. Hx of COPD and prior respiratory failure. * Continue 3L NC, titrate to SpO2 >90%; monitor RR and work of breathing q4h. * DuoNeb (albuterol/ipratropium) q6h for bronchodilation, started in ED. * Order ABG if hypoxia worsens to assess for hypercapnia (COPD risk). * Chest CT if infiltrate etiology unclear (e.g., infection vs. edema) after diuresis trial. * Telemetry for arrhythmia monitoring given pacemaker and A-fib history. * IV ceftriaxone, p.o. azithromycin * Possible pulmonary edema (CHF exacerbation) * Pertinent Info: BNP 531, interstitial infiltrate, hypoxia, A-fib history; no overt CHF signs (e.g., edema, JVD) reported, but HIREN (Cr 2.10) suggests fluid overload risk. Troponin <0.01 rules out ACS. * Hold diuresis due to HIREN * Echocardiogram to assess EF and diastolic function (prior unknown). * Strict I/Os, daily weights; hold if HIREN worsens or BP drops. * Urinary tract infection (UTI) with possible sepsis * Pertinent Info: UA with nitrites, leukocytes, blood, 20-50 WBCs; recent UTI admission. WBC 10.9, neutrophilia (91.3%), lactic acid 2.2 suggest early sepsis. Vomiting and HIREN (BUN 32, Cr 2.10) as systemic signs. * Start ceftriaxone 1 g IV q24h (renal-adjusted, eGFR 23) for complicated UTI; await urine culture. * Blood cultures x2 to rule out bacteremia. * IV fluids (NS 500 mL bolus, then 100 mL/h) cautiously given HIREN; monitor for overload. * Trend lactate q6h until <2.0; escalate to ICU if sepsis worsens (e.g., lactate >4, hypotension). * Acute kidney injury (HIREN) * Pertinent Info: Cr 2.10, BUN 32, eGFR 23; baseline unknown but likely worse than prior (recent UTI admission). UA suggests infection contribution; BNP 531 and vomiting raise prerenal vs. intrinsic concerns. * Monitor Cr/BUN q12h, urine output (dalton if needed); goal >0.5 mL/kg/h. * Adjust meds for eGFR 23 (e.g., ceftriaxone); avoid nephrotoxins (e.g., NSAIDs). * Renal ultrasound if no improvement to rule out obstruction (bladder cancer hx). * Nephrology consult if Cr rises further or oliguria develops. * COPD (chronic, possible exacerbation) * Pertinent Info: Hx of COPD, tobacco dependence; hypoxia and infiltrate could reflect exacerbation, though no wheezing reported. VBG pCO2 42.9 (normal now). * Continue DuoNeb q6h; add prednisone 40 mg PO daily x 5 days if exacerbation confirmed (e.g., wheezing, CO2 retention). * Assess home inhaler regimen (e.g., LABA/LAMA); restart once stable. * Smoking cessation counseling with nicotine patch offered. * Chronic comorbidities * Atrial Fibrillation/Cardiac Arrhythmia: Pacemaker in place; no ECG provided, but monitor rate/rhythm. Continue home meds (e.g., beta-james, anticoagulation) unless HIREN contraindicates. * Hypertension: BP stable; adjust meds if fluid status shifts. * Bladder Cancer: No recurrence signs; monitor UA for malignancy clues (blood present). * Pleural Effusion Hx: CXR without effusion now; reassess if hypoxia persists. * Supportive care * Zofran 4 mg IV q8h PRN vomiting (started in ED). * DVT prophylaxis: Heparin 5000 units SC BID (renal-adjusted). * NPO initially due to vomiting; advance diet as tolerated once nausea resolves. * Family (son) updated; confirm goals of care given frailty. Disposition: The patient will be admitted to the medical floor under the hospitalist service for management of hypoxia (possible pulmonary edema vs. atypical infection), UTI with early sepsis, HIREN, and COPD monitoring. She requires inpatient care for oxygen titration, diuresis, antibiotics, and renal stabilization, with an anticipated length of stay of 4-7 days, pending respiratory improvement (SpO2 >90% on RA), infection resolution, and Cr trend. ICU transfer if hypoxia worsens (e.g., O2 >6L, RR >30) or sepsis escalates (e.g., lactate >4, shock). Discharge planning will coordinate with shelter for rehab needs and outpatient follow-up (cardiology, pulmonary). Goals of care discussion with son if clinical decline occurs.
--- NOTE | 2024-08-02 22:05 | PC.NURSE ---
report called to Merrill MEJIA at this time.
[2024-08-02 22:15] LABS: Eosinophils % 1 % (0-3); Lymphocytes % 11 % (10-50); Neutrophils % 88 % (42-76); Total Cells Counted 100
[2024-08-02 22:16] LABS: Platelet Estimate Normal; RBC Morphology Normal
--- NOTE | 2024-08-02 22:20 | PC.NURSE ---
Patient arrived to floor via stretcher from ED at 22:17.
[2024-08-02] MEDS: 0.9 % SODIUM CHLORIDE 1000ML 1,000 ML 50 ML IV (22:41)
[2024-08-02] MEDS: AZITHROMYCIN 250MG TABLET 500 MG PO (22:41)
[2024-08-02 23:46] LABS: Troponin I 0.02 ng/ml (0.00-0.034)
[2024-08-03] VITALS (13 sets, daily range): BP systolic 82–149; BP diastolic 43–63; PULSE 60–87; RESP 18; TEMP 36.6–37.2; O2SAT 88–97; BMI 28.7
[2024-08-03 00:28] LABS: Reflex Lactic Add Lactic Reflex
[2024-08-03 00:56] LABS: Lactic Acid Follow Up (RFLX 1) 2.2 mmol/L (0.7-2.1)
[2024-08-03 02:41] LABS: Reflex Lactic (2 hrs) Add Lactic Reflex
[2024-08-03 03:00] LABS: Troponin I < 0.01 ng/ml (0.00-0.034)
[2024-08-03 03:15] LABS: Lactic Acid Follow up (RFLX 2) 3.3 mmol/L (0.7-2.1)
[2024-08-03] MEDS: IPRATROPIUM/ALBUTEROL 3 ML NEB IH ×2 (06:27→12:57)
[2024-08-03 07:10] LABS: Basophils % 0.2 % (0.1-2.0); Eosinophils % 0.1 % (0.1-12.0); Hematocrit 32.1 % (37.0-47.0); Lymphocytes # 0.8 K/mm3 (0.7-4.5); Lymphocytes % 5.5 % (10-50); Mean Corpuscular HGB Conc 32.1 g/dL (31.8-35.4); Mean Corpuscular Hemoglobin 28.6 pg (27.0-31.2); Mean Corpuscular Volume 89.2 fl (81-99); Mean Platelet Volume 10.6 fl (7.4-10.4); Monocytes # 0.8 K/mm3 (0.1-1.0); Monocytes % 5.6 % (1.7-9.3); Neutrophils # 13.1 K/mm3 (1.8-7.8); Neutrophils % 88.2 % (37.0-80.0); Platelet Count 245 K/mm3 (142-424); Red Cell Distribution Width 13.8 % (11.5-17.5); White Blood Count 14.8 K/mm3 (4.8-10.8)
[2024-08-03 07:18] LABS: Hemoglobin 10.3 g/dL (12.2-16.2)
[2024-08-03 07:40] LABS: Anion Gap 12.3 mEq/L (5-15); Blood Urea Nitrogen 37 mg/dl (7-17); Calcium 8.5 mg/dl (8.4-10.2); Carbon Dioxide 27 mmol/L (22.0-30.0); Chloride 99 mmol/L (98-107); Creatinine Clearance Estimated 28 mL/min (50-200); Estimated Glomerular Filt Rate 23 ml/min (>60); GFR (African American) 27 ML/MIN (>60); Glucose 118 mg/dl (74-100); Magnesium 1.8 mg/dl (1.6-2.3); Potassium 4.3 mmoL/L (3.5-5.1); Sodium 134 mmol/L (136-145)
--- NOTE | 2024-08-03 08:06 | HMH.PHAINT1 ---
Pharmacy Intervention Comments: MEDICATION RECONCILIATION COMPLETED ON PATIENT USING EXTERNAL FILL HISTORY FROM PHARMACY AND DISCHARGE SUMMARY FROM PREVIOUS ADMISSION. -NICK CHRIS, LUISD
[2024-08-03 08:40] LABS: Lactic Acid 3.3 mmol/L (0.7-2.1)
[2024-08-03] MEDS: APIXABAN 5MG TABLET 5 MG PO (10:15)
[2024-08-03] MEDS: AMIODARONE 200MG TABLET 400 MG PO ×2 (10:15→20:31)
[2024-08-03] MEDS: CITALOPRAM 40MG TABLET 40 MG PO (10:15)
[2024-08-03] MEDS: FAMOTIDINE 20MG TABLET 20 MG PO ×2 (10:15→20:31)
[2024-08-03] MEDS: AZITHROMYCIN 250MG TABLET 250 MG PO (10:15)
[2024-08-03] MEDS: 0.9 % SODIUM CHLORIDE 1000ML 500 ML IV (10:16)
--- NOTE | 2024-08-03 10:37 | CT_ITS ---
FINAL REPORT TECHNIQUE: Axial imaging of the chest was obtained without contrast. Reformatted images were also obtained and reviewed.This study was performed with techniques to keep radiation doses as low as reasonably achievable, (ALARA). Individualized dose reduction technique using automated exposure control or adjustment of mA and/or kV according to the patient's size were employed. CLINICAL HISTORY: hypoxia COMPARISON: 07/12/2024, 06/29/2024 FINDINGS: There is no axillary adenopathy. Heart size is normal. There is no pericardial or pleural effusion. There is further left lower lobe consolidation consistent with pneumonia and volume loss. There is a right lower lobe nodule on image 41 of series 2 measuring 7 mm which is stable from 06/29/2024. This was obscured by infiltrate on most recent exam. Right lower lobe infiltrate has resolved. There is borderline precarinal adenopathy which is stable. Limited imaging of the upper abdomen demonstrates a nonspecific left adrenal nodule. IMPRESSION: Significant progression of left lower lobe pneumonia. Underlying mass not excluded. Recommend continued CT follow-up in 2-3-month time, ideally with contrast. Stable right lower lobe nodule. Although, interval between prior exams is short. Recommend continued follow-up. Reviewed, Interpreted and Dictated by Riaz Meyer MD Transcribed by Angela Hurtado Authenticated and . [facility]
--- NOTE | 2024-08-03 12:46 | SW/DCPLANNER ---
Addendum entered by Lucila Jones 08/04/24 12:44: I have updated patient's son regarding discharge plans of home health services. Addendum entered by Lucila Jones 08/04/24 10:37: I spoke w/ patient regarding plans once medically stable for discharge. PT/OT evaluated patient and recommended home w/ home health services. Patient stated that she resides at home alone and feels safe to return home at time of discharge. Patient is agreeable to home health services and prefers to resume services w/ [facility]. Patient also has a rolling walker at home. Patient is currently wearing O2 but does not have home O2. Patient stated that if home O2 is needed at discharge she is agreeable to [facility]. CM will continue to follow up w/ this patient until medically stable for discharge. Discharge date is unknown at this time. Original Note: This patient discharged from [facility] on 07/30/24 to return home. Per Em w/ [facility] services were suppose to start today. PT//OT has been ordered to evaluate patient today. Once evaluation is completed I will speak w/ patient and family regarding discharge planning.
--- NOTE | 2024-08-03 12:49 | EXP.PULM.CON ---
History of Present Illness History of present illness: Ms. Arellano is a 83-year-old female with reported history of atrial fibrillation hypertension COPD cardiac dysrhythmias bladder cancer presented with fever worsening respiratory distress hypoxia vomiting. Patient upon presentation to ED needing new oxygen requirements pulmonary was called for further evaluation and management. Patient predominant complaint today include abdominal discomfort, nausea and vomiting. Denies any obvious choking episodes PFSH PFS Disclaimer: The information contained in this section may have been updated after the patient was seen, as this information can be updated by other users. Medical History Cardiac pacemaker in situ Sepsis Thrombocytopenia Elevated lactic acid level Hyperglycemia Leukocytosis Pleural effusion, left Pulmonary emphysema Acute respiratory failure with hypoxia Bladder cancer Breast cancer History of stroke Rheumatoid arthritis Atrial fibrillation Hypertension COPD (chronic obstructive pulmonary disease) Surgical History H/O transurethral resection of bladder tumor (TURBT) Family History Other No significant family history Social History Smoking Status: Former smoker alcohol intake: never current occupational status: retired Travel in the last 8 weeks: Inside the [place] Have you lived/traveled outside US in past 30 days?: No Contact w/someone who lives/traveled outside US past 30 days?: No Exposure to someone with infectious disease in past 14 days?: No Do you have a fever (greater than 100.4 F or 38 C)?: No Have you tested positive for COVID-19: No Exposed to someone with COVID-19 in past 14 days?: No Do you have a sore throat?: No Do you have a cough?: Yes Do you have any weakness?: No Are you experiencing any nausea/vomitting?: No Do you have any diarrhea?: No Are you experiencing any unusual bleeding?: No Do you have any muscle aches/pain?: No Do you have any abdominal pain?: No Are you experiencing loss of taste or smell?: No Review of Systems Constitutional Constitutional: Reports anorexia, Reports body ache(s) and Reports fatigue Eyes Eyes: Denies eye discharge, Denies dry eyes, Denies irritation and Denies itchy eyes ENT Ears, Nose, Mouth, and Throat: Denies epistaxis, Denies facial pain, Denies lip swelling and Denies throat swelling *Cardiovascular Cardiovascular: Reports dyspnea and Reports dyspnea on exertion *Respiratory Respiratory: Reports change in phlegm color, Reports chest congestion, Reports cough, Reports dyspnea, Reports dyspnea on exertion, Reports excessive phlegm production and Denies wheezing *Gastrointestinal Gastrointestinal: Denies abdominal pain, Reports belching, Reports bloating, Denies cramping and Reports vomiting *Musculoskeletal Musculoskeletal: Reports back pain, Reports myalgias and Reports other (No small joint swelling or Pain) Psychiatric Psychiatric: Denies homicidal ideation and Denies suicidal ideation Endocrine Endocrine: Reports fatigue and Denies heat intolerance Hematologic/Lymphatic Hematologic/Lymphatic: Denies easy bleeding and Denies lymphadenopathy Allergic/Immunologic Allergic/Immunologic: Denies itchy eyes, Denies lip swelling, Denies throat swelling and Denies wheezing Pulmonology Exam Inpatient Vital signs and Labs for Last 24 Hours: Temp Pulse Resp BP Pulse Ox O2 Del Method O2 Flow Rate 98.5 F 64 18 112/43 L 88 L Room Air 3.5 08/03/24 07:48 08/03/24 10:37 08/03/24 07:48 08/03/24 10:37 08/03/24 09:58 08/03/24 09:58 08/03/24 09:00 Laboratory Results - last 24 hr 08/02/24 19:47: SARS-CoV-2 (PCR) Not detected, Influenza A Untype (PCR) Not detected, Influenza Type B (PCR) Not detected 08/02/24 20:18: VBG pH 7.37, VBG pCO2 42.9, VBG pO2 25.0 L, VBG HCO3 24.1, VBG Total CO2 25.4, VBG O2 Saturation 40.5 L, VBG Base Excess -1.2, VBG Lactic Acid 2.2 H 08/02/24 20:30: WBC 10.9 H, RBC 4.30, Hgb 12.3, Hct 38.3, MCV 89.1, MCH 28.6, MCHC 32.1, RDW 13.8, Plt Count 278, MPV 9.9, Neut % (Auto) 91.3 H, Lymph % (Auto) 2.9 L, [place] % (Auto) 4.7, Eos % (Auto) 0.5, Baso % (Auto) 0.2, Neut # (Auto) 10.0 H, Lymph # (Auto) 0.3 L, [place] # (Auto) 0.5, Eos # (Auto) 0.1, Baso # (Auto) 0.0, Total Counted 100, Neutrophils % (Manual) 88 H, Lymphocytes % (Manual) 11, Eosinophils % (Manual) 1, Platelet Estimate Normal, RBC Morphology Normal, Sodium 137, Potassium 4.0, Chloride 98, Carbon Dioxide 30, Anion Gap 13.0, BUN 32 H, Creatinine 2.10 H, Estimated Creat Clear 28, Estimated GFR 23 L, Est GFR ( Amer) 27 L, Glucose 122 H, Calcium 9.1, Total Bilirubin 0.5, AST 36, ALT 27, Alkaline Phosphatase 78, Troponin I < 0.01, NT-Pro-B Natriuret Pep 531 H, Total Protein 8.0 D, Albumin 4.3, Globulin 3.7 H, Albumin/Globulin Ratio 1.2 08/02/24 21:02: Urine Color [place], Urine Appearance Clear, Urine pH 5.0, Ur Specific Nelson 1.025, Urine Protein 2+ A, Urine Glucose (UA) 1+, Urine Ketones Trace, Urine Blood 1+ A, Urine Nitrate Positive A, Urine Bilirubin Negative, Urine Urobilinogen 4.0, Ur Leukocyte Esterase 2+ A, Urine RBC 10-20, Urine WBC 20-50, Ur Squamous Epith Cells 3-5, Urine Bacteria 1+, Hyaline Casts 10-20 08/02/24 23:20: Troponin I 0.02 08/03/24 00:30: Lactate 2.2 H 08/03/24 02:20: Troponin I < 0.01 08/03/24 02:50: Lactate 3.3 H 08/03/24 06:15: WBC 14.8 H D, RBC 3.60 L, Hgb 10.3 L D, Hct 32.1 L, MCV 89.2, MCH 28.6, MCHC 32.1, RDW 13.8, Plt Count 245, MPV 10.6 H, Neut % (Auto) 88.2 H, Lymph % (Auto) 5.5 L, [place] % (Auto) 5.6, Eos % (Auto) 0.1, Baso % (Auto) 0.2, Neut # (Auto) 13.1 H, Lymph # (Auto) 0.8, [place] # (Auto) 0.8, Eos # (Auto) 0.0, Baso # (Auto) 0.0, Sodium 134 L, Potassium 4.3, Chloride 99, Carbon Dioxide 27, Anion Gap 12.3, BUN 37 H, Creatinine 2.10 H, Estimated Creat Clear 28, Estimated GFR 23 L, Est GFR ( Amer) 27 L, Glucose 118 H, Calcium 8.5, Magnesium 1.8 08/03/24 08:09: Lactate 3.3 H I & O for Labs for Last 24 Hours: Intake & Output 07/31/24 08/01/24 08/02/24 08/03/24 23:59 23:59 23:59 23:59 Intake Total 440 / 440 Output Total 0 / 0 Balance 440 / 440 Weight 181 lb 14.102 oz 183 lb Microbiology Reports for the Last 24 Hours: Microbiology 08/03/24 00:10 Sputum - Expectorated Sputum Gram Stain - Final Constitutional: Present moderate distress Head: Present normocephalic and atraumatic ENT: Present normal exam, normal oropharynx and mucous membranes moist Neck: Present normal inspection and full ROM Respiratory: Present diminished air movement and able to speak in complete sentences; Absent respiratory distress, rhonchi or wheezes Cardiac: Present S1/S2, Tachycardia and radial pulses present GI: Present soft and distention; Absent tenderness or guarding Rectal (female): Present deferred (female): Present deferred Skin: Present intact; Absent cyanosis or jaundice Neuro: Present alert, awake and oriented x 3 Extremities: Present normal inspection; Absent clubbing or cyanosis Psychiatric: Present normal affect and cooperative Meds Home Medications and Allergies Home Medications ?Medication ?Instructions ?Recorded ?Confirmed ?Type anastrozole 1 mg tablet 1 mg PO DAILY 07/12/24 08/02/24 History apixaban 5 mg tablet 5 mg PO BID 07/12/24 08/02/24 History escitalopram oxalate 20 mg tablet 20 mg PO DAILY 07/12/24 08/02/24 History famotidine 20 mg tablet 20 mg PO BID 07/12/24 08/02/24 History metoprolol succinate 25 mg 25 mg PO DAILY 07/12/24 08/02/24 History tablet,extended release 24 hr nitroglycerin 0.4 mg sublingual 0.4 mg sublingual Q5MINP PRN Chest 07/12/24 08/03/24 History tablet Pain rosuvastatin 40 mg tablet 40 mg PO HS 07/12/24 08/03/24 History vibegron 75 mg tablet 75 mg PO DAILY 07/12/24 08/02/24 History losartan 100 mg tablet 100 mg PO DAILY 07/13/24 08/02/24 History fluticasone fur. 100 mcg-umeclid 1 inh inhalation DAILY 30 days #60 07/15/24 08/02/24 Rx 62.5 mcg-vilant 25 mcg ea inhalat.powder (Trelegy Ellipta) furosemide 20 mg tablet 40 mg (2 x 20 mg) PO DAILY 30 days 07/15/24 08/02/24 Rx #60 tabs spironolactone 25 mg tablet 25 mg PO DAILY #30 tabs 07/15/24 08/02/24 Rx amiodarone 400 mg tablet 400 mg PO BID 08/03/24 08/03/24 History New Prescriptions to Start Prescriptions: Allergies Allergy/AdvReac Type Severity Reaction Status Date / Time bacitracin (From Neosporin Allergy Unknown Unknown Verified 07/28/24 14:43 Plus PainRelief(demond)) allergy reaction neomycin (From Neosporin Allergy Unknown Unknown Verified 07/28/24 14:43 Plus PainRelief(demond)) allergy reaction Penicillins Allergy Unknown Unknown Verified 07/28/24 14:43 allergy reaction polymyxin B (From Neosporin Allergy Unknown Unknown Verified 07/28/24 14:43 Plus PainRelief(demond)) allergy reaction pramoxine (From Neosporin Allergy Unknown Unknown Verified 07/28/24 14:43 Plus PainRelief(demond)) allergy reaction Results Laboratory Findings 08/03/24 06:15 08/03/24 12:50 Abnormal lab findings: Abnormal Labs 08/02/24 08/02/24 08/02/24 20:18 20:30 21:02 WBC 10.9 H RBC Hgb Hct MPV Neut % (Auto) 91.3 H Lymph % (Auto) 2.9 L Neut # (Auto) 10.0 H Lymph # (Auto) 0.3 L Neutrophils % (Manual) 88 H VBG pO2 25.0 L VBG O2 Saturation 40.5 L VBG Lactic Acid 2.2 H Sodium BUN 32 H Creatinine 2.10 H Estimated GFR 23 L Est GFR ( Amer) 27 L Glucose 122 H Lactate NT-Pro-B Natriuret Pep 531 H Globulin 3.7 H Urine Protein 2+ A Urine Blood 1+ A Urine Nitrate Positive A Ur Leukocyte Esterase 2+ A 08/03/24 08/03/24 08/03/24 00:30 02:50 06:15 WBC 14.8 H D RBC 3.60 L Hgb 10.3 L D Hct 32.1 L MPV 10.6 H Neut % (Auto) 88.2 H Lymph % (Auto) 5.5 L Neut # (Auto) 13.1 H Lymph # (Auto) Neutrophils % (Manual) VBG pO2 VBG O2 Saturation VBG Lactic Acid Sodium 134 L BUN 37 H Creatinine 2.10 H Estimated GFR 23 L Est GFR ( Amer) 27 L Glucose 118 H Lactate 2.2 H 3.3 H NT-Pro-B Natriuret Pep Globulin Urine Protein Urine Blood Urine Nitrate Ur Leukocyte Esterase 08/03/24 08:09 WBC RBC Hgb Hct MPV Neut % (Auto) Lymph % (Auto) Neut # (Auto) Lymph # (Auto) Neutrophils % (Manual) VBG pO2 VBG O2 Saturation VBG Lactic Acid Sodium BUN Creatinine Estimated GFR Est GFR ( Amer) Glucose Lactate 3.3 H NT-Pro-B Natriuret Pep Globulin Urine Protein Urine Blood Urine Nitrate Ur Leukocyte Esterase Assessment and Plan *Assessment and plan (1) Pneumonia: Status: Resolved Category: Medical Code(s): J18.9 - Pneumonia, unspecified organism (2) Acute respiratory failure with hypoxia: Status: Acute Category: Medical Code(s): J96.01 - Acute respiratory failure with hypoxia Plan Ms. Arellano is a 83-year-old female with reported history of atrial fibrillation hypertension COPD cardiac dysrhythmias bladder cancer presented with fever worsening respiratory distress hypoxia vomiting. Patient upon presentation to ED needing new oxygen requirements pulmonary was called for further evaluation and management. Patient predominant complaint today include abdominal discomfort, nausea and vomiting. Denies any obvious choking episodes Neutrophilic predominant leukocytosis upon admission. Chest x-ray upon admission concerning bilateral peripheral effusions, however subsequent CT chest without contrast did not show any obvious effusions. Near complete Left lower lobe atelectasis noted with associated airspace disease. This noted left lower lobe changes appear new from her CT from July 2024 Plan: Change antibiotics to Zosyn pending culture results DuoNebs 4 times daily as needed N.p.o. midnight, bronchoscopy transbronchial biopsy tomorrow. Discussed the patient with agreed upon intubating for the procedure. Change apixaban to Lovenox, will hold morning anticoagulation dose to facilitate bronchoscopy procedure. Anesthesia consult for preop evaluation
[2024-08-03 13:01] LABS: Chloride 99 mmol/L (98-107); Sodium 135 mmol/L (136-145)
[2024-08-03 13:02] LABS: Potassium 3.5 mmoL/L (3.5-5.1)
[2024-08-03 13:04] LABS: Blood Urea Nitrogen 39 mg/dl (7-17); Creatinine Clearance Estimated 26 mL/min (50-200); Estimated Glomerular Filt Rate 21 ml/min (>60); GFR (African American) 26 ML/MIN (>60)
[2024-08-03 13:05] LABS: Anion Gap 10.5 mEq/L (5-15); Calcium 8.5 mg/dl (8.4-10.2); Carbon Dioxide 29 mmol/L (22.0-30.0); Glucose 124 mg/dl (74-100)
--- NOTE | 2024-08-03 13:25 | US_ITS ---
FINAL REPORT TECHNIQUE: Ultrasound images of the kidneys and bladder were obtained. CLINICAL HISTORY: Worsening HIREN FINDINGS: The right kidney measures 10 cm in length. It is normal in echogenicity. There is no hydronephrosis. The left kidney measures 11 cm in length. It is normal in echogenicity. There is no hydronephrosis. There is mild scarring in the lower pole of the left kidney. The urinary bladder is unremarkable. IMPRESSION: No obstructive uropathy. Reviewed, Interpreted and Dictated by Riaz Meyer MD Transcribed by Angela Hurtado Authenticated and [facility]
--- NOTE | 2024-08-03 14:00 | HMH.PTEV ---
Physical Therapy Evaluation Rehab PT IP Evaluation Start: 08/03/24 11:19 Freq: ONCE Status: Active Protocol: Document 08/03/24 13:56 MINA (Rec: 08/03/24 14:00 [id number]) Subjective/History History History Per H&P The patient is an 83-year-old female with a past medical history of atrial fibrillation , hypertension, COPD, cardiac arrhythmia (pacemaker- dependent), tobacco dependence , prior respiratory failure, pleural effusion, and bladder cancer, who presented to the emergency department (ED) with shortness of breath, hypoxia, and vomiting starting today. Her son, present at the bedside, reports a recent admission for a urinary tract infection (UTI) with discharge to a residential for rehab, where she developed hypoxia. She has a history of hypoxia per son. In the ED, she was alert, oriented, and cooperative. Initial SpO2 was 84% on room air, improving to 93% on 3L nasal cannula. Exam was notable for decreased lung sounds bilaterally. Labs revealed leukocytosis (WBC 10. 9, neutrophilia 91.3%), acute kidney injury (Cr 2.10, BUN 32 , eGFR 23), elevated BNP (531) , and urinalysis suggestive of UTI (nitrites, leukocytes, blood). VBG showed hypoxia ( pO2 25.0, O2 sat 40.5%) with mild lactic acidosis (lactic acid 2.2). Troponin was <0.01. SARS-CoV-2 and influenza PCRs were negative. Chest imaging, initially interpreted as right-sided pneumonia by the ED provider, was finalized as a mild interstitial infiltrate in the left lower lobe per radiology read. Differential diagnosis includes interstitial lung process (e.g ., pulmonary edema, atypical infection), UTI with sepsis, COPD exacerbation, and acute respiratory failure; acute coronary syndrome was ruled out by troponin. ED interventions included oxygen therapy (3L NC), DuoNeb for respiratory symptoms, and Zofran for vomiting. Given new oxygen requirement, HIREN, active UTI, and interstitial lung findings in a frail patient with significant cardiopulmonary comorbidities, admission to hospital medicine was deemed necessary. The plan was discussed with the patient and son, who agreed to inpatient care. Subjective Subjective Pt is alert and oriented x3. Pt reports that she lives alone in a house, with no VLAD. She reports that she has a walker that she uses occasionally. She reports that before admission to the hospital, she was fully IND with all ADLs and mobility. New diagnosis of cancer in past 12 No months? Rehab PT IP Eval Objective Appearance Patient Behavior Appropriate,Patient Baseline Patient Orientation Person,Place,Time Difficulty following instructions none Speech Pattern Clear,Patient Baseline Ambulation Patient Able to Ambulate Yes Ambulation Observation IP General Gait Pattern Observation Shuffling Step Ambulation Distance (feet) 6 Ambulation Assistive Device None Ambulation Ability Supervision/Stand by Balance Ability to Arise Able, uses arms to help Sitting Balance Steady, safe Standing Balance Steady, wide stance Dynamic Sitting Balance Ability Good Dynamic Standing Balance Ability Good Transfers Bed Transfer Ability Supervision/Stand by Chair Transfer Ability Supervision/Stand by Sit to Stand Bed Transfer Ability Supervision/Stand by Sit to Stand Chair Transfer Ability Supervision/Stand by Rehab PT IP prob,goals,plan Problems Date of Evaluation: 08/03/24 PT IP Problems Bed Mobility,Transfers,Gait, Balance,Self care,Safety Rehab Potential Rehab Potential Good Equipment Needs Assistive Devices None / NA Plan PT Intervention Plan Bed Mobility,Transfers,Gait, Balance,Self care,Safety, Therapeutic Exercise PT Plan Frequency BID Duration LOS Discharge Goals Bed Transfer Ability Independent Sit to Stand Chair Transfer Ability Independent Ambulation Assistive Device None,Rolling Walker Ambulation Distance (feet) 100 Discharge Plan PT Discharge Plan PT is recommending pt be discharged to home with home health when deemed medically stable. Pt would benefit from skilled PT during her acute stay to prevent further injuries, improve transfers and mobility and to promote a return to her PLOF. Eval Complexity Eval Charge Codes 69134 - Moderate Complexity PHYSICIAN CERTIFICATION: I certify the specified therapy services for Violet Arellano are required, authorized, and reviewed every 30 days.
--- NOTE | 2024-08-03 14:11 | HMH.OTEV ---
OT Inpatient Evaluation Rehab OT IP Evaluation Start: 08/03/24 11:19 Freq: ONCE Status: Active Protocol: Document 08/03/24 14:08 TOR (Rec: 08/03/24 14:10 TOR [id number]) Rehab OT IP Assessment Subjective History The patient is an 83-year-old female with a past medical history of atrial fibrillation , hypertension, COPD, cardiac arrhythmia (pacemaker- dependent), tobacco dependence , prior respiratory failure, pleural effusion, and bladder cancer, who presented to the emergency department (ED) with shortness of breath, hypoxia, and vomiting starting today. Her son, present at the bedside, reports a recent admission for a urinary tract infection (UTI) with discharge to a half-way for rehab, where she developed hypoxia. She has a history of hypoxia per son. In the ED, she was alert, oriented, and cooperative. Initial SpO2 was 84% on room air, improving to 93% on 3L nasal cannula. Exam was notable for decreased lung sounds bilaterally. Labs revealed leukocytosis (WBC 10. 9, neutrophilia 91.3%), acute kidney injury (Cr 2.10, BUN 32 , eGFR 23), elevated BNP (531) , and urinalysis suggestive of UTI (nitrites, leukocytes, blood). VBG showed hypoxia ( pO2 25.0, O2 sat 40.5%) with mild lactic acidosis (lactic acid 2.2). Troponin was <0.01. SARS-CoV-2 and influenza PCRs were negative. Chest imaging, initially interpreted as right-sided pneumonia by the ED provider, was finalized as a mild interstitial infiltrate in the left lower lobe per radiology read. Differential diagnosis includes interstitial lung process (e.g ., pulmonary edema, atypical infection), UTI with sepsis, COPD exacerbation, and acute respiratory failure; acute coronary syndrome was ruled out by troponin. ED interventions included oxygen therapy (3L NC), DuoNeb for respiratory symptoms, and Zofran for vomiting. Given new oxygen requirement, HIREN, active UTI, and interstitial lung findings in a frail patient with significant cardiopulmonary comorbidities, admission to hospital medicine was deemed necessary. The plan was discussed with the patient and son, who agreed to inpatient care. LIves alone in 1 story home with 1-2 VLAD. Independent with ADLs and fx'l mobility. Has assist with house cleaning. Subjective I can get up. Analysis Patient's ability to complete bed mobility, transfers and safety awareness for ADLs. Patient completed tasks with SBA. No LOB. Objective Patient Orientation Person,Place,Name,Birthday Right Upper Extremity Gross ROM WFL Left Upper Extremity Gross ROM WFL Bed Mobility bed mobility - supine/sit Assist Level Supervision/Stand by Transfer Training Sit/Stand/Step Transfer Assist Level Supervision/Stand by Chair Transfer Ability Supervision/Stand by Chair Transfer Technique Sit to/from Ambulatory Chair Transfer Assistive Devices Rolling Walker Rehab OT IP prob,goals,plan Problems Date of Evaluation: 08/03/24 OT IP Problems Bed Mobility,Transfers,Balance ,Self care,Safety Rehab Potential Rehab Potential Good Equipment Needs Assistive Devices Rolling / Wheeled Walker Plan OT intervention Plan Bed Mobility,Transfers,Balance ,Self care,Safety,Therapeutic Exercise OT Plan Frequency Daily Duration LOS Discharge Goals Bed Mobility Ability Independent Sit to Stand Chair Transfer Ability Independent Chair Transfer Ability Independent Chair Transfer Technique Sit to/from Ambulatory Chair Transfer Assistive Devices None Discharge Plan OT Discharge Plan Recommend HH services after medical d/c. Patient to continue skilled OT Services while here at [facility] medical d/c. Eval Complexity Eval Charge Codes 54572 - Low Complexity PHYSICIAN CERTIFICATION: I certify the specified therapy services for Violet Arellano are required, authorized, and reviewed every 30 days.
[2024-08-03] MEDS: PIPERCILLIN/TAZO 3.375 GM in 0.9 % SODIUM CHLORIDE 50 ML IV ×2 (14:21→20:31)
--- NOTE | 2024-08-03 17:18 | P.PNANES_ITS ---
[facility] Disclaimer: The information contained in this section may have been updated after the patient was seen, as this information can be updated by other users. Medical History Cardiac pacemaker in situ Sepsis Thrombocytopenia Elevated lactic acid level Hyperglycemia Leukocytosis Pleural effusion, left Pulmonary emphysema Acute respiratory failure with hypoxia Bladder cancer Breast cancer History of stroke Rheumatoid arthritis Atrial fibrillation Hypertension COPD (chronic obstructive pulmonary disease) Surgical History H/O transurethral resection of bladder tumor (TURBT) Family History Other No significant family history Social History Smoking Status: Former smoker alcohol intake: never substance use type: denies use current occupational status: retired Travel in the last 8 weeks: Inside the [place] [facility] Anesthesia Checklist Patient Identification Patient Identification: Verbal (Name & ) Structural Data Admitted From: Inpatient Planned Operative Procedure/s: bronchoscopy Consent for Planned Operative Procedure(s) Verified: Yes Airway Assessment Mallampati Score:: Class II C-Spine Mobility Assessed: Yes TMJ Mobility Assessed: Yes Dentition: Dentures-good fit Neurological Assessment Level of Consciousness: Awake, Alert and Appropriate Anesthesia Plan Anesthesia Risk discussed: Yes Anesthesia Plan: Verified ASA Class: IV Anesthesia Type: General Preoperative Comments Pre-Operative Comments: spoke w pt about proposed bronchoscopy tomorrow. Risks and benefits discussed, questions answered.
[2024-08-03] MEDS: ENOXAPARIN 100MG/ML SYRINGE 85 MG SUBCUT (20:31)
[2024-08-03] MEDS: OXYBUTYNIN 5MG TAB 5 MG PO (20:31)
[2024-08-03 21:04] LABS: Chloride 101 mmol/L (98-107); Sodium 136 mmol/L (136-145)
[2024-08-03 21:06] LABS: Blood Urea Nitrogen 43 mg/dl (7-17); Creatinine Clearance Estimated 29 mL/min (50-200); Estimated Glomerular Filt Rate 24 ml/min (>60); GFR (African American) 29 ML/MIN (>60)
[2024-08-03 21:07] LABS: Calcium 8.6 mg/dl (8.4-10.2); Carbon Dioxide 31 mmol/L (22.0-30.0); Glucose 130 mg/dl (74-100)
[2024-08-03 21:16] LABS: Creatinine,Urine Random 47 mg/dL (Not Estab.); Urea Nitrogen,Urine Random 402 mg/dl (Not Estab.)
[2024-08-04] VITALS (24 sets, daily range): BP systolic 125–189; BP diastolic 55–105; PULSE 64–95; RESP 16–20; TEMP 36.3–37.4; O2SAT 90–95; BMI 28.7
--- NOTE | 2024-08-04 00:14 | P.PN_ITS ---
Subjective *Date: 08/04/24 *Time: 00:26 Interval history: Patient states she feels better today. However CT shows prominent left lower lobe pneumonia. Bronchoscopy planned for tomorrow. N.p.o. at midnight, hold morning Lovenox. Exam Data for Last 24 hours Vital signs and Labs for Last 24 Hours: Temp Pulse Resp BP Pulse Ox O2 Del Method O2 Flow Rate 98.1 F 87 18 149/63 H 94 L Room Air 1.5 08/03/24 20:00 08/03/24 20:00 08/03/24 16:00 08/03/24 20:00 08/03/24 20:00 08/03/24 23:00 08/03/24 21:00 Laboratory Results - last 24 hr 08/03/24 00:30: Lactate 2.2 H 08/03/24 02:20: Troponin I < 0.01 08/03/24 02:50: Lactate 3.3 H 08/03/24 06:15: WBC 14.8 H D, RBC 3.60 L, Hgb 10.3 L D, Hct 32.1 L, MCV 89.2, MCH 28.6, MCHC 32.1, RDW 13.8, Plt Count 245, MPV 10.6 H, Neut % (Auto) 88.2 H, Lymph % (Auto) 5.5 L, Ellis % (Auto) 5.6, Eos % (Auto) 0.1, Baso % (Auto) 0.2, Neut # (Auto) 13.1 H, Lymph # (Auto) 0.8, [place] # (Auto) 0.8, Eos # (Auto) 0.0, Baso # (Auto) 0.0, Sodium 134 L, Potassium 4.3, Chloride 99, Carbon Dioxide 27, Anion Gap 12.3, BUN 37 H, Creatinine 2.10 H, Estimated Creat Clear 28, Estimated GFR 23 L, Est GFR ( Amer) 27 L, Glucose 118 H, Calcium 8.5, Magnesium 1.8 08/03/24 08:09: Lactate 3.3 H 08/03/24 12:50: Sodium 135 L, Potassium 3.5, Chloride 99, Carbon Dioxide 29, Anion Gap 10.5, BUN 39 H, Creatinine 2.20 H, Estimated Creat Clear 26, Estimated GFR 21 L, Est GFR ( Amer) 26 L, Glucose 124 H, Calcium 8.5 08/03/24 20:32: Sodium 136, Potassium 4.0, Chloride 101, Carbon Dioxide 31 H, Anion Gap 8.0, BUN 43 H, Creatinine 2.00 H, Estimated Creat Clear 29, Estimated GFR 24 L, Est GFR ( Amer) 29 L, Glucose 130 H, Calcium 8.6 08/03/24 20:40: Ur Random Urea Nitrogn 402, Urine Creatinine 47, Urine Sodium 20.0 L I & O for Last 24 hours: Intake & Output 08/01/24 08/02/24 08/03/24 08/04/24 23:59 23:59 23:59 23:59 Intake Total 1020 / 1020 Output Total 0 / 0 Balance 1020 / 1020 Weight 82.5 kg 83.007 kg Microbiology Reports for the Last 24 Hours: Microbiology 08/02/24 20:30 Blood Blood Culture - Preliminary NO GROWTH AFTER 24 HOURS 08/02/24 20:30 Blood Blood Culture - Preliminary NO GROWTH AFTER 24 HOURS 08/03/24 00:10 Sputum - Expectorated Sputum Gram Stain - Final Constitutional Constitutional: no acute distress *Routine HEENT Exam Head: Present normocephalic Eye: Present EOMI and PERRL ENT: Present mucous membranes moist *Routine Neck Exam Neck: Present supple; Absent lymphadenopathy *Routine Respiratory Exam Respiratory: Present CTA bilaterally *Routine Cardiovascular Exam Cardiovascular: Present RRR *Routine Abdominal Exam Abdominal: Present soft and normoactive bowel sounds; Absent tenderness *Routine Extremities Exam Extremities: Absent cyanosis, clubbing or edema *Routine Skin Exam Skin: Present warm; Absent rash *Routine Neurological Exam Neurological: Present alert and oriented X3 Assessment and Plan *Assessment and plan (1) Hypertension: Status: Acute Qualifiers: Hypertension type: unspecified Qualified Code(s): I10 - Essential (primary) hypertension Category: Medical Code(s): I10 - Essential (primary) hypertension (2) Atrial fibrillation: Status: Acute Qualifiers: Atrial fibrillation type: paroxysmal Qualified Code(s): I48.0 - Paroxysmal atrial fibrillation Category: Medical Code(s): I48.91 - Unspecified atrial fibrillation Plan Violet Arellano is an 83-year-old female with hypertension, atrial fibrillation on Eliquis, COPD, prior CVA, and recent bladder tumor resection presents with progressive shortness of breath, nausea/vomiting. #Acute on chronic hypoxic respiratory failure #Left lower lobe pneumonia ? Similar presentation about a month ago, discharged with cefdinir to [facility]. Discharged from [facility] 2 days ago back home. ? CT chest 08/04/2024 reveals dense left lower lobe pneumonia. ? WBC increased from 10-14.8 today. No signs of sepsis. ? Was requiring 3 L nasal cannula this morning, weaned to room air later this evening. ? Pulmonology consulted, recommended switching to Zosyn today. Plan for bronchoscopy in the morning. ? Zosyn day 1. ? N.p.o. at midnight, bronchoscopy in the morning. Will need intubation per pulmonology. ? Follow-up BAL, sputum, blood cultures. ? Follow-up CBC, procalcitonin, CRP, ESR tomorrow. #HIREN, ATN ? Initial creatinine 2.1, improved to 2.0 today. ? Did not improve significantly with IV fluids today creatinine 2.2. ? Renal ultrasound does not show hydronephrosis. ? FEUrea 48.2% reveals intrinsic renal failure. This can be explained by patient's nausea/vomiting over the past few days. ? Continue IV NS at 75 mL/h. #A-fib ? Currently rate controlled. Resume home metoprolol, amiodarone, Eliquis. #Hypertension ? Hold home spironolactone, losartan, Lasix due to HIREN. #COPD ? Resume home Trelegy. #Recurrent bladder cancer with recent resection - Will be following up with [facility] to begin chemotherapy soon. DNR/DNI Eliquis twice daily Cardiac diet
[2024-08-04] MEDS: IPRATROPIUM/ALBUTEROL 3 ML NEB IH ×4 (00:34→18:19)
[2024-08-04] MEDS: PIPERCILLIN/TAZO 3.375 GM in 0.9 % SODIUM CHLORIDE 50 ML IV ×4 (02:11→18:31)
[2024-08-04] MEDS: 0.9 % SODIUM CHLORIDE 1000ML 1,000 ML 75 ML IV (02:11)
--- NOTE | 2024-08-04 05:09 | PC.NURSE ---
Pt is alert and oriented x4 and currently tolerating 1.5L well @ 95%. Pt lungs remain diminished. Pt has rested well this shift and denies pain. Pt has had no acute changes to note.
[2024-08-04 07:26] LABS: Basophils % 0.3 % (0.1-2.0); Eosinophils # 0.6 K/mm3 (0.0-0.4); Eosinophils % 8.2 % (0.1-12.0); Hematocrit 31.4 % (37.0-47.0); Hemoglobin 9.8 g/dL (12.2-16.2); Lymphocytes # 1.3 K/mm3 (0.7-4.5); Lymphocytes % 17.6 % (10-50); Mean Corpuscular HGB Conc 31.2 g/dL (31.8-35.4); Mean Corpuscular Hemoglobin 28.4 pg (27.0-31.2); Mean Platelet Volume 10.3 fl (7.4-10.4); Monocytes # 0.5 K/mm3 (0.1-1.0); Monocytes % 7.3 % (1.7-9.3); Neutrophils # 4.9 K/mm3 (1.8-7.8); Neutrophils % 66.3 % (37.0-80.0); Platelet Count 206 K/mm3 (142-424); Red Blood Count 3.45 M/mm3 (4.20-5.40); Red Cell Distribution Width 14.2 % (11.5-17.5); White Blood Count 7.4 K/mm3 (4.8-10.8)
[2024-08-04 07:59] LABS: Anion Gap 7.5 mEq/L (5-15); Blood Urea Nitrogen 39 mg/dl (7-17); Calcium 8.5 mg/dl (8.4-10.2); Carbon Dioxide 29 mmol/L (22.0-30.0); Chloride 108 mmol/L (98-107); Creatinine Clearance Estimated 32 mL/min (50-200); Estimated Glomerular Filt Rate 27 ml/min (>60); GFR (African American) 33 ML/MIN (>60); Glucose 93 mg/dl (74-100); Potassium 4.5 mmoL/L (3.5-5.1); Sodium 140 mmol/L (136-145)
[2024-08-04] MEDS: AMIODARONE 200MG TABLET 400 MG PO ×2 (08:41→20:37)
[2024-08-04] MEDS: FAMOTIDINE 20MG TABLET 20 MG PO ×2 (08:41→20:37)
[2024-08-04] MEDS: OXYBUTYNIN 5MG TAB 5 MG PO ×2 (08:41→20:40)
[2024-08-04] MEDS: METOPROLOL SUCCINATE XL 25MG TABLET 25 MG PO (08:41)
[2024-08-04] MEDS: CITALOPRAM 40MG TABLET 40 MG PO (08:41)
[2024-08-04] MEDS: FLUTICASONE/UMECLIDIN/VILANTER 100/62.5/25MCG INHALER 1 PUFF IH (08:42)
--- NOTE | 2024-08-04 09:23 | P.PN_ITS ---
Subjective *Date: 08/04/24 *Time: 10:30 Interval history: No acute respiratory events overnight. The patient denies any new respiratory complaints. Pulmonology Exam Inpatient Vital signs and Labs for Last 24 Hours: Temp Pulse Resp BP Pulse Ox O2 Del Method O2 Flow Rate 98.9 F 78 20 150/60 H 91 L Nasal Cannula 2 08/04/24 08:00 08/04/24 08:00 08/04/24 08:00 08/04/24 08:00 08/04/24 08:00 08/04/24 08:00 08/04/24 08:00 Laboratory Results - last 24 hr 08/03/24 12:50: Sodium 135 L, Potassium 3.5, Chloride 99, Carbon Dioxide 29, Anion Gap 10.5, BUN 39 H, Creatinine 2.20 H, Estimated Creat Clear 26, Estimated GFR 21 L, Est GFR ( Amer) 26 L, Glucose 124 H, Calcium 8.5 08/03/24 20:32: Sodium 136, Potassium 4.0, Chloride 101, Carbon Dioxide 31 H, Anion Gap 8.0, BUN 43 H, Creatinine 2.00 H, Estimated Creat Clear 29, Estimated GFR 24 L, Est GFR ( Amer) 29 L, Glucose 130 H, Calcium 8.6 08/03/24 20:40: Ur Random Urea Nitrogn 402, Urine Creatinine 47, Urine Sodium 20.0 L 08/04/24 06:38: WBC 7.4 D, RBC 3.45 L, Hgb 9.8 L, Hct 31.4 L, MCV 91.0, MCH 28.4, MCHC 31.2 L, RDW 14.2, Plt Count 206, MPV 10.3, Neut % (Auto) 66.3, Lymph % (Auto) 17.6, [place] % (Auto) 7.3, Eos % (Auto) 8.2, Baso % (Auto) 0.3, Neut # (Auto) 4.9, Lymph # (Auto) 1.3, [place] # (Auto) 0.5, Eos # (Auto) 0.6 H, Baso # (Auto) 0.0, Sodium 140, Potassium 4.5, Chloride 108 H, Carbon Dioxide 29, Anion Gap 7.5, BUN 39 H, Creatinine 1.80 H, Estimated Creat Clear 32, Estimated GFR 27 L, Est GFR ( Amer) 33 L, Glucose 93 D, Calcium 8.5, Magnesium 2.0 D Temp Pulse Resp BP Pulse Ox O2 Del Method O2 Flow Rate 98.5 F 64 18 112/43 L 88 L Room Air 3.5 08/03/24 07:48 08/03/24 10:37 08/03/24 07:48 08/03/24 10:37 08/03/24 09:58 08/03/24 09:58 08/03/24 09:00 Laboratory Results - last 24 hr 08/02/24 19:47: SARS-CoV-2 (PCR) Not detected, Influenza A Untype (PCR) Not detected, Influenza Type B (PCR) Not detected 08/02/24 20:18: VBG pH 7.37, VBG pCO2 42.9, VBG pO2 25.0 L, VBG HCO3 24.1, VBG Total CO2 25.4, VBG O2 Saturation 40.5 L, VBG Base Excess -1.2, VBG Lactic Acid 2.2 H 08/02/24 20:30: WBC 10.9 H, RBC 4.30, Hgb 12.3, Hct 38.3, MCV 89.1, MCH 28.6, MCHC 32.1, RDW 13.8, Plt Count 278, MPV 9.9, Neut % (Auto) 91.3 H, Lymph % (Auto) 2.9 L, [place] % (Auto) 4.7, Eos % (Auto) 0.5, Baso % (Auto) 0.2, Neut # (Auto) 10.0 H, Lymph # (Auto) 0.3 L, [place] # (Auto) 0.5, Eos # (Auto) 0.1, Baso # (Auto) 0.0, Total Counted 100, Neutrophils % (Manual) 88 H, Lymphocytes % (Manual) 11, Eosinophils % (Manual) 1, Platelet Estimate Normal, RBC Morphology Normal, Sodium 137, Potassium 4.0, Chloride 98, Carbon Dioxide 30, Anion Gap 13.0, BUN 32 H, Creatinine 2.10 H, Estimated Creat Clear 28, Estimated GFR 23 L, Est GFR ( Amer) 27 L, Glucose 122 H, Calcium 9.1, Total Bilirubin 0.5, AST 36, ALT 27, Alkaline Phosphatase 78, Troponin I < 0.01, NT-Pro-B Natriuret Pep 531 H, Total Protein 8.0 D, Albumin 4.3, Globulin 3.7 H, Albumin/Globulin Ratio 1.2 08/02/24 21:02: Urine Color [place], Urine Appearance Clear, Urine pH 5.0, Ur Specific [place] 1.025, Urine Protein 2+ A, Urine Glucose (UA) 1+, Urine Ketones Trace, Urine Blood 1+ A, Urine Nitrate Positive A, Urine Bilirubin Negative, Urine Urobilinogen 4.0, Ur Leukocyte Esterase 2+ A, Urine RBC 10-20, Urine WBC 20-50, Ur Squamous Epith Cells 3-5, Urine Bacteria 1+, Hyaline Casts 10-20 08/02/24 23:20: Troponin I 0.02 08/03/24 00:30: Lactate 2.2 H 08/03/24 02:20: Troponin I < 0.01 08/03/24 02:50: Lactate 3.3 H 08/03/24 06:15: WBC 14.8 H D, RBC 3.60 L, Hgb 10.3 L D, Hct 32.1 L, MCV 89.2, MCH 28.6, MCHC 32.1, RDW 13.8, Plt Count 245, MPV 10.6 H, Neut % (Auto) 88.2 H, Lymph % (Auto) 5.5 L, [place] % (Auto) 5.6, Eos % (Auto) 0.1, Baso % (Auto) 0.2, Neut # (Auto) 13.1 H, Lymph # (Auto) 0.8, [place] # (Auto) 0.8, Eos # (Auto) 0.0, Baso # (Auto) 0.0, Sodium 134 L, Potassium 4.3, Chloride 99, Carbon Dioxide 27, Anion Gap 12.3, BUN 37 H, Creatinine 2.10 H, Estimated Creat Clear 28, Estimated GFR 23 L, Est GFR ( Amer) 27 L, Glucose 118 H, Calcium 8.5, Magnesium 1.8 08/03/24 08:09: Lactate 3.3 H I & O for Labs for Last 24 Hours: Intake & Output 08/01/24 08/02/24 08/03/24 08/04/24 23:59 23:59 23:59 23:59 Intake Total 1020 / 1070 50 / 50 Output Total 0 / 0 Balance 1020 / 1070 50 / 50 Weight 181 lb 14.102 oz 183 lb 182 lb 15.986 oz Intake & Output 07/31/24 08/01/24 08/02/24 08/03/24 23:59 23:59 23:59 23:59 Intake Total 440 / 440 Output Total 0 / 0 Balance 440 / 440 Weight 181 lb 14.102 oz 183 lb Microbiology Reports for the Last 24 Hours: Microbiology 08/02/24 21:02 Urine,Catheterized Urine Culture - Final No growth. 08/02/24 20:30 Blood Blood Culture - Preliminary NO GROWTH AFTER 24 HOURS 08/02/24 20:30 Blood Blood Culture - Preliminary NO GROWTH AFTER 24 HOURS 08/03/24 00:10 Sputum - Expectorated Sputum Gram Stain - Final Microbiology 08/03/24 00:10 Sputum - Expectorated Sputum Gram Stain - Final Constitutional: Present moderate distress Head: Present normocephalic and atraumatic ENT: Present normal exam, normal oropharynx and mucous membranes moist Neck: Present normal inspection and full ROM Respiratory: Present diminished air movement and able to speak in complete sentences; Absent respiratory distress, rhonchi or wheezes Cardiac: Present S1/S2, Tachycardia and radial pulses present GI: Present soft and distention; Absent tenderness or guarding Rectal (female): Present deferred (female): Present deferred Skin: Present intact; Absent cyanosis or jaundice Neuro: Present alert, awake and oriented x 3 Extremities: Present normal inspection; Absent clubbing or cyanosis Psychiatric: Present normal affect and cooperative Assessment and Plan *Assessment and plan (1) Pneumonia: Status: Resolved Category: Medical Code(s): J18.9 - Pneumonia, unspecified organism (2) Acute respiratory failure with hypoxia: Status: Acute Category: Medical Code(s): J96.01 - Acute respiratory failure with hypoxia Plan Ms. Arellano is a 83-year-old female with reported history of atrial fibrillation hypertension COPD cardiac dysrhythmias bladder cancer presented with fever worsening respiratory distress hypoxia vomiting. Patient upon presentation to ED needing new oxygen requirements pulmonary was called for further evaluation and management. Patient predominant complaint today include abdominal discomfort, nausea and vomiting. Denies any obvious choking episodes Neutrophilic predominant leukocytosis upon admission. Chest x-ray upon admission concerning bilateral peripheral effusions, however subsequent CT chest without contrast did not show any obvious effusions. Near complete Left lower lobe atelectasis noted with associated airspace disease. This noted left lower lobe changes appear new from her CT from July 2024 Interval update: No acute respiratory vents overnight. Stable oxygen requirements. Continues to receive Zosyn. Improving leukocytosis. N.p.o. from midnight. Apixaban on hold. Will proceed with bronchoscopy for Plan: Change antibiotics to Zosyn pending culture results DuoNebs 4 times daily as needed Apixaban post bronchoscopy Thank you for involving pulmonary in this patient care. Will continue to follow
--- NOTE | 2024-08-04 12:04 | P.PNANES_ITS ---
[facility] Disclaimer: The information contained in this section may have been updated after the patient was seen, as this information can be updated by other users. Medical History Cardiac pacemaker in situ Sepsis Thrombocytopenia Elevated lactic acid level Hyperglycemia Leukocytosis Pleural effusion, left Pulmonary emphysema Acute respiratory failure with hypoxia Bladder cancer Breast cancer History of stroke Rheumatoid arthritis Atrial fibrillation Hypertension COPD (chronic obstructive pulmonary disease) Surgical History H/O transurethral resection of bladder tumor (TURBT) Family History Other No significant family history Social History (Updated 08/03/24 @ 17:20 by Jameel Tucker CRNA) Smoking Status: Former smoker alcohol intake: never substance use type: denies use current occupational status: retired Travel in the last 8 weeks: Inside the [place] Have you lived/traveled outside [place] in past 30 days?: No Contact w/someone who lives/traveled outside US past 30 days?: No Exposure to someone with infectious disease in past 14 days?: No Do you have a fever (greater than 100.4 F or 38 C)?: No Have you tested positive for COVID-19: No Exposed to someone with COVID-19 in past 14 days?: No Do you have a sore throat?: No Do you have a cough?: Yes Do you have any weakness?: No Are you experiencing any nausea/vomitting?: No Do you have any diarrhea?: No Are you experiencing any unusual bleeding?: No Do you have any muscle aches/pain?: No Do you have any abdominal pain?: No Are you experiencing loss of taste or smell?: No [facility] Anesthesia Checklist Patient Identification Patient Identification: Arm Band and Verbal (Name & ) Structural Data Admitted From: Inpatient ([id number]) Planned Operative Procedure/s: Bronch w/lung Bx Consent for Planned Operative Procedure(s) Verified: Yes Verified Documents: Surgical Consent and History and Physical NPO Status Verified Time NPO: 20:00 Chart Verification Results Verified: CBC, BMP, ECG and Chest Xray Additional verifications Patient : No Anesthesia Reactions: No Cardiovascular Assessment Heart Sounds: S1 & S2 Pulse Rhythm: Irregular Peripheral Edema: No Airway Assessment Mallampati Score:: Class II C-Spine Mobility Assessed: Yes (FROM demonstrated) TMJ Mobility Assessed: Yes Dentition: Dentures-good fit (Upper - removed) Neurological Assessment Level of Consciousness: Awake, Alert, Appropriate and Follows Commands Hx Seizures: No Numbness or tingling in extremities: No Anesthesia Plan Anesthesia Risk discussed: Yes Anesthesia Plan: Verified ASA Class: III Anesthesia Type: General
--- NOTE | 2024-08-04 13:16 | XR_ITS ---
FINAL REPORT CLINICAL HISTORY: BRONCH fluoro 2:39 2.6 la 57.24 mGy FINDINGS: FLUOROSCOPY LESS THAN 1 HOUR HISTORY: Fluoroscopy guidance. FINDINGS: Fluoroscopic guidance was provided for bronchoscopy. Two spot films were obtained. A total of 2:39 minutes of fluoroscopy time were used. DAP: 57.24 mGy IMPRESSION: As above. Reviewed, Interpreted and Dictated by Riaz Meyer MD Transcribed by Nkechi Alba Authenticated and [facility]
--- NOTE | 2024-08-04 13:25 | P.PNANES_ITS ---
[facility] Anesthesia Record Part I Anesthesia Record I Intake, IV Amount: 400 Hydration: Adequate Estimated blood loss (mL): 15 Urine output (mL): 0 Blood Products used (#): none Blood Pressure: 157/64 SaO2: 95 Pulse Rate: 79 Airway Patency: Patent Respiratory Rate: 20 Temperature: 97.3 F Patient is:: Awake (Talking), Nasal O2 (4L/min NC) and Stable Stable to PACU at:: 13:27
--- NOTE | 2024-08-04 13:31 | XR_ITS ---
FINAL REPORT CLINICAL HISTORY: post bronch COMPARISON: 07/15/2024 FINDINGS: A single frontal view of the chest was obtained. There is improved atelectasis or pneumonia in the right lung base. New patchy densities in the left lower lobe with volume loss are likely atelectasis. There is no significant pleural effusion. There is no evidence of pneumothorax. Mediastinum is unremarkable. A left-sided pacer is present. Heart size is normal. IMPRESSION: No pneumothorax post bronchoscopy. Increased density left lung base, likely atelectasis. Reviewed, Interpreted and Dictated by Riaz Meyer MD Transcribed by Nkechi Alba Authenticated and [facility]
--- NOTE | 2024-08-04 14:43 | EXP.BRONCH.N ---
Procedure: Date: 08/04/24 Patient Date of :: 1940 Procedure Performed:: Bronchoscopy airway examination, bronchoalveolar lavage and transbronchial lung biopsy Indications:: Pneumonia Performing Provider:: Ameya Rae MD Referring Provider:: Dr. Macias Sedation:: General anesthesia Procedure:: Bronchoscopy airway examination, bronchoalveolar lavage and transbronchial lung biopsy: A clean therapeutic bronchoscopy was advanced through the ET tube and airways were examined up to subsegmental bronchi. Copious amounts of thick tenacious secretions were noted in the left lower lobe bronchi, completely suctioned with difficulty using therapeutic bronchoscopy. Airways otherwise appeared grossly normal, no evidence of mucoid secretions, mucous plugging active bleeding/old blood clots noted. Bronchoalveolar lavage was performed in the LEFT LOWER LOBE with instillation of 60 cc normal saline with return of 25 cc back. BAL fluid was sent for cell count and differential along with bacterial fungal and AFB stain and cultures. Transbronchial biopsy was performed in the LEFT LOWER LOBE with a total of 7 biopsies performed, 5 biopsy specimens were sent in formalin for cytopathologic examination. The other 2 biopsy samples, were sent one each in two separate normal saline specimen cups for bacterial fungal and AFB stain cultures. Special request was also made for the pathologist to evaluate for AFB and fungal organisms on the cytopathologic examination. Patient tolerated the procedure with no immediate acute complications. We will follow the patient in pulmonary clinic in 7 to 10 days. Findings:: No acute immediate complication Recommendations:: Following bronchoscopy results Follow with the plan of care mentioned in today's progress note Complications:: No acute immediate complication Estimated blood obtained (mL): 5
--- NOTE | 2024-08-04 15:05 | EXP.ACUTE.PN ---
Subjective *Date: 08/04/24 *Time: 16:14 Interval history: Stable on L. Denies any chest pain or nausea or vomiting. Alert and oriented x 3. Planning for bronchoscopy today. Afebrile Medical Exam Vital signs and Labs for Last 24 Hours: Vital Signs Temp Pulse Pulse Resp BP BP Pulse Ox 08/04/24 14:52 08/04/24 13:52 97.3 F L 66 16 161/98 H 94 L 08/04/24 13:42 97.3 F L 72 16 189/72 H 94 L 08/04/24 13:32 97.3 F L 72 16 161/71 H 94 L 08/04/24 13:27 97.3 F L 79 20 157/64 H 08/04/24 13:22 97.3 F L 75 16 157/62 H 95 08/04/24 13:00 08/04/24 11:59 99.4 F 77 18 155/67 H 91 L 08/04/24 11:58 99.4 F 77 18 155/67 H 91 L 08/04/24 10:55 64 08/04/24 10:55 65 08/04/24 09:00 08/04/24 08:00 08/04/24 08:00 98.9 F 78 20 150/60 H 91 L 08/04/24 06:40 08/04/24 06:23 68 08/04/24 06:23 70 08/04/24 06:23 92 L 08/04/24 05:00 08/04/24 04:00 65 08/04/24 04:00 67 138/63 95 08/04/24 03:00 08/04/24 01:00 08/04/24 00:35 78 08/04/24 00:35 80 08/04/24 00:00 98.4 F 79 127/55 L 90 L 08/04/24 00:00 65 08/03/24 23:52 96 08/03/24 23:00 08/03/24 21:00 08/03/24 20:00 75 08/03/24 20:00 94 L 08/03/24 20:00 98.1 F 87 149/63 H 94 L 08/03/24 17:00 08/03/24 16:00 80 08/03/24 16:00 98 F 71 18 127/53 L 92 L O2 Del Method O2 Flow Rate 08/04/24 14:52 Nasal Cannula 1.5 08/04/24 13:52 Room Air 08/04/24 13:42 Room Air 08/04/24 13:32 Room Air 08/04/24 13:27 08/04/24 13:22 Room Air 08/04/24 13:00 Nasal Cannula 2 08/04/24 11:59 Nasal Cannula 2 08/04/24 11:58 Nasal Cannula 2 08/04/24 10:55 08/04/24 10:55 08/04/24 09:00 Nasal Cannula 1.5 08/04/24 08:00 Nasal Cannula 1.5 08/04/24 08:00 Nasal Cannula 2 08/04/24 06:40 Nasal Cannula 1.5 08/04/24 06:23 08/04/24 06:23 08/04/24 06:23 Nasal Cannula 2 08/04/24 05:00 Nasal Cannula 1.5 08/04/24 04:00 08/04/24 04:00 Nasal Cannula 2 08/04/24 03:00 Nasal Cannula 1.5 08/04/24 01:00 Nasal Cannula 1.5 08/04/24 00:35 08/04/24 00:35 08/04/24 00:00 Nasal Cannula 2 08/04/24 00:00 08/03/24 23:52 Nasal Cannula 2 08/03/24 23:00 Room Air 08/03/24 21:00 Nasal Cannula 1.5 08/03/24 20:00 08/03/24 20:00 Nasal Cannula 1.5 08/03/24 20:00 Nasal Cannula 2 08/03/24 17:00 Nasal Cannula 1.5 08/03/24 16:00 08/03/24 16:00 Room Air Intake and Output 08/03/24 08/04/24 08/04/24 23:59 07:59 15:59 Intake Total 280 / 1070 50 / 450 400 / 450 Output Total 0 / 0 0 / 0 Balance 280 / 1070 50 / 450 400 / 450 Intake: Intake, Oral Amount 280 / 850 Intake, Total IV Amount 50 / 450 400 / 450 Ceftriaxone 1 gm 1 gm In 0.9 % 50 / 50 Sodium Chloride 50 ml @ 100 mls /hr IV Q24H [facility] Rx#:[id number] Output: Output, Urine Amount 0 / 0 0 / 0 Other: Number of Unmeasured Voids 1 1 Weight 83.007 kg 83 kg Patient Weight 08/04/24 23:59 Weight 83 kg Laboratory Results - last 24 hr 08/03/24 20:32: Sodium 136, Potassium 4.0, Chloride 101, Carbon Dioxide 31 H, Anion Gap 8.0, BUN 43 H, Creatinine 2.00 H, Estimated Creat Clear 29, Estimated GFR 24 L, Est GFR ( Amer) 29 L, Glucose 130 H, Calcium 8.6 08/03/24 20:40: Ur Random Urea Nitrogn 402, Urine Creatinine 47, Urine Sodium 20.0 L 08/04/24 06:38: WBC 7.4 D, RBC 3.45 L, Hgb 9.8 L, Hct 31.4 L, MCV 91.0, MCH 28.4, MCHC 31.2 L, RDW 14.2, Plt Count 206, MPV 10.3, Neut % (Auto) 66.3, Lymph % (Auto) 17.6, Turner % (Auto) 7.3, Eos % (Auto) 8.2, Baso % (Auto) 0.3, Neut # (Auto) 4.9, Lymph # (Auto) 1.3, Turner # (Auto) 0.5, Eos # (Auto) 0.6 H, Baso # (Auto) 0.0, Sodium 140, Potassium 4.5, Chloride 108 H, Carbon Dioxide 29, Anion Gap 7.5, BUN 39 H, Creatinine 1.80 H, Estimated Creat Clear 32, Estimated GFR 27 L, Est GFR ( Amer) 33 L, Glucose 93 D, Calcium 8.5, Magnesium 2.0 D I & O for Labs for Last 24 Hours: Intake & Output 08/01/24 08/02/24 08/03/24 08/04/24 23:59 23:59 23:59 23:59 Intake Total 1020 / 1070 450 / 450 Output Total 0 / 0 0 / 0 Balance 1020 / 1070 450 / 450 Weight 82.5 kg 83.007 kg 83 kg Microbiology Reports for the Last 24 Hours: Microbiology 08/03/24 00:10 Sputum - Expectorated Sputum Gram Stain - Final 08/03/24 00:10 Sputum - Expectorated Sputum Sputum Culture - Preliminary 08/02/24 21:02 Urine,Catheterized Urine Culture - Final No growth. 08/02/24 20:30 Blood Blood Culture - Preliminary NO GROWTH AFTER 24 HOURS 08/02/24 20:30 Blood Blood Culture - Preliminary NO GROWTH AFTER 24 HOURS Constitutional: Present no acute distress, average body habitus, chronically ill appearing and cooperative Head: Present atraumatic and normocephalic ENT: Present normal exam Respiratory: Present prolonged expiratory phase, rhonchi, crackles and normal respiratory effort; Absent respiratory distress or wheezes Cardiac: Present Reg Rate and Rhythm GI: Present soft and normal bowel sounds; Absent distention or tenderness Extremities: Present normal inspection and full ROM Skin: Present intact; Absent erythema Neuro: Present Grossly Intact, alert, awake, oriented x 3 and moves all extremities Assessment and Plan *Assessment and plan (1) Acute respiratory failure with hypoxia: Status: Acute Category: Medical Code(s): J96.01 - Acute respiratory failure with hypoxia (2) Pneumonia: Status: Acute Qualifiers: Pneumonia type: due to unspecified organism Laterality: left Lung location: lower lobe of lung Qualified Code(s): J18.9 - Pneumonia, unspecified organism Category: Medical Code(s): J18.9 - Pneumonia, unspecified organism (3) COPD (chronic obstructive pulmonary disease): Status: Acute Qualifiers: COPD type: unspecified COPD Qualified Code(s): J44.9 - Chronic obstructive pulmonary disease, unspecified Category: Medical Code(s): J44.9 - Chronic obstructive pulmonary disease, unspecified (4) Hypertension: Status: Acute Qualifiers: Hypertension type: unspecified Qualified Code(s): I10 - Essential (primary) hypertension Category: Medical Code(s): I10 - Essential (primary) hypertension (5) Atrial fibrillation: Status: Acute Qualifiers: Atrial fibrillation type: paroxysmal Qualified Code(s): I48.0 - Paroxysmal atrial fibrillation Category: Medical Code(s): I48.91 - Unspecified atrial fibrillation (6) UTI (urinary tract infection): Status: Acute Category: Medical Code(s): N39.0 - Urinary tract infection, site not specified (7) Bladder cancer: Status: Chronic Category: Medical Code(s): C67.9 - Malignant neoplasm of bladder, unspecified (8) HIREN (acute kidney injury): Status: Acute Category: Medical Code(s): N17.9 - Acute kidney failure, unspecified Plan Violet Arellano is an 83-year-old female with hypertension, atrial fibrillation on Eliquis, COPD, prior CVA, and recent bladder tumor resection presents with progressive shortness of breath, nausea/vomiting. Stable 1-1/2 L. Going for bronchoscopy today. Pulmonology assisting with care. Problems addressed as follows: #Acute on chronic hypoxic respiratory failure #Left lower lobe pneumonia ? Similar presentation about a month ago, discharged with cefdinir to [place]. Discharged from [place] 2 days ago back home. ? CT chest 08/04/2024 reveals dense left lower lobe pneumonia. ? White count improved today to 7.4. Afebrile. Weaned to 1.5 L, continue goal sats greater 90% -Discussed case with pulmonology, planning on bronchoscopy today. Further management pending washout and culture results. -Continue Zosyn for broad empiric coverage ? Follow-up BAL, sputum, blood cultures. ? Repeat CBC, CMP, magnesium ordered for the morning. #HIREN, ATN ? Initial creatinine 2.1, improved to 1.8 today, BUN 39. ? FEUrea 48.2% reveals intrinsic renal failure. This can be explained by patient's nausea/vomiting over the past few days. - Tolerating p.o. fluids. Discontinue IV fluids #A-fib: Currently rate controlled. Resume home metoprolol, amiodarone, Eliquis. #Hypertension: Hold home spironolactone, losartan, Lasix due to HIREN. #COPD: Resume home Trelegy. #Recurrent bladder cancer with recent resection: Will be following up with [facility] to begin chemotherapy soon. DNR/DNI Eliquis twice daily Cardiac diet
--- NOTE | 2024-08-04 17:30 | PC.NURSE ---
pt resting supine in the bed, a&ox4. tolerating 2L NC well with sats >90%. pt had bronc this morning and tolerated well. biopsies sent and lavage completed. son updated on status. fluids still going at 75. ambulated to the bathroom and worked with OT this shift. vss. no needs at this time. possible dc tomorrow. call light within reach.
[2024-08-04] MEDS: ATORVASTATIN 40MG TABLET 40 MG PO (20:36)
[2024-08-04] MEDS: APIXABAN 5MG TABLET 5 MG PO (20:38)
[2024-08-05] VITALS (9 sets, daily range): BP systolic 135–199; BP diastolic 64–98; PULSE 66–89; RESP 16–18; TEMP 36.3–37.1; O2SAT 94–98; BMI 30.1
[2024-08-05] MEDS: IPRATROPIUM/ALBUTEROL 3 ML NEB IH ×3 (00:13→11:13)
[2024-08-05] MEDS: PIPERCILLIN/TAZO 3.375 GM in 0.9 % SODIUM CHLORIDE 50 ML IV ×2 (01:30→08:03)
--- NOTE | 2024-08-05 06:13 | PC.NURSE ---
Pt. is alert and orientated x 4. Pt. is on 2 liters of O2 per N/C. Pt. states she feels a litter better than when she cam into the hospital. Pt. slept well this shift. Did move to the reclining chair around 0400 and has been sleeping on and off. Pt. has had no c/o's this shiift. up to bedside commode with assist x 1. VSS. Personal items and call mendez in reach.
[2024-08-05 06:24] LABS: Basophils % 0.1 % (0.1-2.0); Hematocrit 30.3 % (37.0-47.0); Hemoglobin 9.6 g/dL (12.2-16.2); Lymphocytes # 0.7 K/mm3 (0.7-4.5); Lymphocytes % 6.2 % (10-50); Mean Corpuscular HGB Conc 31.7 g/dL (31.8-35.4); Mean Corpuscular Hemoglobin 28.3 pg (27.0-31.2); Mean Corpuscular Volume 89.4 fl (81-99); Mean Platelet Volume 10.5 fl (7.4-10.4); Monocytes # 0.3 K/mm3 (0.1-1.0); Monocytes % 2.6 % (1.7-9.3); Neutrophils # 9.8 K/mm3 (1.8-7.8); Neutrophils % 90.5 % (37.0-80.0); Platelet Count 204 K/mm3 (142-424); Red Blood Count 3.39 M/mm3 (4.20-5.40); Red Cell Distribution Width 13.9 % (11.5-17.5); White Blood Count 10.8 K/mm3 (4.8-10.8)
[2024-08-05 06:29] LABS: MANUAL DIFFERENTIAL MANUAL DIFFERENTIAL (MANUAL DIFF)
[2024-08-05 06:52] LABS: Anion Gap 8.4 mEq/L (5-15); Blood Urea Nitrogen 25 mg/dl (7-17); Carbon Dioxide 26 mmol/L (22.0-30.0); Chloride 109 mmol/L (98-107); Creatinine Clearance Estimated 51 mL/min (50-200); Estimated Glomerular Filt Rate 43 ml/min (>60); GFR (African American) 52 ML/MIN (>60); Glucose 121 mg/dl (74-100); Potassium 4.4 mmoL/L (3.5-5.1); Sodium 139 mmol/L (136-145)
[2024-08-05 06:59] LABS: Alanine Aminotransferase 20 U/L (12-78); Albumin Level 3.6 g/dl (3.5-5.0); Albumin/Globulin Ratio 1.3 (1.1-1.8); Alkaline Phosphatase 54 U/L (38-126); Anion Gap 12.6 mEq/L (5-15); Aspartate Amino Transferase 28 U/L (14-36); Bilirubin,Total 0.3 mg/dl (0.2-1.3); Blood Urea Nitrogen 27 mg/dl (7-17); Calcium 8.9 mg/dl (8.4-10.2); Carbon Dioxide 24 mmol/L (22.0-30.0); Chloride 108 mmol/L (98-107); Creatinine Clearance Estimated 51 mL/min (50-200); Estimated Glomerular Filt Rate 43 ml/min (>60); GFR (African American) 52 ML/MIN (>60); Globulin 2.7 g/dL (1.3-3.2); Glucose 119 mg/dl (74-100); Potassium 4.6 mmoL/L (3.5-5.1); Sodium 140 mmol/L (136-145); Total Protein,Serum 6.3 g/dl (6.3-8.2)
[2024-08-05 07:00] LABS: C-Reactive Protein 50.9 mg/L (0-4)
[2024-08-05 07:15] LABS: Erythrocyte Sedimentation Rate 64 mm/hr (0-30)
[2024-08-05 07:16] LABS: Procalcitonin 15.2 ng/mL (0.0-2.0)
--- NOTE | 2024-08-05 07:27 | EXP.DC.SUM ---
General Admission date:: 08/02/24 Discharge date: 08/05/24 HPI HPI HPI: The patient is an 83-year-old female with a past medical history of atrial fibrillation, hypertension, COPD, cardiac arrhythmia (pacemaker-dependent), tobacco dependence, prior respiratory failure, pleural effusion, and bladder cancer, who presented to the emergency department (ED) with shortness of breath, hypoxia, and vomiting starting today. Her son, present at the bedside, reports a recent admission for a urinary tract infection (UTI) with discharge to a long term for rehab, where she developed hypoxia. She has a history of hypoxia per son. In the ED, she was alert, oriented, and cooperative. Initial SpO2 was 84% on room air, improving to 93% on 3L nasal cannula. Exam was notable for decreased lung sounds bilaterally. Labs revealed leukocytosis (WBC 10.9, neutrophilia 91.3%), acute kidney injury (Cr 2.10, BUN 32, eGFR 23), elevated BNP (531), and urinalysis suggestive of UTI (nitrites, leukocytes, blood). VBG showed hypoxia (pO2 25.0, O2 sat 40.5%) with mild lactic acidosis (lactic acid 2.2). Troponin was <0.01. SARS-CoV-2 and influenza PCRs were negative. Chest imaging, initially interpreted as right-sided pneumonia by the ED provider, was finalized as a mild interstitial infiltrate in the left lower lobe per radiology read. Differential diagnosis includes interstitial lung process (e.g., pulmonary edema, atypical infection), UTI with sepsis, COPD exacerbation, and acute respiratory failure; acute coronary syndrome was ruled out by troponin. ED interventions included oxygen therapy (3L NC), DuoNeb for respiratory symptoms, and Zofran for vomiting. Given new oxygen requirement, HIREN, active UTI, and interstitial lung findings in a frail patient with significant cardiopulmonary comorbidities, admission to hospital medicine was deemed necessary. The plan was discussed with the patient and son, who agreed to inpatient care. Hospital Course Hospital Course Hospital Course: Violet Arellano is an 83-year-old female with hypertension, atrial fibrillation on Eliquis, COPD, prior CVA, and recent bladder tumor resection presents with progressive shortness of breath, nausea/vomiting. Was stable on 1 to 2 L. Able to wean to room air by morning of discharge. Was taken for bronchoscopy during admission, significant secretions were evacuated. Doing better since bronchoscopy. Pulmonology assisted with care. Antibiotics weaned to oral regimen to complete therapy at discharge. Close follow-up as an outpatient for further management. Problems addressed as follows: #Acute on chronic hypoxic respiratory failure #Left lower lobe pneumonia ? Similar presentation about a month ago, discharged with cefdinir to [employer] [facility]. Discharged from [employer] 2 days ago back home. CT chest 08/04/2024 reveals dense left lower lobe pneumonia. White count initially elevated, improved to normal by day of discharge. Remained afebrile during admission. Oxygen weaned to 1.5 L. After bronchoscopy, was able to wean to room air with saturation of 95%. Washout performed with cultures obtained. Had significant secretions during bronchoscopy. Treated initially with Zosyn, weaned to Levaquin to complete 5 days of therapy. Continue to follow BAL/sputum cultures after discharge. Given her clinical improvement however, will discharge home with close follow-up as an outpatient. Of note inflammatory markers elevated at discharge with ESR 64, CRP 50. Pro-Nino was 15. Would benefit from follow-up labs to monitor for resolution after discharge. #HIREN, ATN ? Initial creatinine 2.1, improved to 1.2 by day of discharge. BUN 27. Appears at baseline at this time. Likely prerenal from her nausea and vomiting #A-fib: Currently rate controlled. Resume home metoprolol, amiodarone, Eliquis. #Hypertension: Hold home spironolactone, losartan, Lasix due to HIREN. #COPD: Resume home Trelegy. #Recurrent bladder cancer with recent resection: Will be following up with urology to begin chemotherapy soon. Total time spent on discharge 32 minutes in counseling, documentation, chart review, and direct care with patient. Exam Data for Last 24 hours Vital signs and Labs for Last 24 Hours: Temp Pulse Resp BP Pulse Ox O2 Del Method O2 Flow Rate 98.7 F 89 16 135/64 96 Nasal Cannula 1.5 08/05/24 04:00 08/05/24 04:00 08/05/24 04:00 08/05/24 04:00 08/05/24 04:00 08/05/24 07:00 08/05/24 07:00 Laboratory Results - last 24 hr 08/04/24 06:38: WBC 7.4 D, RBC 3.45 L, Hgb 9.8 L, Hct 31.4 L, MCV 91.0, MCH 28.4, MCHC 31.2 L, RDW 14.2, Plt Count 206, MPV 10.3, Neut % (Auto) 66.3, Lymph % (Auto) 17.6, [place] % (Auto) 7.3, Eos % (Auto) 8.2, Baso % (Auto) 0.3, Neut # (Auto) 4.9, Lymph # (Auto) 1.3, [place] # (Auto) 0.5, Eos # (Auto) 0.6 H, Baso # (Auto) 0.0, Sodium 140, Potassium 4.5, Chloride 108 H, Carbon Dioxide 29, Anion Gap 7.5, BUN 39 H, Creatinine 1.80 H, Estimated Creat Clear 32, Estimated GFR 27 L, Est GFR ( Amer) 33 L, Glucose 93 D, Calcium 8.5, Magnesium 2.0 D 08/05/24 05:40: WBC 10.8 D, RBC 3.39 L, Hgb 9.6 L, Hct 30.3 L, MCV 89.4, MCH 28.3, MCHC 31.7 L, RDW 13.9, Plt Count 204, MPV 10.5 H, Neut % (Auto) 90.5 H, Lymph % (Auto) 6.2 L, [place] % (Auto) 2.6, Eos % (Auto) 0.0 L, Baso % (Auto) 0.1, Neut # (Auto) 9.8 H, Lymph # (Auto) 0.7, [place] # (Auto) 0.3, Eos # (Auto) 0.0, Baso # (Auto) 0.0, ESR 64 H, Sodium 139 08/05/24 05:40: Sodium 140, Potassium 4.4 08/05/24 05:40: Potassium 4.6, Chloride 109 H 08/05/24 05:40: Chloride 108 H, Carbon Dioxide 26 08/05/24 05:40: Carbon Dioxide 24, Anion Gap 8.4 08/05/24 05:40: Anion Gap 12.6, BUN 25 H D 08/05/24 05:40: BUN 27 H, Creatinine 1.20 H D 08/05/24 05:40: Creatinine 1.20 H, Estimated Creat Clear 51 08/05/24 05:40: Estimated Creat Clear 51, Estimated GFR 43 L 08/05/24 05:40: Estimated GFR 43 L, Est GFR ( Amer) 52 L D 08/05/24 05:40: Est GFR ( Amer) 52 L, Glucose 121 H D 08/05/24 05:40: Glucose 119 H, Calcium 9.0 08/05/24 05:40: Calcium 8.9, Total Bilirubin 0.3, AST 28, ALT 20 D, Alkaline Phosphatase 54, C-Reactive Protein 50.9 H, Total Protein 6.3, Albumin 3.6, Globulin 2.7, Albumin/Globulin Ratio 1.3, Procalcitonin 15.2 H I & O for Last 24 hours: Intake & Output 08/02/24 08/03/24 08/04/24 08/05/24 23:59 23:59 23:59 23:59 Intake Total 1020 / 1070 1770 / 1820 50 / 50 Output Total 0 / 0 0 / 0 0 / 0 Balance 1020 / 1070 1770 / 1820 50 / 50 Weight 82.5 kg 83.007 kg 83 kg 87.09 kg Microbiology Reports for the Last 24 Hours: Microbiology 08/04/24 13:05 Bronchial Washings - Left Lower Lobe Gram Stain - Final 08/04/24 13:05 Transbronchial Biopsy - Biopsy Gram Stain - Final 08/02/24 20:30 Blood Blood Culture - Preliminary NO GROWTH AFTER 48 HOURS 08/02/24 20:30 Blood Blood Culture - Preliminary NO GROWTH AFTER 48 HOURS 08/03/24 00:10 Sputum - Expectorated Sputum Gram Stain - Final 08/03/24 00:10 Sputum - Expectorated Sputum Sputum Culture - Preliminary 08/02/24 21:02 Urine,Catheterized Urine Culture - Final No growth. Constitutional Constitutional: no acute distress, obese, chronically ill appearing and cooperative *Routine HEENT Exam Head: Present normocephalic Eye: Present EOMI and PERRL ENT: Present mucous membranes moist *Routine Neck Exam Neck: Present supple; Absent lymphadenopathy *Routine Respiratory Exam Respiratory: Present prolonged expiratory phase; Absent rhonchi, wheezes or crackles *Routine Cardiovascular Exam Cardiovascular: Present RRR *Routine Abdominal Exam Abdominal: Present soft and normoactive bowel sounds; Absent tenderness *Routine Rectal Exam Patient deferred: visual exam *Routine Exam Patient deferred: external exam *Routine Extremities Exam Extremities: Absent cyanosis, clubbing or edema *Routine Skin Exam Skin: Present warm; Absent rash *Routine Neurological Exam Neurological: Present alert, oriented X3 and moving all extremities; Absent altered mental status Results Data Completed and Pending Labs on day of discharge: Labs from last 24 hours 08/05/24 08/05/24 08/05/24 05:40 05:40 05:40 WBC RBC Hgb Hct MCV MCH MCHC RDW Plt Count MPV Neut % (Auto) Lymph % (Auto) [place] % (Auto) Eos % (Auto) Baso % (Auto) Neut # (Auto) Lymph # (Auto) [place] # (Auto) Eos # (Auto) Baso # (Auto) ESR Sodium Potassium Chloride Carbon Dioxide Anion Gap BUN Creatinine Estimated Creat Clear Estimated GFR Est GFR ( Amer) 52 L Glucose 119 H 121 H D Calcium 8.9 9.0 Magnesium Total Bilirubin 0.3 AST 28 ALT 20 D Alkaline Phosphatase 54 C-Reactive Protein 50.9 H Total Protein 6.3 Albumin 3.6 Globulin 2.7 Albumin/Globulin Ratio 1.3 Procalcitonin 15.2 H 08/05/24 08/05/24 08/05/24 05:40 05:40 05:40 WBC RBC Hgb Hct MCV MCH MCHC RDW Plt Count MPV Neut % (Auto) Lymph % (Auto) [place] % (Auto) Eos % (Auto) Baso % (Auto) Neut # (Auto) Lymph # (Auto) [place] # (Auto) Eos # (Auto) Baso # (Auto) ESR Sodium Potassium Chloride Carbon Dioxide Anion Gap BUN Creatinine 1.20 H Estimated Creat Clear 51 51 Estimated GFR 43 L 43 L Est GFR ( Amer) 52 L D Glucose Calcium Magnesium Total Bilirubin AST ALT Alkaline Phosphatase C-Reactive Protein Total Protein Albumin Globulin Albumin/Globulin Ratio Procalcitonin 08/05/24 08/05/24 08/05/24 05:40 05:40 05:40 WBC RBC Hgb Hct MCV MCH MCHC RDW Plt Count MPV Neut % (Auto) Lymph % (Auto) [place] % (Auto) Eos % (Auto) Baso % (Auto) Neut # (Auto) Lymph # (Auto) [place] # (Auto) Eos # (Auto) Baso # (Auto) ESR Sodium Potassium Chloride Carbon Dioxide 24 Anion Gap 12.6 8.4 BUN 27 H 25 H D Creatinine 1.20 H D Estimated Creat Clear Estimated GFR Est GFR ( Amer) Glucose Calcium Magnesium Total Bilirubin AST ALT Alkaline Phosphatase C-Reactive Protein Total Protein Albumin Globulin Albumin/Globulin Ratio Procalcitonin 08/05/24 08/05/24 08/05/24 05:40 05:40 05:40 WBC RBC Hgb Hct MCV MCH MCHC RDW Plt Count MPV Neut % (Auto) Lymph % (Auto) [place] % (Auto) Eos % (Auto) Baso % (Auto) Neut # (Auto) Lymph # (Auto) [place] # (Auto) Eos # (Auto) Baso # (Auto) ESR Sodium 140 Potassium 4.6 4.4 Chloride 108 H 109 H Carbon Dioxide 26 Anion Gap BUN Creatinine Estimated Creat Clear Estimated GFR Est GFR ( Amer) Glucose Calcium Magnesium Total Bilirubin AST ALT Alkaline Phosphatase C-Reactive Protein Total Protein Albumin Globulin Albumin/Globulin Ratio Procalcitonin 08/05/24 08/04/24 05:40 06:38 WBC 10.8 D 7.4 D RBC 3.39 L 3.45 L Hgb 9.6 L 9.8 L Hct 30.3 L 31.4 L MCV 89.4 91.0 MCH 28.3 28.4 MCHC 31.7 L 31.2 L RDW 13.9 14.2 Plt Count 204 206 MPV 10.5 H 10.3 Neut % (Auto) 90.5 H 66.3 Lymph % (Auto) 6.2 L 17.6 [place] % (Auto) 2.6 7.3 Eos % (Auto) 0.0 L 8.2 Baso % (Auto) 0.1 0.3 Neut # (Auto) 9.8 H 4.9 Lymph # (Auto) 0.7 1.3 [place] # (Auto) 0.3 0.5 Eos # (Auto) 0.0 0.6 H Baso # (Auto) 0.0 0.0 ESR 64 H Sodium 139 140 Potassium 4.5 Chloride 108 H Carbon Dioxide 29 Anion Gap 7.5 BUN 39 H Creatinine 1.80 H Estimated Creat Clear 32 Estimated GFR 27 L Est GFR ( Amer) 33 L Glucose 93 D Calcium 8.5 Magnesium 2.0 D Total Bilirubin AST ALT Alkaline Phosphatase C-Reactive Protein Total Protein Albumin Globulin Albumin/Globulin Ratio Procalcitonin Preliminary micro results at discharge 08/02/24 20:30 Blood Culture - Preliminary Blood NO GROWTH AFTER 48 HOURS 08/02/24 20:30 Blood Culture - Preliminary Blood NO GROWTH AFTER 48 HOURS 08/03/24 00:10 Sputum Culture - Preliminary Sputum - Expectorated Sputum DS: Diagnosis Discharge Diagnosis (1) Acute respiratory failure with hypoxia: Status: Acute Code(s): J96.01 - Acute respiratory failure with hypoxia (2) Pneumonia: Status: Acute Code(s): J18.9 - Pneumonia, unspecified organism Qualifiers: Laterality: left Lung location: lower lobe of lung Pneumonia type: due to unspecified organism Qualified Code(s): J18.9 - Pneumonia, unspecified organism (3) COPD (chronic obstructive pulmonary disease): Status: Acute Code(s): J44.9 - Chronic obstructive pulmonary disease, unspecified Qualifiers: COPD type: unspecified COPD Qualified Code(s): J44.9 - Chronic obstructive pulmonary disease, unspecified (4) Hypertension: Status: Acute Code(s): I10 - Essential (primary) hypertension Qualifiers: Hypertension type: unspecified Qualified Code(s): I10 - Essential (primary) hypertension (5) Atrial fibrillation: Status: Acute Code(s): I48.91 - Unspecified atrial fibrillation Qualifiers: Atrial fibrillation type: paroxysmal Qualified Code(s): I48.0 - Paroxysmal atrial fibrillation (6) UTI (urinary tract infection): Status: Acute Code(s): N39.0 - Urinary tract infection, site not specified (7) Bladder cancer: Status: Chronic Code(s): C67.9 - Malignant neoplasm of bladder, unspecified (8) HIREN (acute kidney injury): Status: Acute Code(s): N17.9 - Acute kidney failure, unspecified Meds Home Medications and Allergies Home Medications ?Medication ?Instructions ?Recorded ?Confirmed ?Type anastrozole 1 mg tablet 1 mg PO DAILY 07/12/24 08/02/24 History apixaban 5 mg tablet 5 mg PO BID 07/12/24 08/02/24 History escitalopram oxalate 20 mg tablet 20 mg PO DAILY 07/12/24 08/02/24 History famotidine 20 mg tablet 20 mg PO BID 07/12/24 08/02/24 History metoprolol succinate 25 mg 25 mg PO DAILY 07/12/24 08/02/24 History tablet,extended release 24 hr nitroglycerin 0.4 mg sublingual 0.4 mg sublingual Q5MINP PRN Chest 07/12/24 08/03/24 History tablet Pain rosuvastatin 40 mg tablet 40 mg PO HS 07/12/24 08/03/24 History vibegron 75 mg tablet 75 mg PO DAILY 07/12/24 08/02/24 History losartan 100 mg tablet 100 mg PO DAILY 07/13/24 08/02/24 History fluticasone fur. 100 mcg-umeclid 1 inh inhalation DAILY 30 days #60 07/15/24 08/02/24 Rx 62.5 mcg-vilant 25 mcg ea inhalat.powder (Trelegy Ellipta) furosemide 20 mg tablet 40 mg (2 x 20 mg) PO DAILY 30 days 07/15/24 08/02/24 Rx #60 tabs spironolactone 25 mg tablet 25 mg PO DAILY #30 tabs 07/15/24 08/02/24 Rx amiodarone 400 mg tablet 400 mg PO BID 08/03/24 08/03/24 History levofloxacin 750 mg tablet 750 mg PO DAILY 3 days #3 tabs 08/05/24 Rx New Prescriptions to Start Prescriptions: levofloxacin Josiah Hernandez Allergies Allergy/AdvReac Type Severity Reaction Status Date / Time bacitracin (From Neosporin Allergy Unknown Unknown Verified 07/28/24 14:43 Plus PainRelief(demond)) allergy reaction neomycin (From Neosporin Allergy Unknown Unknown Verified 07/28/24 14:43 Plus PainRelief(demond)) allergy reaction Penicillins Allergy Unknown Unknown Verified 07/28/24 14:43 allergy reaction polymyxin B (From Neosporin Allergy Unknown Unknown Verified 07/28/24 14:43 Plus PainRelief(demond)) allergy reaction pramoxine (From Neosporin Allergy Unknown Unknown Verified 07/28/24 14:43 Plus PainRelief(demond)) allergy reaction Discharge Plan Disposition Patient Disposition: Home Health Service Condition: Fair Discharge Order Discharge Orders: Discharge Order (Routine); Ordered 08/05/24 Ordered By: Josiah Hernandez Follow up Plan Follow up with: Ameya Rae MD [Physician] - 08/12/24 11:20 am Amburgey,Taff[place], [employer] [Primary Care Provider] - 08/07/24 3:45 pm Prescriptions/Medication Reconciliation: New levofloxacin 750 mg tablet 750 mg PO DAILY 3 Days Qty: 3 0RF Continued anastrozole 1 mg Tablet 1 mg PO DAILY famotidine 20 mg Tablet 20 mg PO BID nitroglycerin 0.4 mg Tablet, Sublingual 0.4 mg sublingual Q5MINP PRN (Reason: Chest Pain) metoprolol succinate 25 mg Tablet Extended Release 24 Hr 25 mg PO DAILY escitalopram oxalate 20 mg Tablet 20 mg PO DAILY rosuvastatin 40 mg Tablet 40 mg PO HS apixaban 5 mg Tablet 5 mg PO BID vibegron 75 mg Tablet 75 mg PO DAILY losartan 100 mg Tablet 100 mg PO DAILY furosemide 20 mg Tablet 40 mg PO DAILY 30 Days Qty: 60 0RF spironolactone 25 mg tablet 25 mg PO DAILY Qty: 30 0RF Trelegy Ellipta 100-62.5-25 mcg Blister With Device 1 inh inhalation DAILY 30 Days Qty: 60 0RF amiodarone 400 mg tablet 400 mg PO BID Problem Reconciliation Problems Reviewed?: Yes Patient Discharge Instructions ACTIVITY: Continue current activity DIET: continue same diet Patient Instructions: DI for Pneumonia -- Adult, DI for Urinary Tract Infection (UTI), DI for Hypoxia Print Language: Kiswahili Providers Primary Care Provider: Neida Hartman Admit Provider: Johnathan Macias Attending Provider: Johnathan Macias
[2024-08-05 07:47] LABS: Eosinophils % 1 % (0-3); Lymphocytes % 7 % (10-50); Monocytes % 2 % (2-9); Neutrophils % 90 % (42-76); Platelet Estimate Normal; RBC Morphology Normal; Total Cells Counted 100
[2024-08-05] MEDS: OXYBUTYNIN 5MG TAB 5 MG PO (08:02)
[2024-08-05] MEDS: APIXABAN 5MG TABLET 5 MG PO (08:02)
[2024-08-05] MEDS: AMIODARONE 200MG TABLET 400 MG PO (08:02)
[2024-08-05] MEDS: CITALOPRAM 40MG TABLET 40 MG PO (08:02)
[2024-08-05] MEDS: METOPROLOL SUCCINATE XL 25MG TABLET 25 MG PO (08:02)
--- NOTE | 2024-08-05 09:38 | EXP.PULM.PN ---
Subjective *Date: 08/05/24 *Time: 11:40 Interval history: No acute respiratory events overnight. Patient admits improved respiratory distress. Pulmonology Exam Inpatient Vital signs and Labs for Last 24 Hours: Temp Pulse Resp BP Pulse Ox O2 Del Method O2 Flow Rate 97.9 F 86 18 199/83 H 95 Nasal Cannula 1.5 08/05/24 07:57 08/05/24 07:57 08/05/24 07:57 08/05/24 07:57 08/05/24 07:57 08/05/24 09:00 08/05/24 09:00 Laboratory Results - last 24 hr 08/05/24 05:40: WBC 10.8 D, RBC 3.39 L, Hgb 9.6 L, Hct 30.3 L, MCV 89.4, MCH 28.3, MCHC 31.7 L, RDW 13.9, Plt Count 204, MPV 10.5 H, Neut % (Auto) 90.5 H, Lymph % (Auto) 6.2 L, [place] % (Auto) 2.6, Eos % (Auto) 0.0 L, Baso % (Auto) 0.1, Neut # (Auto) 9.8 H, Lymph # (Auto) 0.7, [place] # (Auto) 0.3, Eos # (Auto) 0.0, Baso # (Auto) 0.0, Total Counted 100, Neutrophils % (Manual) 90 H, Lymphocytes % (Manual) 7 L, Monocytes % (Manual) 2, Eosinophils % (Manual) 1, Platelet Estimate Normal, RBC Morphology Normal, ESR 64 H, Sodium 139 08/05/24 05:40: Sodium 140, Potassium 4.4 08/05/24 05:40: Potassium 4.6, Chloride 109 H 08/05/24 05:40: Chloride 108 H, Carbon Dioxide 26 08/05/24 05:40: Carbon Dioxide 24, Anion Gap 8.4 08/05/24 05:40: Anion Gap 12.6, BUN 25 H D 08/05/24 05:40: BUN 27 H, Creatinine 1.20 H D 08/05/24 05:40: Creatinine 1.20 H, Estimated Creat Clear 51 08/05/24 05:40: Estimated Creat Clear 51, Estimated GFR 43 L 08/05/24 05:40: Estimated GFR 43 L, Est GFR ( Amer) 52 L D 08/05/24 05:40: Est GFR ( Amer) 52 L, Glucose 121 H D 08/05/24 05:40: Glucose 119 H, Calcium 9.0 08/05/24 05:40: Calcium 8.9, Magnesium 2.0, Total Bilirubin 0.3, AST 28, ALT 20 D, Alkaline Phosphatase 54, C-Reactive Protein 50.9 H, Total Protein 6.3, Albumin 3.6, Globulin 2.7, Albumin/Globulin Ratio 1.3, Procalcitonin 15.2 H Temp Pulse Resp BP Pulse Ox O2 Del Method O2 Flow Rate 98.5 F 64 18 112/43 L 88 L Room Air 3.5 08/03/24 07:48 08/03/24 10:37 08/03/24 07:48 08/03/24 10:37 08/03/24 09:58 08/03/24 09:58 08/03/24 09:00 Laboratory Results - last 24 hr 08/02/24 19:47: SARS-CoV-2 (PCR) Not detected, Influenza A Untype (PCR) Not detected, Influenza Type B (PCR) Not detected 08/02/24 20:18: VBG pH 7.37, VBG pCO2 42.9, VBG pO2 25.0 L, VBG HCO3 24.1, VBG Total CO2 25.4, VBG O2 Saturation 40.5 L, VBG Base Excess -1.2, VBG Lactic Acid 2.2 H 08/02/24 20:30: WBC 10.9 H, RBC 4.30, Hgb 12.3, Hct 38.3, MCV 89.1, MCH 28.6, MCHC 32.1, RDW 13.8, Plt Count 278, MPV 9.9, Neut % (Auto) 91.3 H, Lymph % (Auto) 2.9 L, [place] % (Auto) 4.7, Eos % (Auto) 0.5, Baso % (Auto) 0.2, Neut # (Auto) 10.0 H, Lymph # (Auto) 0.3 L, [place] # (Auto) 0.5, Eos # (Auto) 0.1, Baso # (Auto) 0.0, Total Counted 100, Neutrophils % (Manual) 88 H, Lymphocytes % (Manual) 11, Eosinophils % (Manual) 1, Platelet Estimate Normal, RBC Morphology Normal, Sodium 137, Potassium 4.0, Chloride 98, Carbon Dioxide 30, Anion Gap 13.0, BUN 32 H, Creatinine 2.10 H, Estimated Creat Clear 28, Estimated GFR 23 L, Est GFR ( Amer) 27 L, Glucose 122 H, Calcium 9.1, Total Bilirubin 0.5, AST 36, ALT 27, Alkaline Phosphatase 78, Troponin I < 0.01, NT-Pro-B Natriuret Pep 531 H, Total Protein 8.0 D, Albumin 4.3, Globulin 3.7 H, Albumin/Globulin Ratio 1.2 08/02/24 21:02: Urine Color [place], Urine Appearance Clear, Urine pH 5.0, Ur Specific [place] 1.025, Urine Protein 2+ A, Urine Glucose (UA) 1+, Urine Ketones Trace, Urine Blood 1+ A, Urine Nitrate Positive A, Urine Bilirubin Negative, Urine Urobilinogen 4.0, Ur Leukocyte Esterase 2+ A, Urine RBC 10-20, Urine WBC 20-50, Ur Squamous Epith Cells 3-5, Urine Bacteria 1+, Hyaline Casts 10-20 08/02/24 23:20: Troponin I 0.02 08/03/24 00:30: Lactate 2.2 H 08/03/24 02:20: Troponin I < 0.01 08/03/24 02:50: Lactate 3.3 H 08/03/24 06:15: WBC 14.8 H D, RBC 3.60 L, Hgb 10.3 L D, Hct 32.1 L, MCV 89.2, MCH 28.6, MCHC 32.1, RDW 13.8, Plt Count 245, MPV 10.6 H, Neut % (Auto) 88.2 H, Lymph % (Auto) 5.5 L, [place] % (Auto) 5.6, Eos % (Auto) 0.1, Baso % (Auto) 0.2, Neut # (Auto) 13.1 H, Lymph # (Auto) 0.8, [place] # (Auto) 0.8, Eos # (Auto) 0.0, Baso # (Auto) 0.0, Sodium 134 L, Potassium 4.3, Chloride 99, Carbon Dioxide 27, Anion Gap 12.3, BUN 37 H, Creatinine 2.10 H, Estimated Creat Clear 28, Estimated GFR 23 L, Est GFR ( Amer) 27 L, Glucose 118 H, Calcium 8.5, Magnesium 1.8 08/03/24 08:09: Lactate 3.3 H I & O for Labs for Last 24 Hours: Intake & Output 08/02/24 08/03/24 08/04/24 08/05/24 23:59 23:59 23:59 23:59 Intake Total 1020 / 1070 1770 / 1820 410 / 410 Output Total 0 / 0 0 / 0 0 / 0 Balance 1020 / 1070 1770 / 1820 410 / 410 Weight 181 lb 14.102 oz 183 lb 182 lb 15.739 oz 192 lb Intake & Output 07/31/24 08/01/24 08/02/24 08/03/24 23:59 23:59 23:59 23:59 Intake Total 440 / 440 Output Total 0 / 0 Balance 440 / 440 Weight 181 lb 14.102 oz 183 lb Microbiology Reports for the Last 24 Hours: Microbiology 08/04/24 13:05 Bronchial Washings - Left Lower Lobe Gram Stain - Final 08/04/24 13:05 Transbronchial Biopsy - Biopsy Gram Stain - Final 08/02/24 20:30 Blood Blood Culture - Preliminary NO GROWTH AFTER 48 HOURS 08/02/24 20:30 Blood Blood Culture - Preliminary NO GROWTH AFTER 48 HOURS 08/03/24 00:10 Sputum - Expectorated Sputum Gram Stain - Final 08/03/24 00:10 Sputum - Expectorated Sputum Sputum Culture - Preliminary 08/02/24 21:02 Urine,Catheterized Urine Culture - Final No growth. Microbiology 08/03/24 00:10 Sputum - Expectorated Sputum Gram Stain - Final Constitutional: Present moderate distress Head: Present normocephalic and atraumatic ENT: Present normal exam, normal oropharynx and mucous membranes moist Neck: Present normal inspection and full ROM Respiratory: Present diminished air movement and able to speak in complete sentences; Absent respiratory distress, rhonchi or wheezes Cardiac: Present S1/S2, Tachycardia and radial pulses present GI: Present soft and distention; Absent tenderness or guarding Rectal (female): Present deferred (female): Present deferred Skin: Present intact; Absent cyanosis or jaundice Neuro: Present alert, awake and oriented x 3 Extremities: Present normal inspection; Absent clubbing or cyanosis Psychiatric: Present normal affect and cooperative Assessment and Plan *Assessment and plan (1) Pneumonia: Status: Acute Qualifiers: Laterality: left Lung location: lower lobe of lung Pneumonia type: due to unspecified organism Qualified Code(s): J18.9 - Pneumonia, unspecified organism Category: Medical Code(s): J18.9 - Pneumonia, unspecified organism (2) Acute respiratory failure with hypoxia: Status: Acute Category: Medical Code(s): J96.01 - Acute respiratory failure with hypoxia Plan Ms. Aerllano is a 83-year-old female with reported history of atrial fibrillation hypertension COPD cardiac dysrhythmias bladder cancer presented with fever worsening respiratory distress hypoxia vomiting. Patient upon presentation to ED needing new oxygen requirements pulmonary was called for further evaluation and management. Patient predominant complaint today include abdominal discomfort, nausea and vomiting. Denies any obvious choking episodes Neutrophilic predominant leukocytosis upon admission. Chest x-ray upon admission concerning bilateral peripheral effusions, however subsequent CT chest without contrast did not show any obvious effusions. Near complete Left lower lobe atelectasis noted with associated airspace disease. This noted left lower lobe changes appear new from her CT from July 2024 Interval update: No acute respiratory vents overnight. Status post bronchoscopy. Tolerating well. Copious amount of tenacious mucoid secretions in the left lower lung anand suction. BAL fluid cultures no organisms seen. Follow with final culture results. Improved aeration left lung anand on auscultation. Plan: Wean to room air this morning with saturations maintained at 95% and above Antibiotics can be weaned to levofloxacin to complete a total of 5-day course Incentive spirometry and flutter valve Follow-up with final bronchoscopy results DuoNebs 4 times daily as needed Resume home anticoagulation as per primary team Thank you for involving pulmonary in this patient care. Will follow the patient in pulmonary clinic 1 to 2 weeks post discharge.
--- NOTE | 2024-08-05 10:17 | EXP.ANES.II ---
[facility] Anesthesia Record Part II Anesthesia Record Part II Discharge Time: 13:52 Destination: Medical Surgical Department PACU nurse assessment reviewed?: Yes Patient Condition:: Good Anesthesia Complications:: None Swallowing reflex intact?: Yes Airway Patency: Patent Cyanosis?: No Blood Pressure: 161/98 SaO2: 94 Respiratory Rate: 16 Pulse Rate: 66 Temperature: 97.3 F Mental Status: Alert & Oriented Pain level:: 0 Nausea and/or vomitting:: None Intake, IV Amount: 400 Hydration: Adequate
[2024-08-05] MEDS: FLUTICASONE/UMECLIDIN/VILANTER 100/62.5/25MCG INHALER 1 PUFF IH (11:30)
[2024-08-05] MEDS: levoFLOXacin 750 MG TABLET PO (13:27)
--- NOTE | 2024-08-05 13:34 | SW/DCPLANNER ---
Texted [employer] and they have recieved the fax of patient's info. I let [employer] know that patient will be D/C today. Jody Moran
--- NOTE | 2024-08-06 10:47 | SW/DCPLANNER ---
Spoke with patient on the phone. Patient stated that the new antibiotic she is on is making her have bad diarrhea. Patient stated that she is aware of her upcoming appointments. Patient stated that she was able to get her new medicine picked up from clinic pharmacy. Patient stated that her friend is going to fish bait picker some yogurt for her for the diarrhea and is going to take some pepto bismol. Patient stated that she has no concerns or questions at this time. Jody Moran
== END 2024-08-05 16:04 | disposition home health service (06) | DRG 193 ==
LOC: ER 19:48 → 2ND 22:19
PROVIDERS: Internal Medicine Adolescent Medicine; Internal Medicine Pulmonary Disease; Nurse Practitioner; Nurse Practitioner Family; Admitting Provider Student in an Organized Health Care Education/Training Program; Emergency Provider Student in an Organized Health Care Education/Training Program; PCP Nurse Practitioner Family; Visit Provider Student in an Organized Health Care Education/Training Program
PROC: 0B9J8ZX Drainage of Left Lower Lung Lobe, Via Natural or Artificial Opening Endoscopic, Diagnostic (ICD-10-PCS; principal; 2024-08-04 12:00)
DX: J18.9 Pneumonia, unspecified organism (principal); J96.21 Acute and chronic respiratory failure with hypoxia; N17.9 Acute kidney failure, unspecified; J44.0 Chronic obstructive pulmonary disease with (acute) lower respiratory infection; Z95.0 Presence of cardiac pacemaker; I48.0 Paroxysmal atrial fibrillation; F17.210 Nicotine dependence, cigarettes, uncomplicated; I10 Essential (primary) hypertension; C67.9 Malignant neoplasm of bladder, unspecified; Z88.3 Allergy status to other anti-infective agents; Z79.899 Other long term (current) drug therapy; Z79.01 Long term (current) use of anticoagulants; Z86.73 Personal history of transient ischemic attack (TIA), and cerebral infarction without residual deficits
CPT/HCPCS: 36415; 71045; 71046; 71250; 76000; 76770; 80048; 80053; 81001; 82570; 82803; 83605; 83735; 83880; 84145; 84484; 84540; 85007; 85025; 85651; 86140; 87040; 87070; 87081; 87086; 87102; 87116; 87186; 87205; 87206; 87636; 88112; 88305; 89051; 93005; 94640; 94760; 94761; 97110; 97162; 97165; 97530; 97535; 99285; J3490; J0696; J1100; J1650; J2405; J2543; J3010; J7030; J7620

== ENCOUNTER 2024-08-12 11:53 | Outpatient (CLI) | payer MEDICARE, SELFPAY ==
--- NOTE | 2024-08-12 11:56 | XR_ITS ---
FINAL REPORT TECHNIQUE: Chest PA & Lateral CLINICAL HISTORY: SOB COMPARISON: 08/04/2024 FINDINGS: 2 views of the chest were performed. A left-sided pacemaker is once again noted. Mild cardiomegaly is present. The mediastinum is within normal limits. There is no acute cardiopulmonary process. There are no pleural effusions. There is no pneumothorax. The bony thorax appears intact. IMPRESSION: Mild cardiomegaly, with no acute cardiopulmonary process. Reviewed, Interpreted and Dictated by Fransisco Iraheta MD Transcribed by Orin Mosley Authenticated and [facility]
== END 2024-08-12 23:59 | disposition home or self-care (01) ==
LOC: RAD 11:54
PROVIDERS: PCP Nurse Practitioner Family; Visit Provider Internal Medicine Pulmonary Disease
DX: R06.02 Shortness of breath (principal)
CPT/HCPCS: 71046